=== PATIENT | female | born 1990 | race African-American/Black ===

== ENCOUNTER 2017-01-18 17:27 | Emergency (ER) | payer MEDICAID ==
[~2017-01-18] VITALS: Ht 157.5 cm; Wt 74.8 kg
[~2017-01-18 17:27] MED LIST: AMOXICILLIN500 M2 PO; BENADRYL 25MG C25 MG PO; BUPROPION HCL75 M1 PO; CLARITIN 10MG T10 MG PO; CLONAZEPAM 1MG T1 MG PO; CYCLOBENZAPRINE10 M1 OR; DICLOFENAC SOD75 MG PO; DIFLUCAN150 MG PO; DOXYCYCLINE100 M6 PO; ESCITALOPRAM20 MG PO; FLAGYL 500MG.500 MG PO; HYDROXYZINE 25M25 MG PO; KLONOPIN 0.5MG0.5 MG NG; NOMEDS XX; PROMETH/CODEIN120 ML PO; QUETIAPINE FUMA25 M1 PO; QUETIAPINE FUMA50 M1 PO; ROBINUL FORTE2 MG PO; ZOFRAN ODT4 MG PO
[2017-01-18 17:56] LABS: URINE BILIRUBIN - DIPSTICK NEGATIVE (NEG); URINE BLOOD NEGATIVE (NEG)
--- OUTSIDE RECORDS SUMMARY | 2017-01-18 18:24 | External Medical Summary Rpt ---
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 02 02 0 15 2 HO 40 HE Ac 59 -2 -2 .0 ME 04 ND ti 10 1- 1- 00 TO 34 ER ve 38 20 20 WN 4 SO 50 11 11 N 5 PH RO AR BE MA RT CY W CL 00 02 02 0 20 5 HO 60 HE Ac IN 59 -2 -2 .0 ME 13 ND ti DA 15 1- 1- 00 TO 18 ER ve MY 70 20 20 WN 9 SO CI 80 11 11 N N 1 PH RO HC AR BE L MA RT 15 CY W 0 MG CA PS UL E PO 00 12 02 6 10 30 HO 60 KN Ac LY 57 -1 -0 54 ME 10 IG ti ET 40 3- 7- .0 TO 16 HT ve HY 41 20 20 00 WN 4 LE 20 10 11 SHAWN NE 5 PH EL AR A GL MA YC CY OL 33 50 PO WD 00 12 01 5 9. 30 HO 60 BA Ac 17 -2 -2 00 ME 10 LB ti 30 9- 6- 0 TO 76 AU ve 75 20 20 WN 0 GH 00 10 [address] BLU EW CY P NE 00 09 01 5 30 30 HO 60 KN Ac XI 18 -0 -2 .0 ME 06 IG ti UM 65 7- 4- 00 TO 33 HT ve 04 [address] 03 10 11 SHAWN 1 PH EL 40 AR A MA MG CY CA PS UL E PO 51 12 01 6 10 30 HO 60 KN Ac LY 99 -1 -1 54 ME 10 IG ti ET 10 3- 0- .0 TO 16 HT ve HY 45 20 20 00 WN 4 LE 75 10 11 SHAWN NE 7 PH EL AR A GL MA YC CY OL 33 50 PO WD 00 12 12 5 9. 30 HO 60 BA Ac 17 -2 -2 00 ME 10 LB ti 30 9- 9- 0 TO 76 AU ve 75 20 20 WN 0 GH 00 10 [address] HURT EW CY P PO 61 12 12 0 10 5 HO 60 KN Ac LY 31 -2 -2 .0 ME 10 IG ti MY 40 8- 8- 00 TO 69 HT ve XI 62 20 20 WN 2 N 81 10 10 SHAWN B- 0 PH EL TM AR A P MA EY CY E DR OP S DI 00 10 12 2 2. 20 HO 40 KN Ac 18 -1 -2 00 ME 02 IG ti TA 70 5- 7- 0 TO 88 HT ve T 65 20 20 WN 5 AC 92 10 10 SHAWN UD 0 PH EL IA AR A L MA 12 CY .5 -1 5- 20 MG NE 00 09 12 5 30 30 HO 60 KN Ac XI 18 -0 -2 .0 ME 06 IG ti UM 65 7- 7- 00 TO 33 HT ve 04 [address] 03 10 10 SHAWN 1 PH EL 40 AR A MA MG CY CA PS UL E PO 51 12 12 6 10 30 HO 60 KN Ac LY 99 -1 -1 54 ME 10 IG ti ET 10 3- 3- .0 TO 16 HT ve HY 45 20 20 00 WN 4 LE 75 10 10 SHAWN NE 7 PH EL AR A GL MA YC CY OL 33 50 PO WD FL 49 12 12 0 45 30 HO 60 AL Ac UO 88 -0 -0 .0 ME 09 I ti XE 40 1- 1- 00 TO 60 RI ve TI 73 20 20 WN 4 ZW NE 40 10 10 AN 1 PH HC AR L MA 10 CY MG TA BL ET TR 50 12 12 0 60 30 HO 60 AL Ac AZ 11 -0 -0 .0 ME 09 I ti OD 10 1- 1- 00 TO 60 RI ve ON 43 20 20 WN 5 ZW E 30 10 10 AN 50 2 PH AR MG MA CY TA BL ET 00 11 12 1 9. 30 HO 60 BA Ac 17 -0 -0 00 ME 08 LB ti 30 3- 1- 0 TO 48 AU ve 75 20 20 WN 5 GH 00 10 [address] BLU PATE CY P NE 00 09 11 5 30 30 HO 60 KN Ac XI 18 -0 -2 .0 ME 06 IG ti UM 65 7- 9- 00 TO 33 HT ve 04 [address] 03 10 10 SHAWN 1 PH EL 40 AR A MA MG CY CA PS UL E ON 62 11 11 0 12 30 HO 60 FA Ac DA 75 -0 -0 .0 ME 08 IN ti NS 60 8- 8- 00 TO 57 ve ET 24 20 20 WN 2 MA RO 06 10 10 TT N 4 PH HE OD AR W T MA B 4 CY MG TA BL ET 00 11 11 1 9. 30 HO 60 BA Ac 17 -0 -0 00 ME 08 LB ti 30 3- 3- 0 TO 48 AU ve 75 20 20 WN 5 GH 00 10 [address] BLU PATE CY P NE 00 09 11 5 30 30 HO 60 KN Ac XI 18 -0 -0 .0 ME 06 IG ti UM 65 7- 1- 00 TO 33 HT ve 04 [address] 03 10 10 SHAWN 1 PH EL 40 AR A MA MG CY CA PS UL E TR 50 10 10 0 60 30 HO 60 LA Ac AZ 11 -1 -1 .0 ME 07 KH ti OD 10 8- 8- 00 TO 83 IA ve ON 43 20 20 WN 4 NI E 30 10 10 50 2 PH AR HO MG MA K CY K TA BL ET FL 49 10 10 0 45 15 HO 60 LA Ac UO 88 -1 -1 .0 ME 07 KH ti XE 40 8- 8- 00 TO 84 IA ve TI 73 20 20 WN 9 NI NE 40 10 10 1 PH HC AR HO L MA K 10 CY K MG TA BL ET DI 00 10 10 2 2. 20 HO 40 KN Ac 18 -1 -1 00 ME 02 IG ti TA 70 5- 5- 0 TO 88 HT ve T 65 20 20 WN 5 AC 92 10 10 SHAWN UD 0 PH EL IA AR A L MA 12 CY .5 -1 5- 20 MG AZ 59 10 10 0 6. 5 HO 60 BA Ac IT 76 -0 -0 00 ME 07 LB ti HR 23 6- 6- 0 TO 42 AU ve OM 06 20 20 WN 8 GH YC 00 10 10 IN [address] 25 BLU EW 0 CY P MG TA BL ET 00 10 10 0 9. 30 HO 60 BA Ac 17 -0 -0 00 ME 07 LB ti 30 6- 6- 0 TO 42 AU ve 75 20 20 WN 9 GH 00 10 [address] BLU PATE CY P NE 00 09 10 5 30 30 HO 60 KN Ac XI 18 -0 -0 .0 ME 06 IG ti UM 65 7- 4- 00 TO 33 HT ve 04 [address] 03 10 10 SHAWN 1 PH EL 40 AR A MA MG CY CA PS UL E NA 68 08 09 1 60 30 HO 60 KN Ac MT 46 -2 -1 .0 ME 05 IG ti OX 20 0- 7- 00 TO 75 HT ve EN 19 20 20 WN 2 00 10 10 SHAWN 50 5 PH EL 0 AR A MG MA CY TA BL ET IB 55 08 09 1 90 30 HO 60 KN Ac UP 11 -2 -1 .0 ME 05 IG ti RO 10 0- 7- 00 TO 75 HT ve FE 68 20 20 WN 4 N 40 10 10 SHAWN 80 5 PH EL 0 AR A MG MA CY TA BL ET PO 61 09 09 0 10 10 HO 60 BA Ac LY 31 -1 -1 .0 ME 06 LB ti MY 40 4- 4- 00 TO 65 AU ve XI 62 20 20 WN 1 GH N 81 10 10 B- 0 [address] Annabelle PATE EY CY P E DR OP S NE 00 09 09 5 30 30 HO 60 KN Ac XI 18 -0 -0 .0 ME 06 IG ti UM 65 7- 7- 00 TO 33 HT ve 04 [address] 03 10 10 SHAWN 1 PH EL 40 AR A MA MG CY CA PS UL E 60 08 08 0 20 5 HO 60 KN Ac 25 -3 -3 0. ME 06 IG ti 80 0- 0- 00 TO 07 HT ve 23 20 20 0 WN 7 91 10 10 SHAWN 6 PH EL AR A MA CY NA 00 08 08 0 30 7 HO 60 SA Ac SA 11 -2 -2 .0 ME 06 VA ti L 30 8- 8- 00 TO 01 GE ve SP 30 20 20 WN 0 RA 41 10 10 SA Y 0 PH ND 0. AR RA 05 MA L % CY MT 00 08 08 0 30 10 HO 60 KN Ac OM 59 -2 -2 .0 ME 05 IG ti ET 15 0- 0- 00 TO 75 HT ve ONEILL 30 20 20 WN 1 ZI 71 10 10 SHAWN NE 0 PH EL AR A 25 MA CY MG TA BL ET NA 68 08 08 1 60 30 HO 60 KN Ac MT 46 -2 -2 .0 ME 05 IG ti OX 20 0- 0- 00 TO 75 HT ve EN 19 20 20 WN 2 00 10 10 SHAWN 50 5 PH EL 0 AR A MG MA CY TA BL ET IB 55 08 08 1 90 30 HO 60 KN Ac UP 11 -2 -2 .0 ME 05 IG ti RO 10 0- 0- 00 TO 75 HT ve FE 68 20 20 WN 4 N 40 10 10 SHAWN 80 5 PH EL 0 AR A MG MA CY TA BL ET NE 00 02 08 3 30 30 HO 60 KN Ac XI 18 -0 -0 .0 ME 03 IG ti UM 65 4- 9- 00 TO 24 HT ve 04 [address] 03 10 10 SHAWN 1 PH EL 40 AR A MA MG CY CA PS UL E NE 00 02 07 3 30 30 HO 60 KN Ac XI 18 -0 -1 .0 ME 03 IG ti UM 65 4- 2- 00 TO 24 HT ve 04 [address] 03 10 10 SHAWN 1 PH EL 40 AR A MA MG CY CA PS UL E MONTES 53 06 06 0 20 10 HO 60 BA Ac LF 48 -1 -1 .0 ME 03 LB ti AM 90 6- 6- 00 TO 96 AU ve ET 14 20 20 WN 9 GH HO 60 10 10 XA 5 [address] MALIA HURT EW -T CY P MP DS TA BL ET AC 00 06 06 0 9. 3 HO 40 KN Ac ET 60 -1 -1 00 ME 01 IG ti AM 32 6- 6- 0 TO 83 HT ve IN 33 20 20 WN 1 OP 83 10 10 SHAWN HE 2 PH EL N- AR A CO MA D CY #3 TA BL ET NE 00 02 06 3 30 30 HO 60 KN Ac XI 18 -0 -1 .0 ME 03 IG ti UM 65 4- 4- 00 TO 24 HT ve 04 [address] 03 10 10 SHAWN 1 PH EL 40 AR A MA MG CY CA PS UL E NE 00 02 05 3 30 30 HO 60 KN Ac XI 18 -0 -1 .0 ME 03 IG ti UM 65 4- 8- 00 TO 24 HT ve 04 [address] 03 10 10 SHAWN 1 PH EL 40 AR A MA MG CY CA PS UL E 66 05 05 0 24 8 HO 60 KN Ac 99 -1 -1 0. ME 03 IG ti 20 1- 1- 00 TO 12 HT ve 22 20 20 0 WN 1 00 10 10 SHAWN 4 PH EL AR A MA CY 50 03 03 0 30 10 KR 64 KN Ac 11 -1 -1 .0 OG 16 IG ti 10 2- 2- 00 ER 91 HT ve 30 20 20 0 80 10 10 PH SHAWN 1 AR EL MA A CY # 24 70 9 PE 00 03 03 0 59 1 KR 64 KN Ac RM 47 -1 -1 .0 OG 16 IG ti ET 25 2- 2- 00 ER 91 HT ve HR 24 20 20 1 IN 26 10 10 PH SHAWN 7 AR EL 1% MA A CY LO # TI ON 24 70 9 00 01 02 01 9. 30 KR 64 KN Ac 17 -1 -2 00 OG 06 IG ti 30 2- 6- 0 ER 66 HT ve 75 20 20 7 00 10 10 PH SHAWN 0 AR EL M A L- 70 9 NE 00 02 02 00 30 30 KR 64 KN Ac XI 18 -0 -1 .0 OG 10 IG ti UM 65 4- 1- 00 ER 60 HT ve [address] 03 10 10 PH SHAWN 1 AR EL 40 M A L- MG 70 9 CA PS UL E 00 01 01 00 9. 30 KR 64 KN Ac 17 -1 -2 00 OG 06 IG ti 30 2- 8- 0 ER 66 HT ve 75 20 20 7 00 10 10 PH SHAWN 0 AR EL M A L- 70 9 CL 00 01 01 00 50 25 KR 64 KN Ac IN 37 -1 -2 .0 OG 06 IG ti DA 88 2- 8- 00 ER 66 HT ve MY 68 20 20 6 CI 85 10 10 PH SHAWN N- 4 AR EL BE M A NZ L- OY 70 L 9 PE RO X 1- 5% TR 50 01 01 00 30 30 KR 64 No Ac AZ 11 -0 -2 .0 OG 06 t ti OD 10 5- 8- 00 ER 83 Av ve ON 43 20 20 5 ai E 30 10 10 PH la 50 1 AR bl M e MG L- 70 TA 9 BL ET TR 50 12 12 00 30 30 KR 64 No Ac AZ 11 -0 -1 .0 OG 00 t ti OD 10 7- 7- 00 ER 94 Av ve ON 43 20 20 2 ai E 30 09 09 PH la 50 1 AR bl M e MG L- 70 TA 9 BL ET 66 11 12 00 20 10 KR 63 KN Ac 99 -2 -0 0. OG 98 IG ti 20 4- 3- 00 ER 70 HT ve 22 20 20 0 6 00 09 09 PH SHAWN 4 AR EL M A L- 70 9 FL 49 11 12 00 30 20 KR 63 No Ac UO 88 -2 -0 .0 OG 98 t ti XE 40 3- 3- 00 ER 43 Av ve TI 73 20 20 4 ai NE 40 09 09 PH la 1 AR bl HC M e L L- 10 70 9 MG TA BL ET CI 55 11 11 00 9. 18 KR 63 No Ac TA 11 -0 -1 00 OG 95 t ti LO 10 9- 9- 0 ER 87 Av ve MT 34 20 20 2 ai AM 40 09 09 PH la 1 AR bl HB M e R L- 40 70 9 MG TA BL ET TR 50 11 11 00 30 20 KR 63 No Ac AZ 11 -0 -1 .0 OG 95 t ti OD 10 9- 9- 00 ER 87 Av ve ON 43 20 20 0 ai E 30 09 09 PH la 50 1 AR bl M e MG L- 70 TA 9 BL ET ON 00 10 11 00 12 30 WA 71 CE Ac DA 78 -2 -0 .0 L- 55 LL ti NS 15 5- 5- 00 MA 40 AR ve ET 23 20 20 RT 9 OS RO 86 09 09 I N 4 PH - OD AR YO T MA RB 4 CY A MG PA #5 TR TA 71 IC BL K ET M IB 53 10 11 00 24 8 KR 63 FI Ac UP 74 -2 -0 .0 OG 93 NL ti RO 60 2- 5- 00 ER 47 EY ve FE 46 20 20 9 N 60 09 09 PH PA 80 5 AR UL 0 M W MG L- 70 TA 9 BL ET 14 09 10 00 20 10 KR 63 KN Ac 29 -2 -0 .0 OG 87 IG ti 00 8- 8- 00 ER 25 HT ve 24 20 20 2 22 09 09 PH SHAWN 0 AR EL M A L- 70 9 OG 52 08 09 00 28 28 KR 63 CE Ac ES 54 -1 -1 .0 OG 78 LL ti TR 40 1- 0- 00 ER 08 AR ve EL 84 20 20 6 OS 82 09 09 PH I TA 8 AR - BL M YO ET L- RB 70 A 9 PA TR IC K M MT 68 08 09 00 30 10 KR 63 KN Ac OM 38 -2 -1 .0 OG 80 IG ti ET 20 7- 0- 00 ER 98 HT ve ONEILL 04 20 20 7 ZI 10 09 09 PH SHAWN NE 1 AR EL M A 25 L- 70 MG 9 TA BL ET 00 09 09 00 16 30 KR 63 KN Ac 17 -0 -1 .0 OG 82 IG ti 33 3- 0- 00 ER 52 HT ve 00 20 20 8 10 09 09 PH SHAWN 1 AR EL M A L- 70 9 IB 53 08 08 00 90 30 KR 63 KN Ac UP 74 -1 -2 .0 OG 79 IG ti RO 60 7- 7- 00 ER 21 HT ve FE 46 20 20 6 N 60 09 09 PH SHAWN 80 5 AR EL 0 M A MG L- 70 TA 9 BL ET MONTES 53 08 08 00 10 5 KR 63 CL Ac LF 74 -1 -2 .0 OG 77 AR ti AM 60 0- 7- 00 ER 97 K ve ET 27 20 20 1 SHAWN HO 20 09 09 PH HN XA 5 AR ZO M LE L- -T 70 MP 9 DS TA BL ET NA 00 08 08 00 10 5 KR 63 CE Ac MT 09 -1 -2 .0 OG 78 LL ti OX 30 0- 7- 00 ER 08 AR ve EN 14 20 20 7 OS 90 09 09 PH I 50 5 AR - 0 M YO MG L- RB 70 A TA 9 PA BL TR ET IC K M ON 68 08 08 00 12 30 KR 63 KN Ac DA 46 -1 -2 .0 OG 78 IG ti NS 20 3- 7- 00 ER 53 HT ve ET 15 20 20 7 RO 71 09 09 PH SHAWN N 3 AR EL OD M A T L- 4 70 MG 9 TA BL ET OG 52 07 08 00 28 25 KR 63 CE Ac ES 54 -3 -1 .0 OG 48 LL ti TR 40 0- 3- 00 ER 26 AR ve EL 84 20 20 6 OS 82 09 09 PH I TA 8 AR - BL M YO ET L- RB 70 A 9 PA TR IC K M MONTES 53 07 07 00 20 10 KR 63 DA Ac LF 74 -1 -3 .0 OG 46 BN ti AM 60 7- 0- 00 ER 33 EY ve ET 27 20 20 5 HO 20 09 09 PH GI XA 5 AR NA ZO M LE L- -T 70 MP 9 DS TA BL ET 67 07 07 00 23 30 KR 63 DA Ac 40 -1 -3 7. OG 46 BN ti 50 7- 0- 00 ER 33 EY ve 43 20 20 0 6 00 09 09 PH GI 8 AR NA M L- 70 9 AM 00 05 06 00 20 10 KR 63 DA Ac OX 09 -2 -0 .0 OG 38 BN ti IC 32 8- 4- 00 ER 32 EY ve IL 26 20 20 9 LI 40 09 09 PH GI N 1 AR NA 87 M 5 L- MG 70 9 TA BL ET 60 05 06 00 24 12 KR 63 DA Ac 25 -2 -0 0. OG 38 BN ti 80 8- 4- 00 ER 33 EY ve 23 20 20 0 2 91 09 09 PH GI 6 AR NA M L- 70 9 IB 53 05 06 00 90 23 KR 63 DA Ac UP 74 -2 -0 .0 OG 38 BN ti RO 60 8- 4- 00 ER 33 EY ve FE 46 20 20 3 N 60 09 09 PH GI 80 5 AR NA 0 M MG L- 70 TA 9 BL ET 59 05 06 00 8. 25 KR 63 DA Ac 31 -2 -0 50 OG 38 BN ti 00 8- 4- 0 ER 33 EY ve 57 20 20 1 92 09 09 PH GI 0 AR NA M L- 70 9 53 05 06 00 14 7 KR 63 WA Ac 48 -1 -0 .0 OG 36 GN ti 90 9- 4- 00 ER 78 ER ve 14 20 20 3 00 09 09 PH PH 1 AR IL M LI L- P 70 L 9 00 05 05 00 10 2 KR 45 WA Ac 40 -0 -2 .0 OG 21 GN ti 60 8- 1- 00 ER 31 ER ve 35 20 20 9 70 09 09 PH PH 5 AR IL M LI L- P 70 L 9 00 05 05 00 42 14 KR 63 WA Ac 07 -0 -2 .0 OG 35 GN ti 46 8- 1- 00 ER 09 ER ve 34 20 20 3 62 09 09 PH PH 0 AR IL M LI L- P 70 L 9 VA 00 04 05 00 21 7 KR 63 GA Ac LT 17 -2 -0 .0 OG 32 SK ti RE 30 2- 7- 00 ER 20 IN ve X 56 20 20 0 S 1 [address] GM 4 AR EV M EN CA L- G PL 70 ET 9 NA 00 04 05 00 17 30 KR 63 DA Ac SO 08 -2 -0 .0 OG 33 BN ti NE 51 8- 7- 00 ER 17 EY ve X 28 20 20 6 50 80 09 09 PH GI 1 AR NA MC M G L- NA 70 SA 9 L SP RA Y MU 45 04 05 00 22 10 KR 63 GA Ac PI 80 -2 -0 .0 OG 32 SK ti RO 20 2- 7- 00 ER 19 IN ve CI 11 20 20 9 S N [address] 2% 2 AR EV M EN OI L- G NT 70 ME 9 NT 00 03 03 00 10 3 KR 45 SA Ac 40 -0 -2 .0 OG 18 DE ti 61 9- 6- 00 ER 99 K ve 72 20 20 8 MO 10 09 09 PH ONEILL 5 AR ME M D L- H 70 9 00 01 01 00 15 4 CV 19 AD Ac 12 -2 -3 0. S 98 KI ti 10 3- 0- 00 PH 30 NS ve 63 20 20 0 AR 81 09 09 MA JU 6 CY LI A 23 A 32 AZ 59 01 01 00 6. 5 CV 19 AD Ac IT 76 -2 -3 00 S 98 KI ti HR 23 3- 0- 0 PH 29 NS ve OM 06 20 20 AR YC 00 09 09 MA JU IN 1 CY LI A 25 23 A 0 32 MG TA BL ET VA 00 01 01 00 24 24 KR 63 HO Ac LT 17 -0 -1 .0 OG 13 LL ti RE 30 8- 5- 00 ER 36 EN ve X 56 20 20 4 1 50 09 09 PH SHAWN GM 4 AR AN M N CA L- E PL 70 ET 9 PE 00 12 01 00 28 7 KR 63 BA Ac NI 78 -1 -0 .0 OG 09 LD ti CI 11 3- 1- 00 ER 12 WI ve LL 65 20 20 8 N IN 51 08 09 PH AA 0 AR RO VK M N L- B 50 70 0 9 MG TA BL ET 00 12 01 00 20 3 KR 45 BA Ac 40 -1 -0 .0 OG 15 LD ti 60 3- 1- 00 ER 77 WI ve 35 20 20 9 N 70 08 09 PH AA 5 AR RO M N L- B 70 9 CH 00 12 01 00 47 11 KR 63 BA Ac LO 11 -1 -0 3. OG 09 LD ti RH 62 3- 1- 00 ER 12 WI ve EX 00 20 20 0 9 N ID 11 08 09 PH AA IN 6 AR RO E M N 0. L- B 12 70 % 9 RI NS E AC 00 12 12 00 20 5 KR 45 HO Ac ET 09 -0 -1 .0 OG 15 LL ti AM 30 2- 8- 00 ER 27 EN ve IN 15 20 20 9 OP 01 08 08 PH SHAWN HE 0 AR AN N- M N CO L- E D 70 #3 9 TA BL ET 00 11 12 00 12 3 CV 17 HO Ac 40 -1 -0 .0 S 93 LL ti 60 8- 4- 00 PH 54 EN ve 35 20 20 AR 70 08 08 MA SHAWN 5 CY AN N 23 E 32 PE 00 11 12 00 28 7 CV 17 HO Ac NI 09 -1 -0 .0 S 93 LL ti CI 31 8- 4- 00 PH 53 EN ve LL 17 20 20 AR IN 41 08 08 MA SHAWN 0 CY AN VK N 23 E 50 32 0 MG TA BL ET SF 60 01 11 01 51 15 CV 93 CO Ac 25 -0 -0 .0 S 18 X ti 50 80 8- 7- 00 PH 57 AL ve 00 15 20 20 AR IS 00 [address] 1 CY B US 23 CR 32 EA M NE 24 10 10 00 10 7 KR 62 SH Ac OM 20 -0 -0 .0 OG 94 ti YC 80 1- 9- 00 ER 90 HY ve IN 63 20 20 7 -P 56 08 08 PH RO OL 2 AR NA YM M LD YX L- G IN 70 -H 9 C EA R MONTES SP MT 00 09 09 00 10 3 CV 15 CE Ac OM 60 -1 -2 .0 S 93 LL ti ET 35 6- 6- 00 PH 26 AR ve ONEILL 43 20 20 AR OS ZI 72 08 08 MA I NE 1 CY - YO 12 23 RB .5 32 A PA MG TR IC TA K BL M ET 00 09 09 00 12 4 CV 15 CE Ac 40 -1 -2 .0 S 93 LL ti 60 6- 6- 00 PH 25 AR ve 35 20 20 AR OS 70 08 08 MA I 5 CY - YO 23 RB 32 A PA TR IC K M 00 09 09 00 40 10 KR 62 PO Ac 02 -1 -[address] ti 96 6- 6- 00 ER 16 ON ve 09 20 20 3 66 08 08 PH HE 0 AR NR M Y L- 70 9 LO 60 05 09 01 30 30 KR 62 PO Ac RA 50 -0 -[address] ti TA 50 7- 1- 00 ER 42 ON ve DI 14 20 20 3 NE 70 08 08 PH HE 1 AR NR 10 M Y L- MG 70 9 TA BL ET NA 68 09 09 00 12 6 KR 62 AH Ac MT 46 -0 -1 .0 OG 89 ME ti OX 20 2- 1- 00 ER 48 D ve EN 17 20 20 7 MU 90 08 08 PH ONEILL SO 1 AR MM DI M AD UM L- A 70 55 9 0 MG TA B MONTES 53 08 09 00 24 6 CV 15 CE Ac LF 74 -3 -1 .0 S 46 LL ti AM 60 1- 1- 00 PH 65 AR ve ET 27 20 20 AR OS HO 20 08 08 MA I XA 5 CY - ZO YO LE 23 RB -T 32 A MP PA TR DS IC K TA M BL ET PO 24 08 09 00 10 7 KR 62 DA Ac LY 20 -2 -1 .0 OG 88 BN ti MY 80 5- 1- 00 ER 01 EY ve XI 31 20 20 9 N 51 08 08 PH GI B- 0 AR NA TM M P L- EY [address] OP S NA 68 05 06 00 12 6 KR 62 AH Ac MT 46 -2 -0 .0 OG 73 ME ti OX 20 6- 5- 00 ER 73 D ve EN 17 20 20 0 MU 90 08 08 PH ONEILL SO 1 AR MM DI M AD UM L- A 70 55 9 0 MG TA B LO 60 05 05 00 30 30 KR 62 No Ac RA 50 -0 -2 .0 OG 70 t ti TA 50 7- 2- 00 ER 42 Av ve DI 14 20 20 3 ai NE 70 08 08 PH la 1 AR bl 10 M e L- MG 70 9 TA BL ET 00 05 05 00 20 10 KR 62 No Ac 52 -0 -2 .0 OG 70 t ti 71 7- 2- 00 ER 42 Av ve 44 20 20 5 ai 30 08 08 PH la 5 AR bl M e L- 70 9 60 05 05 00 24 12 KR 62 No Ac 25 -0 -2 0. OG 70 t ti 80 7- 2- 00 ER 42 Av ve 41 20 20 0 4 ai 51 08 08 PH la 6 AR bl M e L- 70 9 00 04 05 01 12 3 CV 11 No Ac 40 -1 -0 .0 S 54 t ti 60 8- 8- 00 PH 66 Av ve 35 20 20 AR ai 70 08 08 MA la 5 CY bl e 23 32 AM 00 04 04 00 28 8 CV 11 No Ac OX 09 -1 -2 .0 S 54 t ti IC 33 8- 4- 00 PH 65 Av ve IL 10 20 20 AR ai LI 90 08 08 MA la N 5 CY bl 50 e 0 23 MG 32 CA PS UL E 00 04 04 00 12 3 CV 11 No Ac 40 -1 -2 .0 S 54 t ti 60 8- 4- 00 PH 66 Av ve 35 20 20 AR ai 70 08 08 MA la 5 CY bl e 23 32 SF 60 01 03 00 51 15 CV 93 No Ac 25 -0 -2 .0 S 18 t ti 50 80 8- 4- 00 PH 57 Av ve 00 15 20 20 AR ai 00 [address] 1 CY bl US e 23 CR 32 EA M 00 01 03 00 20 3 CV 93 No Ac 40 -0 -2 .0 S 17 t ti 60 8- 4- 00 PH 74 Av ve 35 20 20 AR ai 70 08 08 MA la 5 CY bl e 23 32 PE 00 01 03 00 30 8 CV 93 No Ac NI 09 -0 -2 .0 S 17 t ti CI 31 8- 4- 00 PH 75 Av ve LL 17 20 20 AR ai IN 41 08 08 MA la 0 CY bl VK e 23 50 32 0 MG TA BL ET 59 10 03 01 60 30 CV 90 No Ac 36 -2 -2 .0 S 75 t ti 62 2- 4- 00 PH 58 Av ve 74 20 20 AR ai 40 07 08 MA la 1 CY bl e 23 32 45 10 03 01 90 30 CV 90 No Ac 80 -2 -2 .0 S 75 t ti 20 2- 4- 00 PH 57 Av ve 42 20 20 AR ai 79 07 08 MA la 0 CY bl e 23 32 Immunization Name Date Route CVX Reacti Commen Provid Is Given on t er Refuse d 4VHPV JR No VACCIN 2008 , E 3 DAO DOSE SCHEDU LE FOR IM USE ANTOINETTE [facility] No VACCIN 2008 , COBY Matute LIVE FOR SUBCUT ANEOUS USE TDAP [facility] No VACCIN 2009 , COBY E 7 YRS/> IM HEPB [facility] No VACCIN 2008 , COBY E PED/AD OLESC 3 DOSE SCHEDU LE IM MCV4 Mening [facility] No MENACW 2008 ococcu , COBY Y CONJ s VACC vaccin GRPS e ACYW-1 admini 35 IM stered USE ; formul ation not specif ied. MCV4 Mening [facility] No MENACW 2008 ococcu , COBY Y CONJ s VACC vaccin GRPS e ACYW-1 admini 35 IM stered USE ; formul ation not specif ied. HEPB [facility] No VACCIN 2008 , COBY E PED/AD OLESC 3 DOSE SCHEDU LE IM 4VHPV [facility] No VACCIN 2008 , COBY E 3 DOSE SCHEDU LE FOR IM USE [facility] Sign[facility] 07-08-2013 02:26 Name Value Interpretat Reference Comment ion Range Body 97.9 [degF] Temperature BP 45 mm[Hg] Diastolic BP Systolic 97 mm[Hg] Heart 78 /min Rate/Pulse O2% 98 % Respiratory 18 /min Rate 07-08-2013 02:19 Name Value Interpretat Reference Comment ion Range Body 97.9 [degF] Temperature BP 45 mm[Hg] Diastolic BP Systolic 97 mm[Hg] Heart 78 /min Rate/Pulse O2% 98 % Respiratory 18 /min Rate 05-30-2013 15:26 Name Value Interpretat Reference Comment ion Range Body 98.6 [degF] Temperature BP 67 mm[Hg] Diastolic BP Systolic 122 mm[Hg] Heart 100 /min Rate/Pulse O2% 98 % Respiratory 16 /min Rate 05-30-2013 15:24 Name Value Interpretat Reference Comment ion Range BP 67 mm[Hg] Diastolic BP Systolic 122 mm[Hg] Heart 100 /min Rate/Pulse O2% 98 % Respiratory 16 /min Rate Results Labs Lab Lab Date Result Refere Interp Status Commen Order Detail nces retati t Range on CHLAMYDIA AND GONORRHEA TESTING (01-29-2015 11:00) Chlamyd NEGATIV complet ia 015 E ed trachom 11:00 atis rRNA [Presen ce] in Unspeci fied specime n by Probe & target amplifi cation method Neisser NEGATIV complet ia 015 E ed gonorrh 11:00 oeae rRNA [Presen ce] in Unspeci fied specime n by Probe & target amplifi cation method Treponema pallidum IgG Ab [Presence] in Serum by Immunoassay (01-29-2015 11:00) Trepone 07-14-2 UNSATIS complet ma 015 FACTORY ed pallidu 11:00 : SERUM m IgG Ab HEMOLYZ [Presen ED ce] in Serum by Immunoa ssay CHLAMYDIA AND GONORRHEA TESTING (01-29-2015 11:00) COLLECT URINE complet OR 015 GEN ed 11:00 PROBE ETHNICI BLACK, complet TY 015 NON-HIS ed 11:00 PANIC KIT complet EXPIRAT 015 015 ed ION 11:00 DATE SYMPTOM YES complet S 015 ed 11:00 REASON SEX complet FOR 015 PARTNER ed REQUEST 11:00 REFERRA L SPECIME URINE complet N 015 ed SOURCE 11:00 PREGNAN NO complet T 015 ed 11:00 CHART N/A complet NUMBER 015 ed 11:00 Chlamyd Pending complet ia 015 ed trachom 11:00 atis rRNA [Presen ce] in Unspeci fied specime n by Probe & target amplifi cation method Neisser Pending complet ia 015 ed gonorrh 11:00 oeae rRNA [Presen ce] in Unspeci fied specime n by Probe & target amplifi cation method Treponema pallidum IgG Ab [Presence] in Serum by Immunoassay (01-29-2015 11:00) COLLECT A. REYNA complet OR 015 ed 11:00 ETHNICI AA complet TY 015 ed 11:00 PURPOSE DIAGNOS complet OF 015 TIC ed EXAM 11:00 SPECIME BLOOD complet N 015 ed SOURCE 11:00 CHART N/A complet NUMBER 015 ed 11:00 Trepone Pending complet ma 015 ed pallidu 11:00 m IgG Ab [Presen ce] in Serum by Immunoa ssay Treponema pallidum IgG Ab [Presence] in Serum by Immunoassay (01-22-2015 18:15) Trepone NON-OTIS complet ma 015 CTIVE ed pallidu 18:15 m IgG Ab [Presen ce] in Serum by Immunoa ssay Treponema pallidum IgG Ab [Presence] in Serum by Immunoassay (01-22-2015 18:15) COLLECT MSB complet OR 015 ed 18:15 ETHNICI AA complet TY 015 ed 18:15 PURPOSE ROUTINE complet OF 015 ed EXAM 18:15 SPECIME BLOOD complet N 015 ed SOURCE 18:15 CHART NA complet NUMBER 015 ed 18:15 Trepone Pending complet ma 015 ed pallidu 18:15 m IgG Ab [Presen ce] in Serum by Immunoa ssay COMPREHENSIVE METABOLIC PANEL (07-08-2013 00:55) Glucose 78 74-106 complet 013 mg/dL ed Bld-mCn 00:55 c BUN 7 mg/dL 7-18 complet Bld-mCn 013 ed c 00:55 Creat 0.8 0.6-1.0 complet SerPl-m 013 mg/dL ed Cnc 00:55 Creat 113 50-200 complet Cl 013 ML/MIN ed predict 00:55 ed SerPl C-G-vRa te GFR/BSA 91 59- complet .pred 013 ML/MIN ed SerPl 00:55 Schwart z-vRate Sodium 140 136-145 complet SerPl-s 013 mmoL/L ed Cnc 00:55 Potassi 4.0 3.5-5.1 complet um 013 mmoL/L ed SerPl-s 00:55 Cnc Chlorid 105 98-107 complet e 013 mmoL/L ed SerPl-s 00:55 Cnc CO2 26 21.0-32 complet SerPl-s 013 mmoL/L .0 ed Cnc 00:55 Calcium 8.8 8.5-10. complet 013 mg/dL 1 ed SerPl-m 00:55 Cnc Prot 7.4 6.4-8.2 complet SerPl-m 013 gm/dL ed Cnc 00:55 Albumin 4.2 3.4-5.0 complet 013 gm/dL ed SerPl-m 00:55 Cnc Globuli 3.2 1.3-3.2 complet n 013 gm/dL ed Ser-mCn 00:55 c Albumin 07-08-2 1.3 UNK 1.1-1.8 complet /Glob 013 ed SerPl-m 00:55 Rto Bilirub 07-08-2 0.3 0.2-1.0 complet 013 mg/dL ed SerPl-m 00:55 Cnc AST 07-08-2 14 U/L 15-37 complet SerPl-c 013 ed Cnc 00:55 ALT 07-08-2 35 U/L 30-65 complet SerPl-c 013 ed Cnc 00:55 ALP 07-08-2 62 U/L 50-136 complet SerPl-c 013 ed Cnc 00:55 Amylase SerPl-cCnc (07-08-2013 00:55) Amylase 07-08-2 78 U/L 25-115 complet 013 ed SerPl-c 00:55 Cnc LIPASE (07-08-2013 00:55) LIPASE 2 162 U/L 73-393 complet 013 ed 00:55 CBC with AUTO DIFF (07-08-2013 00:55) WBC # 07-08-2 5.3 4.8-10. complet Bld 013 K/MM3 8 ed Auto 00:55 RBC # 07-08-2 4.56 4.2-5.4 complet Bld 013 M/mm3 ed Auto 00:55 Hgb 07-08-2 14.5 12.2-16 complet Bld-mCn 013 g/dL .2 ed c 00:55 Hct Fr 07-08- 42.0 % 37.0-47 complet Bld 013 .0 ed 00:55 MCV RBC 07-08-2 92.2 fl 82.2-97 complet 013 .8 ed 00:55 MCH RBC 07-08-2 31.8 pg 27-31.2 complet Qn 013 ed Auto 00:55 MEAN 07-08-2 34.5 31.8-35 complet CORPUSC 013 g/dl .4 ed ULAR 00:55 HGB CONC RDW RBC 07-08-2 13.7 % 11.5-17 complet Auto 013 .5 ed 00:55 Platele 07-08-2 302 142-424 complet t Bld 013 K/mm3 ed Ql 00:55 Manual MEAN 07-08-2 7.3 fl 7.4-10. complet PLATELE 013 4 ed T 00:55 VOLUME Granulo 12-21-2 33.0 % 37.0-80 complet cytes 013 .0 ed Fr Bld 00:55 Auto LYMPH % 12-21-2 54.8 % 10-50.0 complet 013 ed 00:55 Monocyt 12-21-2 8.6 % 1.7-9.3 complet es Fr 013 ed Bld 00:55 Auto Eosinop 12-21-2 2.9 % 0.1-12. complet hil Fr 013 0 ed Bld 00:55 Auto Basophi 12-21-2 0.7 % 0.1-2.0 complet ls Fr 013 ed Bld 00:55 Auto Granulo 12-21-2 1.7 1.8-7.8 complet cytes # 013 K/mm3 ed Bld 00:55 Auto Lymphoc 12-21-2 2.9 0.7-4.5 complet ytes Fr 013 K/mm3 ed Bld 00:55 Auto Monocyt 12-21-2 0.5 0.1-1.0 complet es # 013 K/mm3 ed Bld 00:55 Auto Eosinop 12-21-2 0.2 0.0-0.4 complet hil # 013 K/mm3 ed Bld 00:55 Auto Basophi 12-21-2 0.0 0-0.2 complet ls # 013 K/MM3 ed Bld 00:55 Auto B-HCG Ur Ql (07-07-2013 23:34) B-HCG 12-20-2 NEGATIV NEG complet Ur Ql 013 E ed 23:34 URINALYSIS/COMPLETE (07-07-2013 23:34) URINE 12-20-2 YELLOW YELLOW complet COLOR 013 ed 23:34 URINE 12-20-2 CLEAR CLEAR complet APPEARA 013 ed NCE 23:34 URINE 12-20-2 NEGATIV NEG complet GLUCOSE 013 E ed - 23:34 DIPSTIC K URINE 12-20-2 NEGATIV NEG complet BILIRUB 013 E ed IN - 23:34 DIPSTIC K URINE 12-20-2 NEGATIV NEG complet KETONE 013 E mg/dL ed 23:34 URINE 12-20-2 Greater 1.005-1 complet SPECIFI 013 than .030 ed C 23:34 or GRAVITY equal to 1.030 URINE 12-20-2 NEGATIV NEG complet BLOOD 013 E ed 23:34 URINE 12-20-2 6.0 UNK 5.0-8.5 complet PH 013 ed 23:34 URINE 12-20-2 NEGATIV NEG complet PROTEIN 013 E mg/dL ed - 23:34 DIPSTIC K URINE 12-20-2 0.2 NEG complet UROBILI 013 E.U./dL ed NOGEN - 23:34 DIPSTIC K URINE 12-20-2 NEGATIV NEG complet NITRATE 013 E ed - 23:34 DIPSTIC K URINE 12-20-2 NEGATIV NEG complet LEUK 013 E ed ESTERAS 23:34 E URINE 12-20-2 3-5 O complet WBC 013 wbc/hpf ed 23:34 URINE 12-20-2 10-20 0-5 complet SQUAMOU 013 #/hpf ed S CELLS 23:34 URINALYSIS/COMPLETE (05-30-2013 14:15) URINE 11-12-2 YELLOW YELLOW complet COLOR 013 ed 14:15 URINE 11-12-2 SL CLEAR complet APPEARA 013 CLOUDY ed NCE 14:15 URINE 11-12-2 NEGATIV NEG complet GLUCOSE 013 E ed - 14:15 DIPSTIC K URINE 11-12-2 NEGATIV NEG complet BILIRUB 013 E ed IN - 14:15 DIPSTIC K URINE 11-12-2 NEGATIV NEG complet KETONE 013 E mg/dL ed 14:15 URINE 11-12-2 1.020 1.005-1 complet SPECIFI 013 UNK .030 ed C 14:15 GRAVITY URINE 11-12-2 1+ NEG complet BLOOD 013 ed 14:15 URINE 11-12-2 7.5 UNK 5.0-8.5 complet PH 013 ed 14:15 URINE 11-12-2 NEGATIV NEG complet PROTEIN 013 E mg/dL ed - 14:15 DIPSTIC K URINE 11-12-2 0.2 NEG complet UROBILI 013 E.U./dL ed NOGEN - 14:15 DIPSTIC K URINE 11-12-2 NEGATIV NEG complet NITRATE 013 E ed - 14:15 DIPSTIC K URINE 11-12-2 NEGATIV NEG complet LEUK 013 E ed ESTERAS 14:15 E URINE 11-12-2 5-10 0 complet RBC 013 rbc/hpf ed 14:15 URINE 11-12-2 OCC O complet WBC 013 wbc/hpf ed 14:15 URINE 11-12-2 20-50 0-5 complet SQUAMOU 013 #/hpf ed S CELLS 14:15 URINE 11-12-2 1+ O complet BACTERI 013 ed A 14:15 URINE 11-12-2 1+ OCC complet MUCUS 013 ed 14:15 Procedures Procedure DOS Code Location Performer Comment US SOFT [place] CH[place] TISSUE 6 MEDICAL HEAD & IMAGING NECK REAL ASS TIME IMGE DOCM RADEX 51493 [facility] SPINE 6 [facility] CERVICAL INC INC 4 OR 5 VIEWS RADIOLOGI 67967 [facility] C 6 [facility] EXAMINATI INC INC ON PELVIS 1/2 VIEWS RADIOLOGI 18788 [place] LINDA ALL C 6 MEDICAL EXAMINATI IMAGING ON TIBIA ASS & FIBULA 2 VIEWS CRTCHS E0114 ADVANCED ADVANCED UNDARM 6 TECHNOLOG TECHNOLOG OTH THAN IES INC IES INC WOOD PAIR PAD TIP&[place] [address] [facility] HEAD/BRAI 6 [facility] N W/O INC INC CONTRAST MATERIAL RADIOLOGI 97815 [facility] C 6 [facility] EXAMINATI INC INC ON CHEST SINGLE VIEW FRONTAL URINE 55938 [facility] 6 [facility] TEST INC [place] [address] [facility] CERVICAL 6 [facility] SPINE W/O INC INC CONTRAST MATERIAL RADEX 35325 [facility] ANKLE 6 [facility] COMPLETE INC INC MINIMUM 3 VIEWS ANKLE L4350 ADVANCED ADVANCED CONTROL 6 TECHNOLOG TECHNOLOG ORTHOSIS IES INC IES INC STIRRUP STYL RIGID PREFAB RADIOLOGI 88467 [place] LIN[place] ALL C 6 MEDICAL EXAMINATI IMAGING ON ANKLE ASS 2 VIEWS IADNA 78544 BIO BIO TRICHOMON 6 REFERNCE REFERNCE LABORATOR LABORATOR VAGINALIS IES IES AMPLIFIED PROBE TECH IADNA NOS 28746 BIO BIO 6 REFERNCE REFERNCE AMPLIFIED LABORATOR LABORATOR PROBE TQ IES IES EACH ORGANISM IADNA 77883 BIO BIO NEISSERIA 6 REFERNCE REFERNCE LABORATOR LABORATOR GONORRHOE IES IES AE AMPLIFIED PROBE TQ IADNA 63133 SOCORRO EDGAR NEISSERIA 6 TALA ECHEVERRIA SIENNA GONORRHOE AE DIRECT PROBE TQ URINE 06569 SOCORRO QUINTANILLA R 6 TALA EDGAR MD TEST VISUAL COLOR CMPRSN METHS CYTP C/V 08103 BIO BIO AUTO THIN 6 REFERNCE REFERNCE LYR LABORATOR LABORATOR PREPJ SCR IES IES MNL RESCR PHYS CULTURE 88201 SOCORRO EDGAR CHLAMYDIA 6 TALA ECHEVERRIA SIENNA ANY SOURCE IADNA 41700 BIO BIO CHLAMYDIA 6 REFERNCE REFERNCE LABORATOR LABORATOR TRACHOMAT IES IES IS AMPLIFIED PROBE TQ THERAPEUT 51798 [facility] IC 6 [facility] INJECTION INC [place] [address] LINH MELTON MAXILLOFA 5 [facility] CIAL W/O INC INC CONTRAST MATERIAL GROUND A0425 [facility] AMBULANCE PER SERVICE SERVICE STATUTE MILE AMBULANCE A0429 [facility] SERVICE 5 AMBULANCE AMBULANCE BLS SERVICE SERVICE EMERGENCY TRANSPORT RADEX 34281 [facility] SPINE 5 MEDICAL AMBER CERVICAL IMAGING 4 OR 5 ASS VIEWS RADEX ABD 44732 [facility] COMPL 5 MEDICAL AMBER AQT ABD IMAGING W/S/E/D ASS VIEWS 1 VIEW CH THERAPEUT 85431 LIN[facility] MELTON IC 5 [facility] HOSP PROPHYLAC INC INC TIC/DX INJECTION SUBQ/[place] [address] [place] CH[place] ABDOMEN & 5 MEDICAL AMBER PELVIS IMAGING W/O ASS CONTRAST MATERIAL US PREG 56356 [place] BEINEKE UTERUS 4 MEDICAL COSTA REAL TIME IMAGING W/IMAGE ASS DCMTN TRANSVAG RADIOLOGI 45098 [facility] C EXAM 4 MEDICAL AMBER CHEST 2 IMAGING VIEWS ASS FRONTAL&L ATERAL PHYSICAL 57969 [facility] THERAPY 4 [facility] HOS[facility] EVALUATIO INC INC N RADEX HIP 11196 [facility] 4 MEDICAL MEDICAL UNILATERA IMAGING IMAGING L ASS ASS COMPLETE MINIMUM 2 VIEWS BASIC 98432 [facility] METABOLIC 4 NELLIE NELLIE PANEL HOLDINGS HOLDINGS CALCIUM TOTAL URNLS DIP 62782 LAB [facility] LAB JACOBO 4 NELLIE NELLIE STICK/TAB HOLDINGS HOLDINGS [place] [address] CHRIS CHRIS ABDOMEN & 4 AMBER AMBER PELVIS W/O CONTRAST MATERIAL HOSPITAL 32275 [facility] BENSAL DISCHARGE 1 MEDICAL CASI DAY SERV MANAGEMEN FOUNDATIO T 30 MIN/< LOCALIZE 80998 DEIDRA CONNELL CEREBRAL 1 MEDICAL CASI SEIZURE SERV CABLE/RAD FOUNDATIO IO EEG/VIDEO INITIAL 74211 [facility] 1 MEDICAL CASI CARE/DAY SERV 30 FOUNDATIO MINUTES AMB A0427 [facility] SERVICE 1 [facility] EMS CO EMS EMERGENCY TRANSPORT LEVEL 1 GROUND A0425 [facility] MILEAGE 1 [facility] PER CO EMS CO EMS STATUTE MILE IAADIADOO 89369 REYNOLD VILLAVICENCIO 1 ENMA STREPTOCO PEDIATRIC CCUS S & INTER GROUP A THER 38351 [facility]OD[facility] PROPH/DX 1 YOUSIF YOUSIF NJX IV PUSH SINGLE/1S T SBST/DRUG DEEP D9220 [facility] SEDATION/ 1 YOUSIF YOUSIF GENERAL ANESTHESI A-1ST 30 MINUTES ORTHOPANT 30471 [facility] OGRAM 1 YOUSIF YOUSIF RADEX 34564 [facility] ABDOMEN 1 1 N N [facility] ANTEROPOS HOSPITA HOSPITA TERIOR VIEW URINE 25688 REYNOLD ELISE 1 AND TEST PEDIATRIC VISUAL S & INTER COLOR CMPRSN METHS URNLS DIP 80173 [facility] 1 AND STICK/TAB PEDIATRIC LET RGNT S & INTER NON-AUTO [place] [address] [facility] STREPTOCO 0 N N CCUS [facility] HOSPITA CUL BACT 57857 [facility] XCPT 0 N N URINE [facility] BLO[facility]ST[facility] HOSPITA OL AEROBIC ISOL RADEX 55491 [facility] [place] BRICE MAT FOOT 0 RADIOLOGY COMPLETE MINIMUM 3 VIEWS RADEX 21838 [facility] [place] BRICE MAT ANKLE 0 RADIOLOGY COMPLETE MINIMUM 3 VIEWS CUL BACT 98907 LAB [facility] LAB JACOBO XCPT 0 AMERIC AMERIC URINE HOLDING HOLDING BLOOD/STO OL AEROBIC ISOL INCISION 32413 [facility] & 0 AND DRAINAGE PEDIATRIC ABSCESS S & INTER SIMPLE/SI NGLE GROUND A0425 [facility] MILEAGE 0 Sandra-LORETTA LAWRENCE PER CO EMS CO EMS STATUTE MILE AMB A0427 [facility] SERVICE 0 N-[place]ORETTA Flores-[place] ALS CO EMS CO EMS EMERGENCY TRANSPORT LEVEL 1 IAADIADOO 16992 [facility] VILLAVICENCIO 0 ENMA STREPTOCO PEDIATRIC CCUS S & INTER GROUP A INJECTION J1200 [facility] VILLAVICENCIO 0 ENMA DIPHENHYD PEDIATRIC RAMINE S & INTER HCL UP TO 50 MG IAADIADOO 60155 [facility] 0 AND STREPTOCO PEDIATRIC CCUS S & INTER GROUP A URNLS DIP 63774 [facility] VILLAVICENCIO 0 ENMA STICK/TAB PEDIATRIC LET RGNT S & INTER NON-AUTO W/O MICRSCP COMPREHEN 60906 [facility] J[facility] SIVE 0 AMERIC AMERIC METABOLIC HOLDING HOLDING PANEL ANTIBODY 68153 [facility] HELICOBAC [address] HOLDING HOLDING PYLORI BLOOD 69039 [facility] COUNT 0 AMERIC AMERIC COMPLETE HOLDING HOLDING AUTO&AUTO DIFRNTL WBC URINE 81231 [facility] VILLAVICENCIO 0 ENMA TEST PEDIATRIC VISUAL S & INTER COLOR CMPRSN METHS INJECTION J1885 [facility] VILLAVICENCIO 0 ENMA KETOROLAC PEDIATRIC S & INTER TROMETHAM INE PER 15 MG RADEX 01205 [place], SPINE 9 MEDICAL ALLY P LUMBOSACR IMAGING AL ASSOCIATE MINIM[place] [address] [place] [address] [place], CERVICAL 9 MEDICAL ALLY P SPINE W/O IMAGING CONTRAST ASSOCIATE MATERIAL S RADEX 17019 PUNEET PETER, SPINE 9 MEDICAL ALLY P CERVICAL IMAGING 6 OR MORE ASSOCIATE VIEWS S RADEX 25867 [facility] PETER, SPINE 9 MEDICAL ALLY P THORACIC IMAGING 3 VIEWS ASSOCIATE S 3D 85278 PUNEET PETER, RENDERING 9 MEDICAL ALLY P IMAGING W/INTERP& ASSOCIATE POSTPROC S DIFF WORK STATION 3D 09989 PUNEET PETER, RENDERING 9 MEDICAL ALLY P W/INTERP IMAGING & [place]OCI[place] [address] [facility] PETER, HEAD/BRAI 9 MEDICAL ALLY P N W/O IMAGING CONTRAST ASSOCIATE MATERIAL S AMBULANCE A0429 [facility] SERVICE 9 AMBULANCE AMBULANCE BLS SERVICE SERVICE EMERGENCY TRANSPORT GROUND A0425 [facility]ANCE AMBULANCE PER SERVICE SERVICE STATUTE MILE ELECTROEN 41919 [facility] CEPHALOGR 9 N N AM W/REC [facility] EEP MRI BRAIN 07144 [facility] [place] Trina SMITH BRAIN 9 RADIOLOGY T STEM W/O CONTRAST MATERIAL GROUND A0425 [facility] PER CO EMS CO EMS STATUTE MILE AMBULANCE A0429 [facility] SERVICE 9 N-[place] [facility]ENCE BLS CO EMS CO EMS EMERGENCY TRANSPORT RADIOLOGI 35069 [facility] [place] BOATENG EXAM 9 RADIOLOGY LEAH G CHEST 2 VIEWS FRONTAL&L ATERAL WRIST L3908 J & L J & L HAND 9 COMPOUNDI COMPOUNDI ORTHOSIS NG INC NG INC EXT CONTROL COCK-UP PREFAB IAADIADOO 29318 REYNOLD VILLAVICENCIO 9 ENMA INFLUENZA PEDIATRIC S & INTER CYTP C/V 95188 PATHOLOGY PATHOLOGY AUTO THIN 9 & & LYR CYTOLOGY CYTOLOGY PREPJ SCR LAB LAB MNL RESCR PHYS COLLECTIO 74916 REYNOLD VILLAVICENCIO N VENOUS 9 ENMA BLOOD PEDIATRIC VENIPUNCT S & INTER URE URNLS DIP 15033 BLUERACHEL VILLAVICENCIO 9 ENMA STICK/TAB PEDIATRIC LET RGNT S & INTER NON-AUTO W/[place] [address] LAB [facility] LAB J[facility]OB[facility] LIPASE 9 AMERIC [employer] [address] CT PELVIS 36133 [facility] 9 N N W/CONTRAS [facility] [place] [address] [facility] ABDOMEN 9 N N W/CONTRAS [facility] MATERIAL COMPREHEN 79092 LAB JACOBO LAB JACOBO SIVE 9 AMERIC AMERIC METABOLIC HOLDING HOLDING PANEL IADNA 69050 PATHOLOGY PATHOLOGY NEISSERIA 9 & & CYTOLOGY CYTOLOGY GONORRHOE LAB LAB [place] [address] [facility] OF LABONE OF THYROID 9 [facility] INC STIMULATI NG HORMONE TSH URINE 66747 [facility] VILLAVICENCIO 9 ENMA TEST PEDIATRIC VISUAL S & INTER COLOR CMPRSN METHS IADNA 92927 PATHOLOGY PATHOLOGY CHLAMYDIA 9 & & CYTOLOGY CYTOLOGY TRACHOMAT LAB LAB IS AMPLIFIED PROBE TQ BLOOD 12931 [facility] OF COUNT 9 [facility] COMPLETE AUTO&AUTO DIFRNTL WBC BLOOD 24371 [facility] COUNT 9 N N COMPLETE [facility] AUTO&AUTO [facility] DIFRNTL WBC GROUND A0425 [facility] MILEAGE 9 [facility] PER CO EMS CO EMS STATUTE MILE AMB A0427 [facility] SERVICE 9 [facility] EMS CO EMS EMERGENCY TRANSPORT LEVEL 1 COMPREHEN 49936 [facility] SIVE 9 N N METABOLIC [facility] URNLS DIP 10424 [facility] 9 N N STICK/TAB [facility] REAGENT AUTO MICROSCOP Y URINE 94238 [facility] 9 N N TEST [facility] COLOR CMPRSN METHS CULTURE 78178 [facility] BACTERIAL 9 N N [facility] VE COLONY COUNT URINE URINALYSI 23390 [facility] S 9 N N MICROSCOP [facility] HOSPITAL BLOOD 28955 [facility] COUNT 9 N N COMPLETE [facility] AUTO&AUTO HOSPITAL HOSPITAL DIFRNTL WBC AMBULANCE A0429 [facility] SERVICE 9 HOWARD MATTHEWS CO EMS CO EMS EMERGENCY TRANSPORT COLLECTIO 40605 [facility] N VENOUS 9 N N BLOOD [facility] URE GROUND A0425 [facility] MILEAGE 9 [facility] PER MI EMS CO EMS STATUTE MILE 4VHPV 47095 [facility] JR, VACCINE 3 9 [facility] DAO DOSE E CENTER SCHEDULE FOR IM USE TDAP 42633 [facility]IZON WILFREDO, VACCINE 7 9 [facility] COBY YRS/> IM E CENTER ANTOINETTE 91095 [facility]IZON WILFREDO, VACCINE 9 [facility] COBY LIVE FOR E CENTER SUBCUTANE OUS USE HEPB 93074 H[facility]IZON WILFREDO, VACCINE 9 [facility] COBY PED/ADOLE E CENTER SC 3 DOSE SCHEDULE IM MRI LOWER 59614 [facility] CECI BUCHANAN 9 RADIOLOGY GREGORIA M OTH/THN JT W/O CONTR MATRL AMB A0427 [facility] SERVICE 9 [facility] CO EMS CO EMS EMERGENCY TRANSPORT LEVEL 1 RADIOLOGI 51418 [facility] [place] ZAMORA 9 RADIOLOGY J EXAMINATI ON CHEST SINGLE VIEW FRONTAL GROUND A0425 [facility] [place] EMS CO EMS STATUTE MILE URINE 04336 ALISHA VILLALOBOS, 9 [facility] OCBY TEST E CENTER VISUAL COLOR CMPRSN METHS RADEX 95684 [facility] FOOT 9 N N COMPLETE [facility] MINIMUM 3 HOSPITAL HOSPITAL VIEWS MCV4 68092 H[facility]IZON WILFREDO, MENACWY 9 [facility] COBY CONJ VACC E CENTER GRPS ACYW-135 IM USE HEPB 81613 [facility] WILFREDO, VACCINE 9 [facility] COBY PED/ADOLE E CENTER SC 3 DOSE SCHEDULE IM 4VHPV 01823 [facility] WILFREDO, VACCINE 3 9 [facility] COBY DOSE E CENTER SCHEDULE FOR IM USE CROWN - D2752 [facility] [place] 9 [place] FUSED TO DENTAL [place] [address] [facility] [place] JOHANN, MAXILLOFA 9 RADIOLOGY J CIAL W/O CONTRAST MATERIAL INJECTION J3030 [facility] 9 N N SUMATRIPT [facility] SUCCINATE 6 MG BLOOD 61601 [facility]IZON WILFREDO, OCCULT 9 HEALTHCAR COBY PEROXIDAS E CENTER E ACTV QUAL FECES 1 DETER BLOOD 35616 [facility] COUNT 9 N N COMPLETE [facility] AUTO&AUTO [facility] DIFRNTL WBC PERIODONT D4910 [facility] AL [address] [facility] CARE URNLS DIP 23155 [facility] 9 N N STICK/TAB [facility] REAGENT AUTO MICROSCOP Y TOPICAL D1203 [facility] APPLICATI 9 [place] ON OF DENTAL DENTAL [place] [address] [facility] LIPASE 9 [place] [address] [facility] ABDOMEN 9 N N W/[facility] MATERIAL GONADOTRO 48133 [facility] PIN 9 N N [facility] QUALITATI VE BLOOD 03258 [facility] [place], OCCULT 9 CHAU MOHAMED H PEROXIDAS EMERGENCY E ACTV PHYS INC QUAL FECES 1-3 SPEC COMPREHEN 32861 [facility] SIVE 9 N N METABOLIC [facility] CT PELVIS 83560 [facility] [place] CARMEN, 9 RADIOLOGY RICARDA L W/CONTRAS T MATERIAL ANALGESIA D9230 [facility] 8 [place] ANXIOLYSI DENTAL DENTAL S CARE CARE INHALATIO N OF NITROUS OXIDE LOC DEL D4381 [facility] ANTIMICRO 8 [place] BL AGTS DENTAL DENTAL CREVICULR CARE CARE TISS TOOTH BR CROWN - D2752 [facility] PORCELAIN 8 [place]ARK [place]ARK FUSED TO DENTAL DENTAL BENTLEY CARE CARE METAL CORE D2950 [facility] BUILDUP 8 [place]ARK [place] INCLUDING DENTAL DENTAL ANY PINS CARE CARE DISTORT 68355 ROLY DUNHAM, PRODUCT 8 JOYCE Mena EVOKED OTOACOUST IC EMISNS LIMITD COMPRE 14345 ROLY DUNHAM, AUDIOMETR 8 JOYCE Mena Y THRESHOLD EVAL SP RECOGNIJ TYMPANOME 49662 ROLY DUNHAM, TRY 8 JOYCE Mena CYTP C/V 28775 PATHOLOGY PATHOLOGY AUTO THIN 8 & & LYR CYTOLOGY CYTOLOGY PREPJ SCR LAB LAB MNL RESCR PHYS IADNA 51384 PATHOLOGY PATHOLOGY CHLAMYDIA 8 & & CYTOLOGY CYTOLOGY TRACHOMAT LAB LAB IS AMPLIFIED PROBE TQ IADNA 24364 PATHOLOGY PATHOLOGY NEISSERIA 8 & & CYTOLOGY CYTOLOGY GONORRHOE LAB LAB AE AMPLIFIED PROBE TQ COMPREHEN 87183 [facility] SIVE 8 N N METABOLIC [facility] URNLS DIP 20843 [facility] 8 N N STICK/TAB [facility] LET [facility] NON-AUTO W/O MICRSCP CT PELVIS 71502 [facility] DEIDRA UYN, 8 RADIOLOGY MAGDALENA D W/CONTRAS T MATERIAL IV NFUS 04412 [facility] HYDRATION 8 N N EA HR [facility] [address] [facility] LIPASE 8 N N [facility] BLOOD 48778 [facility] COUNT 8 N N COMPLETE [facility] AUTO&AUTO [facility] [place] [address] [facility] ABDOMEN 8 N N W/CONTRAS [facility] MATERIAL GONADOTRO 76561 [facility] PIN 8 N N [facility] QUALITATI VE CUL BACT 19273 [facility] XCPT 8 N N URINE [facility] BLOOD/[facility] OL AEROBIC ISOL INCISION 59023 [facility] & 8 CHAU - YORBA, DRAINAGE EMERGENCY MIRTA ABSCESS PHYS INC M COMPLICAT ED/MULTIP LE SUSCEPTIB 01581 [facility] LTY STDY 8 N [facility]/AGA R DILUTJ GROUND A0425 [facility] MILEA 8 NJOHNATHON [facility]WRENCE PER CO EMS CO EMS STATUTE MILE RADIOLOGI 67575 [facility] [place] ZAMORA EXAM 8 RADIOLOGY J CHEST 2 VIEWS FRONTAL&L ATERAL AMB A0427 [facility] SERVICE 8 N-[place] [facility] ALS CO EMS CO EMS EMERGENCY TRANSPORT LEVEL 1 COLLECTIO 62608 [facility] N VENOUS 8 N N BLOOD [facility] URE URNLS DIP 24067 [facility] WILFREDO, 8 [facility]ALTH[facility] COBY STICK/TAB E CENTER LET RGNT AUTO W/O MICROSCOP Y URINE 71181 [facility] WILFREDO, 8 [facility] COBY TEST E CENTER VISUAL COLOR CMPRSN METHS GONADOTRO 87251 [facility] PIN 8 N N [facility] QUANTITAT JUDE GROUND A0425 [facility] PER [facility] EMS CO EMS STATUTE MILE AMB A0427 [facility] 8 [facility] ALS CO EMS CO EMS EMERGENCY TRANSPORT LEVEL 1 URINE 93291 [facility] JR, 8 [facility]ALTH[facility] DAO TEST E CENTER VISUAL COLOR CMPRSN METHS AMB A0427 [facility] 8 [facility] [place] EMS CO EMS [place] [address] [facility] DEIDRA FORBES, HEAD/BRAI 8 RADIOLOGY SHABANA N W/O CONTRAST MATERIAL RADIOLOGI 88771 [facility] [place] ZAMORA 8 RADIOLOGY J EXAMINATI ON FEMUR 2 VIEWS RADEX 70715 [facility] DEIDRA WILLS SPINE 8 RADIOLOGY J LUMBOSACR AL 2/3 VIEWS GROUND A0425 [facility] 8 N-[place]ORET[place] N-LORET[place] PER CO EMS CO EMS STATUTE MILE AMB A0427 [facility] 8 N-[place] N-[place] ALS CO EMS CO EMS EMERGENCY TRANSPORT LEVEL 1 GROUND A0425 [facility] 8 [place] [facility] EMS CO EMS STATUTE MILE AMB A0427 [facility] 8 [place] [facility] EMS CO EMS EMERGENCY TRANSPORT LEVEL 1 GROUND A0425 [facility] 8 [place] [address] [facility] Trina NUÑEZ HEAD/BRAI 8 RADIOLOGY T N W/O CONTRAST MATERIAL RADIOLOGI 43352 [facility] Trina NUÑEZ C 8 RADIOLOGY T EXAMINATI ON CHEST SINGLE VIEW FRONTAL AMB A0427 [facility] 8 [place] ALS [facility] EMS CO EMS EMERGENCY TRANSPORT LEVEL 1 GROUND A0425 [facility] 8 [place] PER [facility] EMS CO EMS STATUTE MILE Encounters Encounter Start End Date Code Location Performer Type Date HOSPITAL LINH - 6 6 [facility]PATIEN INC T [facility] LINH - 6 6 [facility] T OFFICE 57046 [facility] OUTPATIEN 6 6 PHYSICIAN [facility] T VISIT S GROUP 15 MINUTES HOSPITAL LINH - 6 6 [facility] INC T EMERGENCY 38640 [facility] 6 6 PHYSICIAN JOCE LOPEZ T VISIT HIGH/URGE NT SEVERITY INITIAL 13128 SOCORRO EDGAR PREVENTIV 6 6 TALA Matute MEDICINE NEW PT AGE 18-39YRS EMERGENCY 00863 RE[facility] CALL 6 6 PHYSICIAN JR ELZ [facility]PARTMEN [facility] T VISIT HIGH/URGE NT SEVERITY [facility]OSPITAL LINH - 6 6 [facility] T OFFICE 18438 [facility] AMBER TOD OUTPATIEN 5 5 PHYSICIAN T VISIT S GROUP 10 MINUTES OFFICE 04092 [facility] AMBER TOD OUTPATIEN 5 5 PHYSICIAN T NEW 30 S GROUP MINUTES HOSPITAL LINH - 5 5 [facility]IEN INC T OFFICE 08768 [facility] COYNE OUTPATIEN 5 5 [facility] T VISIT HOSPITAL 15 MINUTES EMERGENCY 04362 SANTANA SULLIVANU SANTANA SULLIVANU 5 5 DEPARTMEN T VISIT MODERATE SEVERITY EMERGENCY 04870 RHETT DIGGS 5 5 MAGDIEL [facility] T VISIT MODERATE SEVERITY OFFICE 13869 [facility] RHETT OUTPATIEN 5 5 PHYSICIAN MAGDIEL T VISIT S GROUP 15 MINUTES EMERGENCY 81579 [facility] E[facility] 5 5 [facility] T VISIT P MODERATE SEVERITY HOSPITAL LINH - 5 5 [facility] OUTPATI[facility] INC [facility]ERGENCY 25963 [facility] IMT VISIT EMERGENCY HIGH PHYS SEVERITY& THREAT FUNCJ OFFICE 21586 HOW[facility] NEAL 4 4 SHWETHA SHWETHA T VISIT 15 MINUTES OFFICE 70878 HOWARD NEAL 4 4 SHWETHA SHWETHA T NEW 30 MINUTES EMERGENCY 12027 [facility] 4 4 CHAU ROCHELLE DEPARTMEN EMERGENCY T VISIT PHYS HIGH/URGE NT SEVERITY EMERGENCY 28237 [facility] RHETT 4 4 CHAU MAGDIEL DEPARTMEN EMERGENCY T VISIT PHYS HIGH/URGE NT SEVERITY EMERGENCY 06477 [facility] ARMSTRONG 4 4 DEPARTMEN T VISIT HIGH/URGE NT SEVERITY HOSPITAL LINH Pond 4 4 [facility] OUTPATIEN INC HOSPITAL LINH - 4 4 [facility] OUTPATIEN [facility] OFFICE 64739 [facility] OUTPATI[facility] 4 4 [facility] [place] T VISIT 15 MINUTES OFFICE 08703 [facility] OUTPATIEN 4 4 [facility] [place] T NEW 30 MINUTES Emergency DIANA Diggs MD (ER) 3 02:06 3 02:[address] [facility] Emergency DIANA Escobar MD (ER) 3 14:27 3 15:27 [facility] OFFICE [address] [place] CONSULTAT 1 1 MEDICAL CASI ION SERV NEW/ESTAB FOUNDATIO PATIENT 60 MIN OFFICE 43905 REYNOLD VILLAVICENCIO OUTPATIEN 1 1 ENMA T VISIT PEDIATRIC 15 S & INTER MINUTES EMERGENCY 71926 RUBIA PRO 1 1 EMERGENCY HARIS DEPARTMEN SERVICES T VISIT HIGH/URGE NT SEVERITY OFFICE 62815 BLUERACHEL VILLAVICENCIO OUTPATIEN 1 1 ENMA T VISIT PEDIATRIC 15 S & INTER MINUTES OFFICE 68265 CLARK RODAS OUTPATIEN 1 1 YOUSIF YOUSIF T NEW 10 MINUTES EMERGENCY 87285 RUBIA MESSINA 1 1 EMERGENCY TAYLOR DEPARTMEN SERVICES T VISIT HIGH/URGE NT SEVERITY [facility] [place] [address] 1 N [facility] 40055 [facility] TOPHERODELL OUTPATIEN 1 1 AND T VISIT PEDIATRIC 15 S & INTER MINUTES OFFICE 98634 [facility] VILLAVICENCIO OUTPATIEN 0 0 ENMA T VISIT PEDIATRIC 15 S & INTER MINUTES OFFICE 94094 [facility] VILLAVICENCIO OUTPATIEN 0 0 ENMA T VISIT PEDIATRIC 15 S & INTER MINUTES EMERGENCY 23806 RUBIA CELLAROSI DEPT 0 0 EMERGENCY - YORBA VISIT SERVICES PAT HIGH SEVERITY& [facility] [place] - 0 0 N OUTPATIEN COMMUNITY T HOSPITA OFFICE 72422 [facility] OUTPATIEN 0 0 ENMA T VISIT PEDIATRIC 15 S & INTER MINUTES OFFICE 02844 [facility] OUTPATIEN 0 0 AND T VISIT PEDIATRIC 15 S & INTER MINUTES OFFICE 62377 [facility] OUTPATIEN 0 0 AND T VISIT PEDIATRIC 15 S & INTER MINUTES OFFICE 26691 [facility] OUTPATIEN 0 0 ENMA T VISIT PEDIATRIC 15 S & INTER MINUTES [facility] 888[facility] 0 [facility] LANIER [facility] - 0 0 N OUTPATIEN [facility] HOS[facility] OFFICE 46635 [facility] OUTPATIEN 0 0 ENMA T VISIT PEDIATRIC 25 S & INTER MINUTES OFFICE 31064 [facility] OUTPATIEN 0 0 AND T VISIT PEDIATRIC 15 S & INTER MINUTES OFFICE 02846 [facility] OUTPATIEN 0 0 ENMA T VISIT PEDIATRIC 15 S & INTER MINUTES OFFICE 64948 [facility] OUTPATIEN 0 0 ENMA T VISIT PEDIATRIC 25 S & INTER MINUTES OFFICE 28427 [facility] OUTPATIEN 0 0 AND T VISIT PEDIATRIC 15 S & INTER MINUTES OFFICE 22326 [facility] OUTPATIEN 0 0 ENMA T VISIT PEDIATRIC 15 S & INTER MINUTES OFFICE 35525 [facility] OUTPATIEN 0 0 ENMA T VISIT PEDIATRIC 15 S & INTER MINUTES [facility] - 9 9 N [facility] HOSPITAL OFFICE 09609 [facility] VILLAVICENCIO OUTPATIEN 9 9 ENMA T VISIT PEDIATRIC 15 S & INTER MINUTES OFFICE 09506 [facility] 9 9 ENMA T VISIT PEDIATRIC 15 S & INTER MINUTES OFFICE 90385 [facility]ILLAV[facility] 9 9 ENMA T VISIT PEDIATRIC 25 S & INTER MINUTES [facility] - 9 9 N [facility] HOSPITAL OFFICE 40255 [facility] JR, CONSULTAT 9 9 N FRANCY L ION OBSTETRIC NEW/ESTAB S AND PATIENT GYNECOLOG 40 MIN Y OFFICE 01141 REYNOLD VILLAVICENCIO [facility] 9 9 ENMA T NEW 45 PEDIATRIC MINUTES S & INTER EMERGENCY 64530 RUBIA DOYLE 9 9 EMERGENCY - [facility] SERVICES MIRTA T VISIT M MODERATE ASSOCIATE SEVERITY S [facility] - 9 9 N [facility] HOSPITAL EMERGENCY 67481 [facility] 9 9 N [facility] T VISIT HOSPITAL LOW/MODER SEVERITY EMERGENCY 06830 [facility] 9 9 N [facility] T VISIT HOSPITAL MODERATE SEVERITY [facility] - 9 9 N [facility] HOSPITAL EMERGENCY 92839 RUBIA PENA, 9 9 EMERGENCY [facility] SERVICES T VISIT HIGH/URGE ASSOCIATE NT S SEVERITY OFFICE 28211 ALISHA NORRIS [facility] 9 9 [facility] DA[facility] T VISIT E CENTER 10 MINUTES EMERGENCY 53759 RUBIA DOYLE 9 9 [facility] M[facility] T VISIT M HIGH/URGE ASSOCIATE NT S SEVERITY OFFICE 39354 [facility] T VISIT E CENTER 15 MINUTES OFFICE 08107 ÁNGEL [place] 9 9 [place] JARRET Treviño T VISIT ORTHOPAED 15 ICS [facility] MINUTES [facility] - 9 9 N [facility] HOSPITAL OFFICE 36130 [facility] MEL[facility] 9 [place] JARRET Treviño ION ORTHOPAED NEW/ESTAB ICS PLC PATIENT 60 MIN [facility] - 9 9 N [facility] PER[facility]OD[facility] 67168 [facility] COBY E MED EST E CENTER PATIENT 12-17YRS EMERGENCY 15478 [facility] [place], 9 9 [facility] WILLIAM Khan DEPARTMEN EMERGENCY T VISIT PHYS INC MODERATE SEVERITY [facility] - 9 9 N [facility] EMERGENC[facility] 45839 [facility] [place], 9 9 [facility]ISIT PHYS INC HIGH/URGE NT SEVERITY OFFICE 92127 [facility] 9 9 [facility] W T VISIT E CENTER 15 MINUTES EMERGENCY 91659 [facility] CELLAR[facility] 9 9 [facility] EMERGENCY MIRTA T VISIT PHYS INC M MODERATE SEVERITY OFFICE 20241 [facility] 9 9 [facility] COBY T VISIT E CENTER 15 MINUTES [facility] - 9 9 N [facility] EMERGENCY 99754 [facility] ESTHER, 9 9 [facility] JEAN MARIE Bronson DEPARTMEN EMERGENCY T VISIT PHYS INC HIGH/URGE NT SEVERITY EMERGENCY 34996 [facility] ESTHER, DEPT 9 9 [facility] Bronson VISIT EMERGENCY HIGH PHYS INC SEVERITY& THREAT FUNCJ OFFICE 96377 ROLY DUNHAM, CONSULTAT 8 8 JOYCE Mena ION NEW/ESTAB PATIENT 40 MIN OFFICE 46331 JAMES RAMIREZ, TAMIKAAT 8 8 RAMONE Treviño ION NEW/ESTAB PATIENT 40 MIN OFFICE 50389 [facility] JR, OUTPATIEN 8 8 [facility] DAO T VISIT E CENTER 15 MINUTES [facility] - 8 8 N [facility] EM[facility] 08728 [facility] DE[facility] 8 8 CH[facility] - JULIOA, VISIT EMERGENCY MIRTA HIGH PHYS INC M SEVERITY& THREAT FUNCJ EMERGENCY 91971 [facility] 8 8 N [facility] T VISIT HOSPITAL HIGH/URGE NT SEVERITY EMERGENCY 66351 [facility] 8 8 N [facility] VISIT HOSPITAL LOW/MODER SEVERITY EMERGENCY 99731 [facility] 8 8 N [facility] VISIT HOSPITAL MODERATE SEVERITY [facility]PITAL [facility] - 8 8 N [facility] HOSPITAL EMERGENCY 53408 [facility] BRITANY[facility] DEPT 8 8 CH[facility] ROSEMARIE VISIT EMERGENCY A HIGH PHYS INC SEVERITY& THREAT FUNCJ EMERGENCY 73128 [facility] 8 8 CH[facility] - AVIVA, [facility] EMERGENCY MIRTA T VISIT PHYS INC M MODERATE SEVERITY [facility]PITAL [facility] - 8 8 N [facility]OSPITAL OFFICE 62315 [facility] WILFREDO, [facility] 8 8 [facility] T VISIT E CENTER 15 MINUTES OFFICE 61004 [facility] JR, OUTPATIEN 8 8 [facility] T VISIT E CENTER 15 MINUTES OFFICE 45125 H[facility]IZON SOWDEN, [facility] 8 8 [facility] CHAVO T VISIT E CENTER 10 MINUTES [facility] - 8 8 N [facility] HOSPITAL EMERGENCY 96085 [facility] JEAN, DEPT 8 8 CHAU MICHAEL VISIT EMERGENCY HIGH PHYS INC SEVERITY& THREAT FUNCJ EMERGENCY 81235 [facility] 8 8 N [facility] T VISIT HOSPITAL MODERATE SEVERITY EMERGENCY 62078 [facility] [place], 8 8 [facility] VISIT PHYS INC HIGH/URGE NT SEVERITY EMERGENCY 79375 [facility] [place] DEPT 8 8 [facility] Khan VISIT EMERGENCY HIGH PHYS INC SEVERITY& THREAT FUNCJ EMERGENCY 83760 [facility] [place] GARGT 8 8 CH[facility] [place] VISIT EMERGENCY A HIGH PHYS INC SEVERITY& THREAT FUNCJ
--- OUTSIDE RECORDS SUMMARY | 2017-01-18 18:24 | External Medical Summary Rpt ---
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 J[facility]OBO LAB JACOBO SIVE 9 AMERIC AMERIC METABOLIC HOLDING HOLDING PANEL IADNA 55695 PATHOLOGY PATHOLOGY NEISSERIA 9 & & CYTOLOGY CYTOLOGY GONORRHOE LAB LAB [place] [address] [facility] OF LABONE OF THYROID 9 [facility] STIMULATI NG HORMONE TSH URINE 67581 [facility] VILLAVICENCIO 9 ENMA TEST PEDIATRIC VISUAL S & INTER COLOR CMPRSN METHS IADNA 24468 PATHOLOGY PATHOLOGY CHLAMYDIA 9 & & CYTOLOGY CYTOLOGY TRACHOMAT LAB LAB IS AMPLIFIED PROBE TQ BLOOD 05087 [facility] COUNT 9 [facility] COMPLETE AUTO&AUTO DIFRNTL WBC BLOOD 39110 [facility] COUNT 9 N N COMPLETE [facility] AUTO&AUTO [facility] DIFRNTL WBC GROUND A0425 [facility] MILEAGE 9 HOWARD LAWRENCE PER CO EMS CO EMS STATUTE MILE AMB A0427 [facility] SERVICE 9 HOWARD LAWRENCE ALS CO EMS CO EMS EMERGENCY TRANSPORT LEVEL 1 COMPREHEN 56923 [facility] SIVE 9 N N METABOLIC [facility] URNLS DIP 25249 [facility] 9 N N STICK/TAB [facility] REAGENT AUTO MICROSCOP Y URINE 45877 [facility] 9 N N TEST [facility] COLOR CMPRSN METHS CULTURE 09573 [facility] BACTERIAL 9 N N [facility] COLONY COUNT URINE URINALYSI 02964 [facility] S 9 N N MICROSCOP [facility] IC ONLY HOSPITAL HOSPITAL BLOOD 23399 [facility] COUNT 9 N N COMPLETE [facility] AUTO&AUTO HOSPITAL HOSPITAL DIFRNTL WBC AMBULANCE A0429 [facility] SERVICE 9 HOWARD MATTHEWS CO EMS CO EMS EMERGENCY TRANSPORT COLLECTIO 20646 [facility] N VENOUS 9 N N BLOOD [facility] URE GROUND A0425 [facility] MILEAGE 9 HOWARD LAWRENCE PER SC EMS CO EMS STATUTE MILE 4VHPV 16964 H[facility]IZ[facility] JR, VACCINE 3 9 [facility]ALTH[facility] DAO DOSE E CENTER SCHEDULE FOR IM USE TDAP 59989 HORIZON WILFREDO, VACCINE 7 9 HEALTHCAR COBY YRS/> IM E CENTER ANTOINETTE 73402 H[facility]IZON WILFREDO, VACCINE 9 [facility]ALTH[facility] COBY LIVE FOR E CENTER SUBCUTANE OUS USE HEPB 12202 H[facility]IZON WILFREDO, VACCINE 9 [facility]ALTH[facility] COBY PED/ADOLE E CENTER SC 3 DOSE SCHEDULE IM MRI LOWER 82343 [facility] CECI BUCHANAN 9 RADIOLOGY GREGORIA M OTH/THN JT W/O CONTR MATRL AMB A0427 [facility] SERVICE 9 HOWARD LAWRENCE ALS CO EMS CO EMS EMERGENCY TRANSPORT LEVEL 1 RADIOLOGI 59329 [facility] [place] ZAMORA 9 RADIOLOGY J EXAMINATI ON CHEST SINGLE VIEW FRONTAL GROUND A0425 [facility] 9 HOWARD LAWRENCE PER SC EMS CO EMS STATUTE MILE URINE 11818 ALISHA VILLALOBOS, 9 HEALTHCAR COBY TEST E CENTER VISUAL COLOR CMPRSN METHS RADEX 15872 [facility] FOOT 9 N N COMPLETE [facility] MINIMUM 3 HOSPITAL HOSPITAL VIEWS MCV4 00346 HORIZON WILFREDO, MENACWY 9 [facility]ALTHCAR COBY CONJ VACC E CENTER GRPS ACYW-135 IM USE HEPB 12647 H[facility]IZON WILFREDO, VACCINE 9 HEALTHCAR COBY PED/ADOLE E CENTER SC 3 DOSE SCHEDULE IM 4VHPV 30582 H[facility]IZON WILFREDO, VACCINE 3 9 [facility]ALTHCAR COBY DOSE E CENTER SCHEDULE FOR IM USE CROWN - D2752 [facility] [place] 9 [place] FUSED TO DENTAL [place] [address] [place] JOHANN, MAXILLOFA 9 RADIOLOGY J CIAL W/O CONTRAST MATERIAL INJECTION J3030 [facility] 9 N N [facility] H[facility]PITAL SUCCINATE 6 MG BLOOD 21226 H[facility]IZON WILFREDO, OCCULT 9 HEALTHCAR COBY PEROXIDAS E CENTER E ACTV QUAL FECES 1 DETER BLOOD 63880 [facility] COUNT 9 N N COMPLETE [facility] AUTO&AUTO [facility] HOSPITAL DIFRNTL WBC [place] D4910 [facility] AL 9 [facility] CARE URNLS DIP 08241 [facility] 9 N N STICK/TAB [facility] REAGENT AUTO MICROSCOP Y TOPICAL D1203 [facility] APPLICATI 9 [place] ON OF DENTAL DENTAL [place] [address] [facility] LIPASE 9 N N [facility] [place] [address] [facility] ABDOMEN 9 N N W/[facility] MATERIAL GONADOTRO 89676 [facility] PIN 9 N N [facility] QUALITATI VE BLOOD 16572 [facility] [place], OCCULT 9 HCAU MOHAMED H PEROXIDAS EMERGENCY E ACTV PHYS INC QUAL FECES 1-3 SPEC COMPREHEN 28222 [facility] SIVE 9 N N METABOLIC [facility] CT PELVIS 17223 [place] [place] CARMEN, 9 RADIOLOGY RICARDA L W/CONTRAS T MATERIAL ANALGESIA D9230 [facility] 8 [place] ANXIOLYSI DENTAL DENTAL S CARE CARE INHALATIO N OF NITROUS OXIDE LOC DEL D4381 [facility] ANTIMICRO 8 [place] BL AGTS DENTAL DENTAL CREVICULR CARE CARE TISS TOOTH BR CROWN - D2752 [facility] [place] 8 [place]ARK [place] FUSED TO DENTAL DENTAL BENTLEY CARE CARE METAL CORE D2950 [facility] BUILDUP 8 PARK [place] INCLUDING DENTAL DENTAL ANY PINS CARE CARE DISTORT 59274 ROLY DUNHAM, PRODUCT 8 JOYCE Mena EVOKED OTOACOUST IC EMISNS LIMITD COMPRE 56504 ROLY DUNHAM, AUDIOMETR 8 JOYCE Mena Y THRESHOLD EVAL SP RECOGNIJ TYMPANOME 87565 ROLY DUNHAM, TRY 8 JOYCE Mena CYTP C/V 87362 PATHOLOGY PATHOLOGY AUTO THIN 8 & & LYR CYTOLOGY CYTOLOGY PREPJ SCR LAB LAB MNL RESCR PHYS IADNA 77093 PATHOLOGY PATHOLOGY CHLAMYDIA 8 & & CYTOLOGY CYTOLOGY TRACHOMAT LAB LAB IS AMPLIFIED PROBE TQ IADNA 69350 PATHOLOGY PATHOLOGY NEISSERIA 8 & & CYTOLOGY CYTOLOGY GONORRHOE LAB LAB AE AMPLIFIED PROBE TQ COMPREHEN 01004 [facility] SIVE 8 N N METABOLIC [facility] URNLS DIP 53740 [facility] 8 N N STICK/TAB [facility] NON-AUTO W/O MICRSCP CT PELVIS 78001 [facility] DEIDRA YUN, 8 RADIOLOGY MAGDALENA D W/CONTRAS T MATERIAL IV NFUS 44907 [facility] HYDRATION 8 N N EA HR [facility] [place] [address] [facility] LIPASE 8 N N [facility] BLOOD 05420 [facility] COUNT 8 N N COMPLETE [facility] AUTO&AUTO [facility] [place] [address] [facility] ABDOMEN 8 N N W/CONTRAS [facility] MATERIAL GONADOTRO 49050 [facility] PIN 8 N N [facility] QUALITATI VE CUL BACT 93275 [facility] XCPT 8 N N URINE [facility] BLOOD/[facility] OL AEROBIC ISOL INCISION 79072 [facility] & 8 CHAU - YORBA, DRAINAGE EMERGENCY MIRTA ABSCESS PHYS INC M COMPLICAT ED/MULTIP LE SUSCEPTIB 69716 [facility] LTY STDY 8 N N [facility] MICRO/AGA R DILUTJ GROUND A0425 [facility] MILEA 8 NJOHNATHON LAWRENCE PER CO EMS CO EMS STATUTE MILE RADIOLOGI 35715 [facility] [place] ZAMORA EXAM 8 RADIOLOGY J CHEST 2 VIEWS FRONTAL&L ATERAL AMB A0427 [facility] SERVICE 8 N-LORETTA LAWRENCE ALS CO EMS CO EMS EMERGENCY TRANSPORT LEVEL 1 COLLECTIO 77519 [facility] N VENOUS 8 N N BLOOD [facility] URE URNLS DIP 85144 HORIZON WILFREDO, 8 HEALTHCAR COBY STICK/TAB E CENTER LET RGNT AUTO W/O MICROSCOP Y URINE 91973 H[facility]IZON WILFREDO, 8 HEALTHCAR COBY TEST E CENTER VISUAL COLOR CMPRSN METHS GONADOTRO 28223 [facility] PIN 8 N N [facility] QUANTITAT JUDE GROUND A0425 [facility] 8 HOWARD LAWRENCE PER SC EMS CO EMS STATUTE MILE AMB A0427 [facility] 8 HOWARD LAWRENCE ALS CO EMS CO EMS EMERGENCY TRANSPORT LEVEL 1 URINE 51475 HORIZ[facility] JR, 8 HEALTHCAR DAO TEST E CENTER VISUAL COLOR CMPRSN METHS AMB A0427 [facility] 8 HOWARD LAWRENCE ALS SC EMS CO EMS [place] [address] [facility] DEIDRA FORBES, HEAD/BRAI 8 RADIOLOGY SHABANA N W/O CONTRAST MATERIAL RADIOLOGI 38944 [facility] [place] ZAMORA 8 RADIOLOGY J EXAMINATI ON FEMUR 2 VIEWS RADEX 47006 [facility] DEIDRA WILLS SPINE 8 RADIOLOGY J LUMBOSACR AL 2/3 VIEWS GROUND A0425 [facility] 8 N-LORETTA N-LORETTA PER CO EMS CO EMS STATUTE MILE AMB A0427 [facility] 8 N-LORETTA N-LORETTA ALS CO EMS CO EMS EMERGENCY TRANSPORT LEVEL 1 GROUND A0425 [facility] 8 N-LORETTA N-LORETTA PER CO EMS CO EMS STATUTE MILE AMB A0427 [facility] 8 N-LORETTA N-LORETTA ALS CO EMS CO EMS EMERGENCY TRANSPORT LEVEL 1 GROUND A0425 [facility] 8 N-LORETTA N-[place]ORET[place] [address] [facility] Trina NUÑEZ HEAD/BRAI 8 RADIOLOGY T N W/O CONTRAST MATERIAL RADIOLOGI 38032 [facility] Trina NUÑEZ C 8 RADIOLOGY T EXAMINATI ON CHEST SINGLE VIEW FRONTAL AMB A0427 [facility] 8 N-LORETTA N-LORETTA ALS CO EMS CO EMS EMERGENCY TRANSPORT LEVEL 1 GROUND A0425 [facility] 8 N-LORETTA N-LORETTA PER CO EMS CO EMS STATUTE MILE Encounters Encounter Start End Date Code Location Performer Type Date HOSPITAL LINH - 6 6 [facility] OUTPATIEN INC T [facility] LINH - 6 6 [facility] OUTPATIEN INC T OFFICE 29021 [facility] OUTPATIEN 6 6 PHYSICIAN [facility] T VISIT S GROUP 15 MINUTES HOSPITAL LINH - 6 6 [facility] OUTPATIEN INC T EMERGENCY 50099 REID SANTANA [facility] 6 6 PHYSICIAN JOCE LOPEZ T VISIT HIGH/URGE NT SEVERITY INITIAL 54329 SOCORRO EDGAR PREVENTIV 6 6 TALA Matute MEDICINE NEW PT AGE 18-39YRS EMERGENCY 78716 REID CALL 6 6 PHYSICIAN JR ELZ DEPARTMEN S, PLLC T VISIT HIGH/URGE NT SEVERITY HOSPITAL LINH - 6 6 [facility] OUTPATIEN INC T OFFICE 91008 [facility] AMBER TOD OUTPATIEN 5 5 PHYSICIAN T VISIT S GROUP 10 MINUTES OFFICE 45594 [facility] AMBER TOD OUTPATIEN 5 5 PHYSICIAN T NEW 30 S GROUP MINUTES HOSPITAL LINH - 5 5 [facility] OUTPATIEN INC T OFFICE 40092 LIN[facility] COYNE OUTPATIEN 5 5 [facility] T VISIT HOSPITAL 15 MINUTES EMERGENCY 94706 SANTANA SULILVANU SANTANA SULLIVANU 5 5 DEPARTMEN T VISIT MODERATE SEVERITY EMERGENCY 56354 RHETT DIGGS 5 5 [facility]DIEL [facility] T VISIT MODERATE SEVERITY OFFICE 47889 [facility] RHETT OUTPATIEN 5 5 PHYSICIAN MAGDIEL T VISIT S GROUP 15 MINUTES EMERGENCY 08875 [facility] [place] 5 5 [facility] T VISIT P MODERATE SEVERITY HOSPITAL LINH - 5 5 [facility] OUT[facility] INC EMERGENCY 46133 [facility] CHAU IMT VISIT EMERGENCY HIGH PHYS SEVERITY& THREAT FUNCJ OFFICE 91123 HOWARD NEAL 4 4 SHWETHA SHWETHA T VISIT 15 MINUTES OFFICE 00388 HOWARD NEAL 4 4 SHWETHA SHWETHA T NEW 30 MINUTES EMERGENCY 27780 [facility] MATHUR 4 4 CHAU ROCEHLLE DEPARTMEN EMERGENCY T VISIT PHYS HIGH/URGE NT SEVERITY EMERGENCY 25894 [facility] RHETT 4 4 CHAU MAGDIEL DEPARTMEN EMERGENCY T VISIT PHYS HIGH/URGE NT SEVERITY EMERGENCY 38254 [facility] ARMSTRONG 4 4 DEPARTMEN T VISIT HIGH/URGE NT SEVERITY HOSPITAL LINH Pond 4 4 [facility] OUTPATIEN INC HOSPITAL LINH - 4 4 [facility] OFFICE 68777 SAUD VILLAVICENCIO OUTPATIEN 4 4 ENMAJuju [place] T VISIT 15 MINUTES OFFICE 89987 [facility] VILLAVICENCIO OUTPATIEN 4 4 ENMAJuju [place] T NEW 30 MINUTES Emergency DIANA Diggs MD (ER) 3 02:06 3 02:26 [facility] Emergency DIANA Escobar MD (ER) 3 14:27 3 15:27 [facility] OFFICE [address] [place] CONSULTAT 1 1 MEDICAL CASI ION SERV NEW/ESTAB FOUNDATIO PATIENT 60 MIN OFFICE 52064 REYNOLD VILLAVICENCIO OUTPATIEN 1 1 ENMA T VISIT PEDIATRIC 15 S & INTER MINUTES EMERGENCY 65421 RUBIA PRO 1 1 EMERGENCY HARIS DEPARTMEN SERVICES T VISIT HIGH/URGE NT SEVERITY OFFICE 89130 BLUERACHEL VILLAVICENCIO OUTPATIEN 1 1 ENMA T VISIT PEDIATRIC 15 S & INTER MINUTES OFFICE 28158 [facility] OUTPATIEN 1 1 YOUSIF YOUSIF T NEW 10 MINUTES EMERGENCY 07536 RUBIA MESSINA 1 1 EMERGENCY TAYLOR DEPARTMEN SERVICES T VISIT HIGH/URGE NT SEVERITY [facility] [place] [address] 1 N OUTPATIEN COMMUNITY T [facility] OFFICE 29945 [facility] TOPHERODELL OUTPATIEN 1 1 AND T VISIT PEDIATRIC 15 S & INTER MINUTES OFFICE 25970 [facility] VILLAVICENCIO OUTPATIEN 0 0 ENMA T VISIT PEDIATRIC 15 S & INTER MINUTES OFFICE 39870 [facility] VILLAVICENCIO OUTPATIEN 0 0 ENMA T VISIT PEDIATRIC 15 S & INTER MINUTES EMERGENCY 61181 RUBIA CELLAROSI DEPT 0 0 EMERGENCY - YORBA VISIT SERVICES PAT HIGH SEVERITY& THREAT [facility] [place] [place] - 0 0 N OUTPATIEN COMMUNITY T HOSPITA OFFICE 22692 [facility] VILLAVICENCIO OUTPATIEN 0 0 ENMA T VISIT PEDIATRIC 15 S & INTER MINUTES OFFICE 83227 [facility] BALBAUGH OUTPATIEN 0 0 AND T VISIT PEDIATRIC 15 S & INTER MINUTES OFFICE 95321 [facility] BALBAUGH OUTPATIEN 0 0 AND T VISIT PEDIATRIC 15 S & INTER MINUTES OFFICE 41352 [facility] VILLAVICENCIO OUTPATIEN 0 0 ENMA T VISIT PEDIATRIC 15 S & INTER MINUTES HOSPITAL [facility] 16785 [facility] 0 0 N [facility] - 0 0 N OUTPATIEN [facility] T HOSPITA OFFICE 33482 [facility] VILLAVICENCIO OUTPATIEN 0 0 ENMA T VISIT PEDIATRIC 25 S & INTER MINUTES OFFICE 58072 [facility] FREEDOMAUGH OUTPATIEN 0 0 AND T VISIT PEDIATRIC 15 S & INTER MINUTES OFFICE 07318 [facility] VILLAVICENCIO OUTPATIEN 0 0 ENMA T VISIT PEDIATRIC 15 S & INTER MINUTES OFFICE 51047 [facility] VILLAVICENCIO OUTPATIEN 0 0 ENMA T VISIT PEDIATRIC 25 S & INTER MINUTES OFFICE 71037 [facility] BALBAUGH OUTPATIEN 0 0 AND T VISIT PEDIATRIC 15 S & INTER MINUTES OFFICE 68265 [facility] VILLAVICENCIO OUTPATIEN 0 0 ENMA T VISIT PEDIATRIC 15 S & INTER MINUTES OFFICE 31135 [facility] VILLAVICENCIO OUTPATIEN 0 0 ENMA T VISIT PEDIATRIC 15 S & INTER MINUTES HOSPITAL [facility] - 9 9 N [facility] OFFICE 46335 REYNOLD VILLAVICENCIO OUTPATIEN 9 9 ENMA T VISIT PEDIATRIC 15 S & INTER MINUTES OFFICE 54997 REYNOLD [facility]IO [facility] ENMA T VISIT PEDIATRIC 15 S & INTER MINUTES OFFICE 29118 REYNOLD [facility]ILLAVICENCIO [facility] 9 ENMA T VISIT PEDIATRIC 25 S & INTER MINUTES HOSPITAL [facility] - 9 9 N [facility] OFF[facility] 83[address] [facility] JR, CONSULTAT 9 9 N FRANCY L ION OBSTETRIC NEW/ESTAB S AND PATIENT GYNECOLOG 40 MIN Y OFFICE 00592 REYNOLD VILLAVICENCIO [facility] 9 9 ENMA T NEW 45 PEDIATRIC MINUTES S & INTER EMERGENCY 91731 RUBIA DOYLE 9 9 EMERGENCY - [facility] SERVICES MIRTA T VISIT M MODERATE ASSOCIATE SEVERITY S HOSPITAL [facility] - 9 9 N [facility] EMERGENCY 64202 [facility] 9 9 N [facility] T VISIT HOSPITAL LOW/MODER SEVERITY EMERGENCY 98177 [facility] 9 9 N [facility] T VISIT HOSPITAL MODERATE SEVERITY HOSPITAL [facility] - 9 9 N [facility] EMERGENCY 07744 RUBIA PENA, 9 9 EMERGENCY [facility] SERVICES T VISIT HIGH/URGE ASSOCIATE NT S SEVERITY OFFICE 70393 ALISHA NOR[facility]IS [facility] 9 [facility] DAO T VISIT E CENTER 10 MINUTES EMERGENCY 69499 RUBIA DOYLE 9 9 [facility] MIRTA T VISIT M HIGH/URGE ASSOCIATE NT S SEVERITY OFFICE 38315 ALISHA VILLALOBOS [facility] 9 9 [facility]ALTH[facility] COBY T VISIT E CENTER 15 MINUTES OFFICE 06836 ÁNGEL [place] 9 9 [place] JARRET Treviño T VISIT ORTHOPAED 15 [employer] MINUTES HOSPITAL [facility] - 9 9 N [facility] OFFICE 02118 [place] MEL, [facility] 9 9 [place] JARRET Treviño ION ORTHOPAED NEW/ESTAB [employer] [facility] PATIENT 60 MIN HOSPITAL [facility] - 9 9 N [facility] PERIODIC 60819 [facility] COBY E MED EST E CENTER PATIENT 12-17YRS EMERGENCY 75088 [facility] KUL[facility], 9 9 CHAU WILLIAM Khan DEPARTMEN EMERGENCY T VISIT PHYS INC MODERATE SEVERITY HOSPITAL [facility] - 9 9 N [facility] EM[facility]GENC[facility] 10625 [facility] K[facility], 9 9 [facility]AU [facility] T VISIT PHYS INC HIGH/URGE NT SEVERITY OFFICE 25456 [facility] 9 9 [facility] KATLYN W T VISIT E CENTER 15 MINUTES EMERGENCY 53702 [facility] CELLARO 9 9 CHAU [facility] EMERGENCY MIRTA T VISIT PHYS INC M MODERATE SEVERITY OFFICE 55558 [facility] 9 9 [facility] COBY T VISIT E CENTER 15 MINUTES HOSPITAL [facility] - 9 9 N [facility] 87829 [facility] ESTHER, 9 9 CHAU JEAN MARIE Bronson DEPARTMEN EMERGENCY T VISIT PHYS INC HIGH/URGE NT SEVERITY EMERGENCY 66841 [facility], DEPT 9 9 [facility] Bronson VISIT EMERGENCY HIGH PHYS INC SEVERITY& THREAT FUNCJ OFFICE [id number] ROLY DUNHAM, CONSULTAT 8 8 JOYCE Mena ION NEW/ESTAB PATIENT 40 MIN OFFICE [id number] JAMES RAMIREZ, TAMIKAAT 8 8 RAMONE Treviño ION NEW/ESTAB PATIENT 40 MIN OFFICE 29914 [facility] JR, OUTPATIEN 8 8 [facility] DAO T VISIT E CENTER 15 MINUTES HOSPITAL [facility] - 8 8 N [facility] EM[facility]GENC[facility] 54276 [facility] DEPT 8 8 CH[facility] - JULIOA, VISIT EMERGENCY MIRTA HIGH PHYS INC M SEVERITY& THREAT FUNCJ EMERGENCY 66020 [facility] 8 8 N [facility] T VISIT HOSPITAL HIGH/URGE NT SEVERITY EMERGENCY 01032 [facility] 8 8 N [facility] VISIT HOSPITAL LOW/MODER SEVERITY EMERGENCY 18345 [facility] 8 8 N [facility] VISIT HOSPITAL MODERATE SEVERITY HOSPITAL [facility] - 8 8 N [facility] EMERGENCY 45953 [facility] BRITANY, DEPT 8 8 [facility] ROSEMARIE VISIT EMERGENCY A HIGH PHYS INC SEVERITY& THREAT FUNCJ EMERGENCY 50301 [facility] 8 8 CH[facility] - AVIVA, [facility] EMERGENCY MIRTA T VISIT PHYS INC M MODERATE SEVERITY HOSPITAL [facility] - 8 8 N [facility] OFFICE 62399 [facility] T V[facility] E CENTER 15 MINUTES OFFICE 25089 [facility] JR, OUTPATIEN 8 8 [facility] DAO T VISIT E CENTER 15 MINUTES OFFICE 19705 [facility] SOWDEN[facility] CHAVO T VISIT E CENTER 10 MINUTES HOSPITAL [facility] - 8 8 N [facility] EMERGENCY 24426 [facility] JEAN, DEPT 8 8 [facility] MICHAEL VISIT EMERGENCY HIGH PHYS INC SEVERITY& THREAT FUNCJ EMERGENCY 06858 [facility] 8 8 N [facility] COMMUNITY T VISIT HOSPITAL MODERATE SEVERITY EMERGENCY 75578 [facility] KULDEEP, 8 8 [facility]YS INC HIGH/URGE NT SEVERITY EMERGENCY 90550 [facility] KULDEEP DEPT 8 8 [facility] Khan VISIT EMERGENCY HIGH PHYS INC SEVERITY& THREAT FUNCJ EMERGENCY 14006 [facility] [place] GARGT 8 8 [facility] [place] VISIT EMERGENCY A HIGH PHYS INC SEVERITY& THREAT FUNCJ
--- OUTSIDE RECORDS SUMMARY | 2017-01-18 18:34 | External Medical Summary Rpt ---
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 STICK/TAB HOLDINGS HOLDINGS LET REAGENT AUTO MICROSCOP Y BASIC 15013 [facility] METABOLIC 4 NELLIE NELLIE PANEL [place] [address] CH[facility] CHRIS ABDOMEN & 4 AMBER AMBER PELVIS W/O CONTRAST [facility] [address] [place] DISCHARGE 1 MEDICAL CASI DAY SERV MANAGEMEN FOUNDATIO T 30 MIN/< LOCALIZE 66360 [place] CEREBRAL 1 MEDICAL CASI SEIZURE SERV CABLE/RAD FOUNDATIO IO EEG/VIDEO INITIAL 86073 [facility] 1 MEDICAL CASI CARE/DAY SERV 30 FOUNDATIO MINUTES AMB A0427 [facility] SERVICE 1 [facility] ALS CO EMS CO EMS EMERGENCY TRANSPORT LEVEL 1 GROUND A0425 [facility] PER CO EMS CO EMS STATUTE MILE IAAADOO 13079 BLUERACHEL VILLAVICNECIO 1 ENMA STREPTOCO PEDIATRIC CCUS S & INTER GROUP A DEEP D9220 [facility] SEDATION/ 1 YOUSIF YOUSIF GENERAL ANESTHESI A-1ST 30 MINUTES THER 17814 [facility] PROPH/DX 1 YOUSIF YOUSIF NJX IV PUSH SINGLE/1S T SBST/DRUG ORTHOPANT 55192 [facility] OGRAM 1 YOUSIF YOUSIF RADEX 11531 [facility] [place] BRICE MAT ABDOMEN 1 1 RADIOLOGY ANTEROPOS TERIOR VIEW URINE 52801 [facility] 1 AND TEST PEDIATRIC VISUAL S & INTER COLOR CMPRSN METHS URNLS DIP 56559 [facility] 1 AND STICK/TAB PEDIATRIC LET RGNT S & INTER NON-AUTO [place] [address] [facility] STREPTOCO 0 N N CCUS [facility] H[facility]PITA HOSPITA CUL BACT 71866 [facility] XCPT 0 N N URINE COMMUNITY COMMUNITY BLOOD/STO HOSPITA HOSPITA OL AEROBIC ISOL RADEX 14371 [facility] [place] BRICE MAT ANKLE 0 RADIOLOGY COMPLETE MINIMUM 3 VIEWS RADEX 35780 [facility] [place] BRICE MAT FOOT 0 RADIOLOGY COMPLETE MINIMUM 3 VIEWS CUL BACT 27625 [facility] XCPT 0 AMERIC AMERIC URINE HOLDING HOLDING BLOOD/STO OL AEROBIC ISOL INCISION 73365 [facility] & 0 AND DRAINAGE PEDIATRIC ABSCESS S & INTER SIMPLE/SI NGLE GROUND A0425 [facility] 0 [facility] PER CO EMS CO EMS STATUTE MILE AMB A0427 [facility] SERVICE 0 [facility] CO EMS CO EMS EMERGENCY TRANSPORT LEVEL 1 IAADIADO 70676 BLUERACHEL VILLAVICENCIO 0 ENMA STREPTOCO PEDIATRIC CCUS S & INTER GROUP A INJECTION 03-12-201 J1200 [facility] VILLAVICENCIO 0 ENMA DIPHENHYD PEDIATRIC RAMINE S & INTER HCL UP TO 50 MG IAADIADOO 95054 [facility] 0 AND STREPTOCO PEDIATRIC CCUS S & INTER GROUP A BLOOD 53687 [facility] COUNT 0 AMERIC AMERIC COMPLETE HOLDING HOLDING AUTO&AUTO DIFRNTL WBC ANTIBODY 41044 [facility] HELICOBAC [address] HOLDING HOLDING PYLORI COMPREHEN 09723 [facility] SIVE 0 AMERIC AMERIC METABOLIC HOLDING HOLDING PANEL URINE 36257 [facility] VILLAVICENCIO 0 ENMA TEST PEDIATRIC VISUAL S & INTER COLOR CMPRSN METHS URNLS DIP 14940 [facility] VILLAVICENCIO 0 ENMA STICK/TAB PEDIATRIC LET RGNT S & INTER NON-AUTO W/O MICRSCP INJECTION J1885 [facility] VILLAVICENCIO 0 ENMA KETOROLAC PEDIATRIC S & INTER TROMETHAM IN[place] [address] [place] [address] [place], CERVICAL 9 MEDICAL ALLY P SPINE W/O IMAGING CONTRAST ASSOCIATE MATERIAL S RADEX 17327 [place], SPINE 9 MEDICAL ALLY P LUMBOSACR IMAGING AL ASSOCIATE MINIMUM 4 S VIEWS 3D 35698 [place], RENDERING 9 MEDICAL ALLY P IMAGING W/INTERP& ASSOCIATE POSTPROC S DIFF WORK STATION RADEX 11359 [place], SPINE 9 MEDICAL ALLY P THORACIC IMAGING [address] [place] [address] [place], HEAD/BRAI 9 MEDICAL ALLY P N W/O IMAGING CONTRAST ASSOCIATE MATERIAL S RADEX 75746 [place], SPINE 9 MEDICAL ALLY P CERVICAL IMAGING 6 OR MORE ASSOCIATE VIEWS S 3D 89471 [place], RENDERING 9 MEDICAL ALLY P W/INTERP IMAGING & ASSOCIATE POSTPROCE S SS SUPERVISI ON GROUND A0425 [facility] AMBULANCE PER SERVICE SERVICE STATUTE MILE AMBULANCE A0429 [facility] SERVICE 9 AMBULANCE AMBULANCE BLS SERVICE SERVICE EMERGENCY TRANSPORT MRI BRAIN 31679 [facility] BRAIN 9 N N STEM W/O [facility] MATERIAL ELECTROEN 11160 [facility] CEPHALOGR 9 N N AM W/REC [facility] EEP AMBULANCE A0429 [facility] SERVICE 9 [facility] BLBrody CO EMS CO EMS EMERGENCY TRANSPORT GROUND A0425 [facility] MILEAGE 9 [facility] PER CO EMS CO EMS STATUTE MILE RADIOLOGI 13523 [facility] [place] [facility]DR[facility], C EXAM 9 RADIOLOGY LEAH G CHEST 2 VIEWS FRONTAL&L ATERAL WRIST L3908 J & L J & L HAND 9 COMPOUNDI COMPOUNDI ORTHOSIS NG INC NG INC EXT CONTROL COCK-UP PREFAB IAADIADOO 78070 [facility] VILLAVICENCIO 9 ENMA INFLUENZA PEDIATRIC S & INTER URNLS DIP 80064 [facility] VILLAVICENCIO 9 ENMA STICK/TAB PEDIATRIC LET RGNT S & INTER NON-AUTO W/O MICRSCP COLLECTIO 42702 [facility] VILL[facility]ENC[facility] N VENOUS 9 ENMA BLOOD PEDIATRIC VENIPUNCT S & INTER URE URINE 09783 [facility] VILLAVICENCIO 9 ENMA TEST PEDIATRIC VISUAL S & [place] [address] [facility] ABDOMEN 9 N N W/[place] [address] [facility] LIPASE 9 AMERIC AMERIC HOLDING HOLDING BLOOD 36278 [facility] OF COUNT 9 [facility] COMPLETE AUTO&AUTO DIFRNTL WBC CYTP C/V 52842 PATHOLOGY PATHOLOGY AUTO THIN 9 & & LYR CYTOLOGY CYTOLOGY PREPJ SCR LAB LAB MNL RESCR PHYS IADNA 15612 PATHOLOGY PATHOLOGY NEISSERIA 9 & & CYTOLOGY CYTOLOGY GONORRHOE LAB LAB [place] [address] [facility] OF THYROID 9 [facility] INC STIMULATI NG HORMONE TSH CT PELVIS 85497 [facility] 9 N N [facility] MATERIAL COMPREHEN 66242 [facility] JACOBO SIVE 9 AMERIC AMERIC METABOLIC HOLDING HOLDING PANEL IADNA 69345 PATHOLOGY PATHOLOGY CHLAMYDIA 9 & & CYTOLOGY CYTOLOGY TRACHOMAT LAB LAB IS AMPLIFIED PROBE TQ AMB A0427 [facility] SERVICE 9 Sandra-[place] [facility] ALS CO EMS CO EMS EMERGENCY TRANSPORT LEVEL 1 BLOOD 23235 [facility] COUNT 9 N N COMPLETE [facility] AUTO&AUTO [facility] DIFRNTL WBC GROUND A0425 [facility] MILEAGE 9 N-[place] [facility]WRENCE PER CO EMS CO EMS STATUTE MILE URNLS DIP 25392 [facility] 9 N N STICK/TAB [facility] REAGENT AUTO MICROSCOP Y BLOOD 45451 [facility] COUNT 9 N N COMPLETE [facility] AUTO&AUTO [facility] DIFRNTL WBC URINALYSI 92056 [facility] S 9 N N MICROSCOP [facility] IC [facility] CULTURE 70409 [facility] BACTERIAL 9 N N [facility] COLON[facility] COUNT URINE URINE 41496 [facility] 9 N N TEST [facility] COLOR CMPRSN METHS COMPREHEN 05329 [facility] SIVE 9 N N [facility] COLLECTIO 20469 [facility] N VENOUS 9 N N [facility]LOOD [facility] URE AMBULANCE A0429 [facility] 9 N-L[facility] LAWRENCE BLS CO EMS CO EMS EMERGENCY TRANSPORT GROUND A0425 [facility] MILEAGE 9 Sandra-LOR[facility] LAWRENCE PER CO EMS CO EMS STATUTE MILE 4VHPV 06034 H[facility]IZ[facility] JR, VACCINE 3 9 [facility] DAO DOSE E CENTER SCHEDULE FOR IM USE TDAP 26554 [facility] WILFREDO, VACCINE 7 9 [facility]ALTH[facility] COBY YRS/> IM E CENTER ANTOINETTE 66765 [facility] WILFREDO, VACCINE 9 [facility] COBY LIVE FOR E CENTER SUBCUTANE OUS USE HEPB 16765 [facility] WILFREDO, VACCINE 9 [facility] COBY PED/ADOLE E CENTER SC 3 DOSE SCHEDULE IM MRI LOWER 51187 [facility] EXTREM 9 N N OTH/THN [facility] JT W/O [facility] CONTR MATRL GROUND A0425 [facility] MILEAGE 9 [facility] PER CO EMS CO EMS STATUTE MILE RADIOLOGI 29088 [facility] [place] ZAMORA 9 RADIOLOGY J EXAMINATI ON CHEST SINGLE VIEW FRONTAL AMB A0427 [facility] SERVICE 9 [facility] CO EMS CO EMS EMERGENCY TRANSPORT LEVEL 1 MCV4 07062 H[facility]IZON WILFREDO, MENACWY 9 [facility] COBY CONJ VACC E CENTER GRPS [id number] IM USE URINE 71404 [facility] WILFREDO, 9 [facility]ALTH[facility] COBY TEST E CENTER VISUAL COLOR CMPRSN METHS HEPB 94690 [facility] WILFREDO, VACCINE 9 [facility]ALTHCAR COBY PED/ADOLE E CENTER SC 3 DOSE SCHEDULE IM RADEX 76244 [facility] Trina NUÑEZ FOOT 9 RADIOLOGY T COMPLETE MINIMUM 3 VIEWS 4VHPV 23692 [facility] WILFREDO, VACCINE 3 9 [facility]ALTH[facility] COBY DOSE E CENTER SCHEDULE FOR IM USE CROWN - D2752 [facility] [place] 9 [facility] FUSED TO DENTAL [place] [address] [facility] DEIDRA WILLS, MAXILLOFA 9 RADIOLOGY J CIAL W/O CONTRAST MATERIAL INJECTION J3030 [facility] 9 N N [facility] SUCCINATE 6 MG BLOOD 24566 ALISHA VILLALOBOS OCCULT 9 [facility]ALTH[facility] COBY PEROXIDAS E CENTER E ACTV QUAL FECES 1 DETER GONADOTRO 32597 [facility] PIN 9 N N CHORIONIC [facility] QUALITATI VE BLOOD 31668 [facility] COUNT 9 N N COMPLETE [facility] AUTO&AUTO HOSPITAL HOSPITAL DIFRNTL WBC URNLS DIP 33804 [facility] 9 N N STICK/TAB [facility] REAGENT AUTO MICROSCOP Y BLOOD 36406 [facility] OCCULT 9 N N PEROXIDAS [facility] E [facility] QUAL FECES 1-3 SPEC TOPICAL D1203 [facility] APPLICATI 9 [place] ON OF DENTAL DENTAL [place] [address] [facility] LIPASE 9 [place] [facility] [address] [facility] [place] MORALES, ABDOMEN 9 RADIOLOGY RICARDA L W/CONTRAS T MATERIAL COMPREHEN 27023 [facility] SIVE 9 N N METAB[facility] CT PELVIS 92194 [facility] 9 N N W/CONTRAS [facility] MATERIAL PERIODONT D4910 [facility] AL 9 [place] MAINTENAN DENTAL DENTAL CE CARE CARE ANALGESIA D9230 [facility] 8 [place] ANXIOLYSI DENTAL DENTAL S CARE CARE INHALATIO N OF NITROUS OXIDE LOC DEL D4381 [facility] ANTIMICRO 8 PARK PARK BL AGTS DENTAL DENTAL CREVICULR CARE CARE TISS TOOTH BR CORE D2950 [facility] BUILDUP 8 [place] INCLUDING DENTAL DENTAL ANY PINS CARE CARE CROWN - D2752 [facility] PORCELAIN 8 [place] FUSED TO DENTAL DENTAL [facility]ARE CARE METAL TYMPANOME 68281 ROLY DUNHAM, TRY 8 JOYCE Mena COMPRE 11955 ROLY DUNHAM, AUDIOMETR 8 JOYCE Mena Y THRESHOLD EVAL SP RECOGNIJ DISTORT 59544 ROLY DUNHAM, PRODUCT 8 JOYCE Mena EVOKED OTOACOUST IC EMISNS LIMITD CYTP C/V 66150 PATHOLOGY PATHOLOGY AUTO THIN 8 & & LYR CYTOLOGY CYTOLOGY PREPJ SCR LAB LAB MNL RESCR PHYS IADNA 76465 PATHOLOGY PATHOLOGY NEISSERIA 8 & & CYTOLOGY CYTOLOGY GONORRHOE LAB LAB AE AMPLIFIED PROBE TQ IADNA 21865 PATHOLOGY PATHOLOGY CHLAMYDIA 8 & & CYTOLOGY CYTOLOGY TRACHOMAT LAB [place] [address] [facility] LIPASE 8 N N [facility] URNLS DIP 37146 [facility] 8 N N STICK/TAB [facility] NON-AUTO W/O MICRSCP CT PELVIS 54047 [facility] 8 N N W/CONTRAS [facility] MATERIAL COMPREHEN 46889 [facility] SIVE 8 N N METABOLIC [facility] IV NFUS 63569 [facility] HYDRATION 8 N N [place] [facility] [place] [address] [facility] ABDOMEN 8 N N W/CONTRAS [facility] MATERIAL BLOOD 06283 [facility] COUNT 8 N N COMPLETE [facility] AUTO&AUTO [facility] DIFRNTL WBC GONADOTRO 48482 [facility] PIN 8 N N CHORIONIC [facility] QUALITATI VE SUSCEPTIB 65346 [facility] LTY STDY 8 N N ANTIMICRB [facility] MICRO/AGA R DILUTJ INCISION 99673 [facility] CELLAROSI & 8 CHAU - YORBA, DRAINAGE EMERGENCY MIRTA ABSCESS PHYS INC M COMPLICAT ED/MULTIP LE CUL BACT 35233 [facility] XCPT 8 N N URINE [facility] OL AEROBIC ISOL AMB A0427 [facility] SERVICE 8 [facility] CO EMS CO EMS EMERGENCY TRANSPORT LEVEL 1 RADIOLOGI 06865 [facility] [place] ZAMORA EXAM 8 RADIOLOGY J CHEST 2 VIEWS FRONTAL&L ATERAL GROUND A0425 [facility] MILEAGE 8 [facility] PER CO EMS CO EMS STATUTE MILE URINE 02690 [facility] WILFREDO, 8 [facility]ALTHCAR COBY TEST E CENTER VISUAL COLOR CMPRSN METHS COLLECTIO 76893 [facility] N VENOUS [address] [facility] URE URNLS DIP 02052 [facility] WILFREDO, 8 HEALTHCAR COBY STICK/TAB E CENTER LET RGNT AUTO W/O MICROSCOP Y GONADOTRO 82525 [facility] PIN 8 N N [facility] QUANTITAT JUDE AMB A0427 [facility] 8 Sandra-[facility] ALS CO EMS CO EMS EMERGENCY TRANSPORT LEVEL 1 GROUND A0425 [facility] MILEAGE 8 [facility] PER CO EMS CO EMS STATUTE MILE URINE 98200 HORIZON JR, 8 HEALTHCAR DAO TEST E CENTER VISUAL COLOR CMPRSN METHS AMB A0427 [facility] 8 [facility] ALS CO EMS CO EMS [place] [address] [facility] HEAD/BRAI 8 N N N W/O [facility] MATERIAL RADEX 28713 [facility] SPINE 8 N N LUMBOSACR [facility] 2/3 [facility] VIEWS RADIOLOGI 76386 [facility] C 8 N N EXAMINATI [facility] ON [facility] 2 VIEWS GROUND A0425 [facility] PER CO EMS CO EMS STATUTE MILE GROUND A0425 [facility] 8 [facility] PER CO EMS CO EMS STATUTE MILE AMB A0427 [facility] 8 [facility] ALS CO EMS CO EMS EMERGENCY TRANSPORT LEVEL 1 AMB A0427 [facility] 8 Sandra-[facility]WR[facility] ALS CO EMS CO EMS EMERGENCY TRANSPORT LEVEL 1 GROUND A0425 [facility] 8 [facility] PER CO EMS CO EMS STATUTE MILE RADIOLOGI 03687 [facility] Trina NUÑEZ 8 RADIOLOGY T EXAMINATI [place] [address] [facility] [place] Trina SMITH HEAD/BRAI 8 RADIOLOGY T N W/O CONTRAST MATERIAL AMB A0427 [facility] SERVICE 8 [facility] CO EMS CO EMS EMERGENCY TRANSPORT LEVEL 1 GROUND A0425 [facility] MILEA 8 [facility] PER CO EMS CO EMS STATUTE MILE Encounters Encounter Start End Date Code Location Performer Type Date HOSPITAL LINH - 6 6 [facility] OUTPATIEN INC T HOSPITAL LINH - 6 6 [facility] OUTPATIEN [facility] T OFFICE 00582 [facility] OUTPATIEN 6 6 PHYSICIAN MAGDIEL T VISIT S GROUP 15 MINUTES EMERGENCY 70404 LIN[facility] 6 6 [facility] DEPARTMEN INC T VISIT HIGH/URGE NT SEVERITY HOSPITAL LINH - 6 6 [facility] OUTPATIEN INC T INITIAL 19162 SOCORRO EDGAR PREVENTIV 6 6 TALA ECHEVERRIA SIENNA MEDICINE NEW PT AGE 18-39YRS [facility] LINH - 6 6 [facility] OUTPATIEN INC T EMERGENCY 34224 REID CALL, 6 6 PHYSICIAN JR HUGHES DEPARTMEN S, [facility] T VISIT HIGH/URGE NT SEVERITY OFFICE 06988 [facility] AMBER TOD OUTPATIEN 5 5 PHYSICIAN T VISIT S GROUP 10 MINUTES OFFICE 30509 [facility] AMBER TOD OUTPATIEN 5 5 PHYSICIAN T NEW 30 S GROUP MINUTES HOSPITAL LINH - 5 5 MEM HOS[facility] OUTPATIEN INC T OFFICE 00377 [facility] OUTPATIEN 5 5 [facility] T VISIT HOSPITAL 15 MINUTES EMERGENCY 54781 SANTANA SULLIVANU SANTANA SULLIVANU 5 5 DEPARTMEN T VISIT MODERATE SEVERITY EMERGENCY 68008 RHETT DELANEY 5 5 MAGDIEL MAGDIEL DEPARTMEN T VISIT MODERATE SEVERITY OFFICE 98521 [facility] RHETT OUTPATIEN 5 5 PHYSICIAN MAGDIEL T VISIT S GROUP 15 MINUTES HOSPITAL LINH Pond 5 5 [facility] OUTPATIEN INC T EMERGENCY 55901 [facility] [place] 5 5 [facility] T VISIT P MODERATE SEVERITY EMERGENCY [address] [facility] 4 4 CHAU IMT VISIT EMERGENCY HIGH PHYS SEVERITY& THREAT FUNCJ OFFICE 27044 [facility] OUTPATIEN 4 4 SHWETHA SHWETHA T VISIT 15 MINUTES OFFICE 54684 [facility] OUTPATIEN 4 4 SHWETHA SHWETHA T NEW 30 MINUTES EMERGENCY 44750 [facility] 4 4 CHAU ROCHELLE DEPARTMEN EMERGENCY T VISIT PHYS HIGH/URGE NT SEVERITY EMERGENCY [address] [facility] 4 4 CHAU MAGDIEL [facility] EMERGENCY T VISIT PHYS HIGH/URGE NT SEVERITY EMERGENCY 03104 [facility] 4 4 DEPARTMEN T VISIT HIGH/URGE NT SEVERITY HOSPITAL LINH - 4 4 [facility] OUTPATIEN INC T HOSPITAL LINH - 4 4 [facility] OUTPATIEN INC T OFFICE 23530 V[facility]AVICENCIO VILLAVICENCIO OUTPATIEN 4 4 ENMA ENMA T VISIT 15 MINUTES OFFICE 24052 SAUD VILLAVICENCIO OUTPATIEN 4 4 ENMA ENMA T NEW 30 MINUTES OFFICE 11660 [place] [facility] [facility] 1 1 MEDICAL CASI ION SERV NEW/ESTAB FOUNDATIO PATIENT 60 MIN OFFICE 02219 [facility] OUTPATIEN 1 1 ENMA T VISIT PEDIATRIC 15 S & INTER MINUTES EMERGENCY 71183 RUBIA PRO 1 1 [facility] T [facility]ISIT HIGH/URGE NT SEVERITY OFFICE 45475 [facility] VILLAVICENCIO OUTPATIEN 1 1 ENMA T VISIT PEDIATRIC 15 S & INTER MINUTES OFFICE 76262 [facility] R[facility] OUTPATIEN 1 1 YOUSIF YOUSIF T NEW 10 MINUTES EMERGENCY 34938 RUBIA MESSINA 1 1 EMERGENCY [facility] DEPARTMEN SERVICES T VISIT HIGH/URGE NT [facility] 95460 REYNOLD ELISE OUTPATIEN 1 1 AND T VISIT PEDIATRIC 15 S & INTER MINUTES OFFICE 03636 [facility] VILL[facility]ICENCIO OUTPATIEN 0 0 ENMA T VISIT PEDIATRIC 15 S & INTER MINUTES OFFICE 49539 [facility] VILLAVICENCIO OUTPATIEN 0 0 ENMA T VISIT PEDIATRIC 15 S & INTER MINUTES EMERGENCY 59437 RUBIA CELLAROSI DEPT 0 0 EMERGENCY - YORBA VISIT SERVICES PAT HIGH SEVERITY& [facility] 34535 [facility] VILLAVICENCIO OUTPATIEN 0 0 ENMA T VISIT PEDIATRIC 15 S & INTER MINUTES OFFICE 57039 [place] ARIK OUTPATIEN 0 0 AND T VISIT PEDIATRIC 15 S & INTER MINUTES OFFICE 93267 [place] ARIK OUTPATIEN 0 0 AND T VISIT PEDIATRIC 15 S & INTER MINUTES OFFICE 28477 [facility] VILLAVICENCIO OUTPATIEN 0 0 ENMA T VISIT PEDIATRIC 15 S & INTER MINUTES EMERGENCY 51607 RUBIA ARNOLD 0 0 EMERGENCY [facility] DEPARTMEN SERVICES T [facility]ISIT [facility] - 0 0 N OUTPATIST. [facility] 10832 [facility] VILLAVICENCIO OUTPATIEN 0 0 ENMA T VISIT PEDIATRIC 25 S & INTER MINUTES OFFICE 70973 [facility] BALBAUGH OUTPATIEN 0 0 AND T VISIT PEDIATRIC 15 S & INTER MINUTES OFFICE 93734 [facility] OUTPATIEN 0 0 ENMA T VISIT PEDIATRIC 15 S & INTER MINUTES OFFICE 08926 [facility] OUTPATIEN 0 0 ENMA T VISIT PEDIATRIC 25 S & INTER MINUTES OFFICE 91446 [facility] BALBAUGH OUTPATIEN 0 0 AND T VISIT PEDIATRIC 15 S & INTER MINUTES OFFICE 99870 [facility] VILLAVICENCIO OUTPATIEN 0 0 ENMA T VISIT PEDIATRIC 15 S & INTER MINUTES OFFICE 55449 [facility]ILLAVIC[facility] OUTPATIEN 0 0 ENMA T VISIT PEDIATRIC 15 S & INTER MINUTES [facility] - 9 9 N [facility] 06533 [facility]ILLAVICENC[facility] OUTPATIEN 9 9 ENMA T VISIT PEDIATRIC 15 S & INTER MINUTES OFFICE 29430 [facility]ILLAVICENCIO OUTPATIEN 9 9 ENMA T VISIT PEDIATRIC 15 S & INTER MINUTES OFFICE 62757 [facility] OUTPATIEN 9 9 ENMA T VISIT PEDIATRIC 25 S & INTER MINUTES [facility] - 9 9 N [facility] 35280 [facility], CONSULTAT 9 9 N FRANCY L ION OBSTETRIC NEW/ESTAB S AND PATIENT GYNECOLOG 40 MIN Y OFFICE 78359 [facility] OUTPATIEN 9 9 ENMA T NEW 45 PEDIATRIC MINUTES S & INTER EMERGENCY 93991 [facility] 9 9 N [facility] VISIT HOSPITAL LOW/MODER SEVERITY [facility] EMERGENCY 02093 RUBIA CELLAROSI 9 9 EMERGENCY - YOR[facility], [facility] MIRTA T VISIT M MODERATE ASSOCIATE SEVERITY S EMERGENCY 53853 RUBIA PENA, 9 9 [facility]IS[facility] HIGH/URGE ASSOCIATE NT S SEVERITY EMERGENCY 91061 [facility] 9 9 N [facility] VISIT HOSP[facility] MODERATE [facility]VERITY [facility] - 9 9 N [facility] OFFICE 09011 [facility] JR [facility] 9 9 [facility] DAO T VISIT E CENTER 10 MINUTES EMERGENCY 67639 RUBIA HOLLANDSI 9 9 EMERGENCY - YORBA, [facility] MIRTA T VISIT M HIGH/URGE ASSOCIATE NT S SEVERITY OFFICE 34762 ALISHA VILLALOBOS [facility] 9 9 [facility] COBY T VISIT E CENTER 15 MINUTES OFFICE 43940 OPHELIA ÁNGEL LEAL 9 9 [place] JARRET Treviño T VISIT ORTHOPAED 15 [facility] MINUTES [facility]OSP[facility] - 9 9 N [facility] OFFICE 50113 OPHELIA MEL [facility] 9 9 [place] JARRET Treviño ION ORTHOPAED NEW/ESTAB [facility] PATIENT 60 MIN [facility] - 9 9 N [facility] PERIODIC 58702 ALISHA VILLALOBOS PREVENT[facility] 9 9 [facility]ALTH[facility] COBY E MED EST E CENTER PATIENT [id number] EMERGENCY 36957 SUSHMA LIGHT, 9 9 CHAU Khan DEPARTMEN EMERGENCY T VISIT PHYS INC MODERATE SEVERITY EMERGENCY 43043 SUSHMA LIGHT, 9 9 CHAU Khan DEPARTMEN EMERGENCY T VISIT PHYS INC HIGH/URGE NT SEVERITY [facility] - 9 9 N [facility] OFFICE 75396 ALISHA MARCANO [facility] 9 9 [facility]ALTHCAR [place]AT[place] W T VISIT E CENTER [address]ES [address] [facility] 9 9 CHAU - YORBA, [facility] EMERGENCY MIRTA T VISIT PHYS INC M MODERATE SEVERITY OFFICE [id number] [facility], [facility] 9 9 [facility] COBY T VISIT E CENTER 15 MINUTES EMERGENCY 63937 [facility] 9 9 N [facility] T VISIT HOSPITAL HIGH/URGE NT SEVERITY HOSPITAL [facility] - 9 9 N [facility] EMERGENCY 22481 [facility] JOSÉ MIGUEL, DEPT 9 9 [facility] JEAN MARIE H VISIT EMERGENCY HIGH PHYS INC SEVERITY& THREAT FUNCJ OFFICE 32062 ROLY DUNHAM, CONSULTAT 8 8 JOYCE Mena ION NEW/ESTAB PATIENT 40 MIN OFFICE [id number] JAMES RAMIREZ CONSULTAT 8 8 RAMONE Treviño ION NEW/ESTAB PATIENT 40 MIN OFFICE 35262 [facility] JR [facility] 8 8 [facility] 15 MINUTES [facility] - 8 8 N [facility] EMERGENCY 50244 [facility] DEPT 8 8 CHAU - KELLYRBA, VISIT EMERGENCY MIRTA HIGH PHYS INC M SEVERITY& THREAT FUNCJ EMERGENCY 68491 [facility] 8 8 N [facility] T VISIT HOSPITAL HIGH/URGE NT SEVERITY EMERGENCY 69681 [facility] 8 8 CHAU - YORBA, [facility] EMERGENCY MIRTA T VISIT PHYS INC M MODERATE SEVERITY HOSPITAL [facility] - 8 8 N [facility] EMERGENCY 17691 [facility] 8 8 N [facility] VISIT HOSPITAL LOW/MODER SEVERITY EMERGENCY 08250 [facility] 8 8 [facility] ROSEMARIE VISIT EMERGENCY A HIGH PHYS INC SEVERITY& THREAT FUNCJ EMERGENCY 46354 [facility] MIRTA T VISIT PHYS INC M MODERATE SEVERITY OFFICE 38200 [facility] WILFREDO, [facility] 8 8 [facility] CO[facility] T VISIT E CENTER 15 MINUTES HOSPITAL [facility] - 8 8 N [facility] OFFICE 25718 HORIZON JR, [facility] 8 8 [facility] DAO T VISIT E CENTER 15 MINUTES OFFICE 08653 [facility] ELLEN, [facility] 8 8 [facility] CHAVO T VISIT E CENTER 10 MINUTES EMERGENCY 54959 [facility] 8 8 N [facility] T VISIT HOSPITAL MODERATE SEVERITY EMERGENCY 13404 [facility] [place] P[facility]AT 8 8 CHAU MICHAEL VISIT EMERGENCY HIGH PHYS INC SEVERITY& THREAT FUNJ HOSPITAL [facility] - 8 8 N [facility] EMERGENCY 61720 [facility] KULDEEP, 8 8 CHAU Khan [facility] EMERGENCY T VISIT PHYS INC HIGH/URGE NT SEVERITY EMERGENCY 86752 [facility] [place] 8 8 CHAU Khan VISIT EMERGENCY HIGH PHYS INC SEVERITY& THREAT FUNCJ EMERGENCY 77441 [facility] [place] GARGT 8 8 CHAU HOU[place]ON VISIT EMERGENCY A HIGH PHYS INC SEVERITY& THREAT FUNCJ
--- OUTSIDE RECORDS SUMMARY | 2017-01-18 18:34 | External Medical Summary Rpt ---
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 Sandra-LORETTA LAWRENCE ALS CO EMS CO EMS EMERGENCY TRANSPORT LEVEL 1 BLOOD 55206 [facility] COUNT 9 N N COMPLETE [facility] AUTO&AUTO [facility] DIFRNTL WBC GROUND A0425 [facility] MILEAGE 9 N-LORETTA LAWRENCE PER CO EMS CO EMS STATUTE MILE URNLS DIP 64940 [facility] 9 N N STICK/TAB [facility] REAGENT AUTO MICROSCOP Y BLOOD 14840 [facility] COUNT 9 N N COMPLETE [facility] AUTO&AUTO [facility] DIFRNTL WBC URINALYSI 43291 [facility] S 9 N N MICROSCOP [facility] IC [facility] CULTURE 05112 [facility] BACTERIAL 9 N N [facility] COUNT URINE URINE 70207 [facility] 9 N N TEST [facility] COLOR CMPRSN METHS COMPREHEN 07513 [facility] SIVE 9 N N [facility] COLLECTIO 44851 [facility] N VENOUS 9 N N BLOOD [facility] URE [facility] A0429 [facility] 9 N-LORETTA LAWRENCE BLS CO EMS CO EMS EMERGENCY TRANSPORT GROUND A0425 [facility] MILEAGE 9 Sandra-LORETTA LAWRENCE PER CO EMS CO EMS STATUTE MILE 4VHPV 94386 [facility] JR, VACCINE 3 9 [facility] DAO DOSE E CENTER SCHEDULE FOR IM USE TDAP 92940 [facility] WILFREDO, VACCINE 7 9 [facility]ALTH[facility] COBY YRS/> IM E CENTER ANTOINETTE 01243 [facility] WILFREDO, VACCINE 9 [facility] COBY LIVE FOR E CENTER SUBCUTANE OUS USE HEPB 97677 [facility] WILFREDO, VACCINE 9 [facility]ALTH[facility] COBY PED/ADOLE E CENTER SC 3 DOSE SCHEDULE IM MRI LOWER 09953 [facility] EXTREM 9 N N OTH/THN [facility] JT W/O [facility] CONTR MATRL GROUND A0425 [facility] MILEAGE 9 HOWARD LAWRENCE PER CO EMS CO EMS STATUTE MILE RADIOLOGI 48682 [facility] [place] ZAMORA 9 RADIOLOGY J EXAMINATI ON CHEST SINGLE VIEW FRONTAL AMB A0427 [facility] SERVICE 9 HOWARD LAWRENCE ALS CO EMS CO EMS EMERGENCY TRANSPORT LEVEL 1 MCV4 16817 [facility] WILFREDO, MENACWY 9 [facility] COBY CONJ VACC E CENTER GRPS [id number] IM USE URINE 25445 [facility] WILFREDO, 9 [facility] COBY TEST E CENTER VISUAL COLOR CMPRSN METHS HEPB 04789 [facility] WILFREDO, VACCINE 9 [facility] COBY PED/ADOLE E CENTER SC 3 DOSE SCHEDULE IM RADEX 79847 [facility] Trina NUÑEZ FOOT 9 RADIOLOGY T COMPLETE MINIMUM 3 VIEWS 4VHPV 42103 [facility] WILFREDO, VACCINE 3 9 [facility] COBY DOSE E CENTER SCHEDULE FOR IM USE CROWN - D2752 [facility] [place] 9 [facility] FUSED TO DENTAL [place] [address] [facility] DEIDRA WILLS, MAXILLOFA 9 RADIOLOGY J CIAL W/O CONTRAST MATERIAL INJECTION J3030 [facility] 9 N N [facility] SUCCINATE 6 MG BLOOD 28046 ALISHA VILLALOBOS OCCULT 9 [facility]ALTH[facility] COBY PEROXIDAS E CENTER E ACTV QUAL FECES 1 DETER GONADOTRO 80717 [facility] PIN 9 N N [facility] QUALITATI VE BLOOD 94954 [facility] COUNT 9 N N COMPLETE [facility] AUTO&AUTO HOSPITAL HOSPITAL DIFRNTL WBC URNLS DIP 38716 [facility] 9 N N STICK/TAB [facility] REAGENT AUTO MICROSCOP Y BLOOD 45777 [facility] OCCULT 9 N N PEROXIDAS [facility] E [facility] QUAL FECES 1-3 SPEC TOPICAL D1203 [facility] APPLICATI 9 [place] ON OF DENTAL DENTAL [place] [address] [facility] LIPASE [address] [place] [address] [facility] [place] MORALES, ABDOMEN 9 RADIOLOGY RICARDA L W/CONTRAS T MATERIAL COMPREHEN 52667 [facility] SIVE 9 N N [facility] CT PELVIS 80192 [facility] 9 N N W/CONTRAS [facility] MATERIAL PERIODONT D4910 [facility] AL 9 [place] MAINTENAN DENTAL DENTAL CE CARE CARE ANALGESIA D9230 [facility] 8 [place] ANXIOLYSI DENTAL DENTAL S CARE CARE INHALATIO N OF NITROUS OXIDE LOC DEL D4381 [facility] ANTIMICRO 8 [place] BL AGTS DENTAL DENTAL CREVICULR CARE CARE TISS TOOTH BR CORE D2950 [facility] BUILDUP 8 [place] INCLUDING DENTAL DENTAL ANY PINS CARE CARE CROWN - D2752 [facility] PORCELAIN 8 [place] FUSED TO DENTAL DENTAL [facility]ARE CARE METAL TYMPANOME 20707 ROLY DUNHAM, TRY 8 JOYCE Mena COMPRE 37761 ROLY DUNHAM, AUDIOMETR 8 JOYCE Mena Y THRESHOLD EVAL SP RECOGNIJ DISTORT 98047 ROLY DUNHAM, PRODUCT 8 JOYCE Mena EVOKED OTOACOUST IC EMISNS LIMITD CYTP C/V 82144 PATHOLOGY PATHOLOGY AUTO THIN 8 & & LYR CYTOLOGY CYTOLOGY PREPJ SCR LAB LAB MNL RESCR PHYS IADNA 81790 PATHOLOGY PATHOLOGY NEISSERIA 8 & & CYTOLOGY CYTOLOGY GONORRHOE LAB LAB AE AMPLIFIED PROBE TQ IADNA 04486 PATHOLOGY PATHOLOGY CHLAMYDIA 8 & & CYTOLOGY CYTOLOGY TRACHOMAT LAB [place] [address] [facility] LIPASE 8 N N [facility] URNLS DIP 23520 [facility] 8 N N STICK/TAB [facility] NON-AUTO W/O MICRSCP CT PELVIS 71572 [facility] 8 N N W/CONTRAS [facility] MATERIAL COMPREHEN 58959 [facility] SIVE 8 N N [facility] NFUS 06198 [facility] HYDRATION 8 [place] [address] [facility] ABDOMEN 8 N N W/CONTRAS [facility] MATERIAL BLOOD 36258 [facility] COUNT 8 N N COMPLETE [facility] AUTO&AUTO [facility] DIFRNTL WBC GONADOTRO 74261 [facility] PIN 8 N N [facility]IC [facility] QUALITATI VE SUSCEPTIB 86461 [facility] LTY STDY 8 N N ANTIMICRB [facility] MICRO/AGA R DILUTJ INCISION 05611 [facility] CELLAROSI & 8 CHAU - YORBA, DRAINAGE EMERGENCY MIRTA ABSCESS PHYS INC M COMPLICAT ED/MULTIP LE CUL BACT 23223 [facility] XCPT 8 N N URINE [facility] OL AEROBIC ISOL AMB A0427 [facility] SERVICE 8 HOWARD LAWRENCE ALS CO EMS CO EMS EMERGENCY TRANSPORT LEVEL 1 RADIOLOGI 49000 [facility] [place] ZAMORA EXAM 8 RADIOLOGY J CHEST 2 VIEWS FRONTAL&L ATERAL GROUND A0425 [facility] MILEAGE 8 HOWARD LAWRENCE PER CO EMS CO EMS STATUTE MILE URINE 72278 H[facility]IZ[facility] WILFREDO, 8 [facility]ALTH[facility] COBY TEST E CENTER VISUAL COLOR CMPRSN METHS COLLECTIO 63109 [facility] N VENOUS [address] [facility] URE URNLS DIP 62390 H[facility]IZON WILFREDO, 8 HEALTH[facility] COBY STICK/TAB E CENTER LET RGNT AUTO W/O MICROSCOP Y GONADOTRO 89952 [facility] PIN 8 N N [facility] QUANTITAT JUDE AMB A0427 [facility] 8 Sandra-LORETTA LAWRENCE ALS CO EMS CO EMS EMERGENCY TRANSPORT LEVEL 1 GROUND A0425 [facility] MILEAGE 8 HOWARD LAWRENCE PER CO EMS CO EMS STATUTE MILE URINE 42801 H[facility]IZ[facility] JR, 8 [facility]ALTH[facility] DAO TEST E CENTER VISUAL COLOR CMPRSN METHS AMB A0427 [facility] 8 HOWARD LAWRENCE ALS CO EMS CO [place] [address] [facility] HEAD/BRAI 8 N N N W/O [facility] MATERIAL RADEX 23287 [facility] SPINE 8 N N LUMBOSACR [facility] VIEWS RADIOLOGI 08813 [facility] C 8 N N EXAMINATI [facility] ON [facility] 2 VIEWS GROUND A0425 [facility] 8 HOWARD LAWRENCE PER CO EMS CO EMS STATUTE MILE GROUND A0425 [facility] 8 HOWARD LAWRENCE PER CO EMS CO EMS STATUTE MILE AMB A0427 [facility] 8 HOWARD LAWRENCE ALS CO EMS CO EMS EMERGENCY TRANSPORT LEVEL 1 AMB A0427 [facility] 8 Sandra-LORETTA LAWRENCE ALS CO EMS CO EMS EMERGENCY TRANSPORT LEVEL 1 GROUND A0425 [facility] 8 HOWARD LAWRENCE PER CO EMS CO EMS STATUTE MILE RADIOLOGI 53034 [facility] Trina NUÑEZ 8 RADIOLOGY T EXAMINATI [place] [address] [facility] [place] Trina SMITH HEAD/BRAI 8 RADIOLOGY T N W/O CONTRAST MATERIAL AMB A0427 [facility] SERVICE 8 HOWARD LAWRENCE ALS CO EMS CO EMS EMERGENCY TRANSPORT LEVEL 1 GROUND A0425 [facility] MILEA 8 HOWARD LAWRENCE PER CO EMS CO EMS STATUTE MILE Encounters Encounter Start End Date Code Location Performer Type Date HOSPITAL LINH - 6 6 [facility] INC T [facility]OSPITAL LINH - 6 6 [facility] OUTPATIEN [facility] T OFFICE 65242 [facility] 6 6 PHYSICIAN MAGDIEL T VISIT S GROUP 15 MINUTES EMERGENCY 86888 LINH 6 6 [facility] DEPARTMEN INC T VISIT HIGH/URGE NT SEVERITY HOSPITAL LINH - 6 6 [facility] OUTPATIEN INC T INITIAL 43477 SOCORRO EDGAR PREVENTIV 6 6 TALA ECHEVERRIA SIENNA MEDICINE NEW PT AGE 18-39YRS [facility] - 6 6 [facility] OUTPATIEN INC T EMERGENCY 02765 [facility] CALL, 6 6 PHYSICIAN JR HUGHES DEPARTMEN S, [facility] T VISIT HIGH/URGE NT SEVERITY OFFICE 79821 [facility] AMBER TOD OUTPATIEN 5 5 PHYSICIAN T VISIT S GROUP 10 MINUTES OFFICE 46622 [facility] AMBER TOD OUTPATIEN 5 5 PHYSICIAN T NEW 30 S GROUP MINUTES HOSPITAL LINH - 5 5 [facility] OUTPATIEN INC T OFFICE 16125 [facility]Y[place] OUTPATIEN 5 5 [facility] T VISIT HOSPITAL 15 MINUTES EMERGENCY 51875 SANTANA SULLIVANU SANTANA SULLIVANU 5 5 DEPARTMEN T VISIT MODERATE SEVERITY EMERGENCY 79676 RHETT DELANEY 5 5 MAGDIEL MAGDIEL DEPARTMEN T VISIT MODERATE SEVERITY OFFICE 11752 [facility] RHETT OUTPATIEN 5 5 PHYSICIAN MAGDIEL T VISIT S GROUP 15 MINUTES HOSPITAL LINH Pond 5 5 [facility] OUTPATIEN INC T EMERGENCY 74461 [facility] [place] 5 5 [facility] T VISIT P MODERATE SEVERITY EMERGENCY 73428 [facility] 4 4 CHAU IMT VISIT EMERGENCY HIGH PHYS SEVERITY& THREAT FUNCJ OFFICE 54979 HOWARD LAWRENCE OUTPATIEN 4 4 SHWETHA SHWETHA T VISIT 15 MINUTES OFFICE 69335 HOWARD LAWRENCE OUTPATIEN 4 4 SHWETHA SHWETHA T NEW 30 MINUTES EMERGENCY 07482 [facility] 4 4 CHAU ROCHELLE DEPARTMEN EMERGENCY T VISIT PHYS HIGH/URGE NT SEVERITY EMERGENCY 64493 [facility] 4 4 CHAU MAGDIEL [facility] EMERGENCY T VISIT PHYS HIGH/URGE NT SEVERITY EMERGENCY 10657 [facility] 4 4 DEPARTMEN T VISIT HIGH/URGE NT SEVERITY HOSPITAL LINH - 4 4 [facility] OUTPATIEN INC T HOSPITAL LINH - 4 4 [facility] OUTPATIEN INC T OFFICE 33570 VILL[facility]IO VILLAVICENCIO OUTPATIEN 4 4 ENMA ENMA T VISIT 15 MINUTES OFFICE 77317 [facility] VILLAVICENCIO OUTPATIEN 4 4 ENMA ENMA T NEW 30 MINUTES OFFICE 58475 [place] [facility] 1 1 MEDICAL CASI ION SERV NEW/ESTAB FOUNDATIO PATIENT 60 MIN OFFICE 58898 [facility] OUTPATIEN 1 1 ENMA T VISIT PEDIATRIC 15 S & INTER MINUTES EMERGENCY 11913 RUBIA PRO 1 1 [facility]IS[facility] HIGH/URGE NT SEVERITY OFFICE 22176 [facility] VILLAVICENCIO OUTPATIEN 1 1 ENMA T VISIT PEDIATRIC 15 S & INTER MINUTES OFFICE 06140 [facility] OUTPATIEN 1 1 YOUSIF YOUSIF T NEW 10 MINUTES EMERGENCY 67923 RUBIA MESSINA 1 1 EMERGENCY [facility] DEPARTMEN SERVICES T VISIT HIGH/URGE NT [facility] 16722 REYNOLD ELISE OUTPATIEN 1 1 AND T VISIT PEDIATRIC 15 S & INTER MINUTES OFFICE 86841 [facility] VILLAVICENCIO OUTPATIEN 0 0 ENMA T VISIT PEDIATRIC 15 S & INTER MINUTES OFFICE 10493 [facility] VILLAVICENCIO OUTPATIEN 0 0 ENMA T VISIT PEDIATRIC 15 S & INTER MINUTES EMERGENCY 41225 RUBIA CELLAROSI DEPT 0 0 EMERGENCY - YORBA VISIT SERVICES PAT HIGH SEVERITY& THREAT [facility] 78935 [facility] VILLAVICENCIO OUTPATIEN 0 0 ENMA T VISIT PEDIATRIC 15 S & INTER MINUTES OFFICE 53812 [place] ARIK OUTPATIEN 0 0 AND T VISIT PEDIATRIC 15 S & INTER MINUTES OFFICE 91763 [facility]AGR[facility] ARIK OUTPATIEN 0 0 AND T VISIT PEDIATRIC 15 S & INTER MINUTES OFFICE 09324 [facility] VILLAVICENCIO OUTPATIEN 0 0 ENMA T VISIT PEDIATRIC 15 S & INTER MINUTES EMERGENCY 41505 RUBIA ARNOLD 0 0 EMERGENCY [facility] DEPARTMEN SERVICES T VISIT MODERATE [facility] 0 0 [facility] 26644 [facility] VILLAVICENCIO OUTPATIEN 0 0 ENMA T VISIT PEDIATRIC 25 S & INTER MINUTES OFFICE 46407 [facility]UGH OUTPATIEN 0 0 AND T VISIT PEDIATRIC 15 S & INTER MINUTES OFFICE 87444 [facility] VILLAVICENCIO OUTPATIEN 0 0 ENMA T VISIT PEDIATRIC 15 S & INTER MINUTES OFFICE 85344 [facility] VILLAVICENCIO OUTPATIEN 0 0 ENMA T VISIT PEDIATRIC 25 S & INTER MINUTES OFFICE 48199 [facility] OUTPATIEN 0 0 AND T VISIT PEDIATRIC 15 S & INTER MINUTES OFFICE 11575 [facility] VILLAVICENCIO OUTPATIEN 0 0 ENMA T VISIT PEDIATRIC 15 S & INTER MINUTES OFFICE 40763 [facility] VILLAVICENCIO OUTPATIEN 0 0 ENMA T VISIT PEDIATRIC 15 S & INTER MINUTES [facility] - 9 9 N [facility] OFF[facility] 26233 [facility] VILLAVICENCIO OUTPATIEN 9 9 ENMA T VISIT PEDIATRIC 15 S & INTER MINUTES OFFICE 03036 [facility] OUTPATIEN 9 9 ENMA T VISIT PEDIATRIC 15 S & INTER MINUTES OFFICE 54375 [facility] VILLAVICENCIO OUTPATIEN 9 9 ENMA T VISIT PEDIATRIC 25 S & INTER MINUTES [facility] - 9 9 N [facility] 61214 [facility] 9 9 N FRANCY L ION OBSTETRIC NEW/ESTAB S AND PATIENT GYNECOLOG 40 MIN Y OFFICE 10350 [facility] OUTPATIEN 9 9 ENMA T NEW 45 PEDIATRIC MINUTES S & INTER EMERGENCY 41129 [facility] 9 9 N [facility] VISIT HOSPITAL LOW/MODER SEVERITY [facility] 9 9 N [facility] EMERGENCY 24229 RUBIA CELLAROSI 9 9 EMERGENCY - YORBA, [facility] MIRTA T VISIT M MODERATE ASSOCIATE SEVERITY S EMERGENCY 08891 RUBIA PENA, 9 9 [facility]ER[facility]Y [facility] T VISIT HIGH/URGE ASSOCIATE NT S SEVERITY EMERGENCY 14971 [facility] 9 9 N [facility] T VISIT HOSPITAL MODERATE SEVERITY HOSPITAL [facility] - 9 9 N [facility] OFFICE 92567 [facility] 9 9 HEALTHCAR DAO T VISIT E CENTER 10 MINUTES EMERGENCY 18822 RUBIA HOLLANDSI 9 9 EMERGENCY - YORBA, [facility] MIRTA T VISIT M HIGH/URGE ASSOCIATE NT S SEVERITY OFFICE 34622 ALISHA VILLALOBOS [facility] 9 9 HEALTHCAR COBY T VISIT E CENTER 15 MINUTES OFFICE 69069 TAMPA ÁNGEL LEAL 9 9 [place] JARRET Treviño T VISIT ORTHOPAED 15 [facility] MINUTES HOSPITAL [facility] - 9 9 N [facility] OFFICE 22859 TAMPA MEL [facility] 9 9 [place] JARRET Treviño ION ORTHOPAED NEW/ESTAB ICS [facility] PATIENT 60 MIN HOSPITAL [facility] - 9 9 N [facility] PERIODIC 67871 ALISHA VILLALOBOS PREVENTIV 9 9 HEALTHCAR COBY E MED EST E CENTER PATIENT 12-17YRS EMERGENCY 88205 SUSHMA LIGHT, 9 9 CHAU Khan DEPARTMEN EMERGENCY T VISIT PHYS INC MODERATE SEVERITY EMERGENCY 40228 SUSHMA LIGHT, 9 9 CHAU Khan DEPARTMEN EMERGENCY T VISIT PHYS INC HIGH/URGE NT SEVERITY HOSPITAL [facility] - 9 9 N [facility] OFFICE 48449 ALISHA MARCANO [facility] 9 9 HEALTHCAR KATLYN W T VISIT E CENTER 15 MINUTES EMERGENCY 14006 [facility] 9 9 CHAU - YORBA, [facility] EMERGENCY MIRTA T VISIT PHYS INC M MODERATE SEVERITY OFFICE 76320 [facility] 9 9 [facility] COBY T VISIT E CENTER 15 MINUTES EMERGENCY 99756 [facility] 9 9 N [facility] T VISIT HOSPITAL HIGH/URGE NT SEVERITY HOSPITAL [facility] - 9 9 N [facility] EMERGENCY 99156 [facility] JOSÉ MIGUEL, DEPT 9 9 CHAU JEAN MARIE H VISIT EMERGENCY HIGH PHYS INC SEVERITY& THREAT FUNCJ OFFICE 06900 ROLY DUNHAM, CONSULTAT 8 8 JOYCE Mena ION NEW/ESTAB PATIENT 40 MIN OFFICE 71990 JAMES RAMIREZ CONSULTAT 8 8 RAMONE Terviño ION NEW/ESTAB PATIENT 40 MIN OFFICE 27592 [facility] 8 8 [facility] DAO T [facility]ISIT E CENTER 15 MINUTES HOSPITAL [facility] - 8 8 N [facility] EMERGENCY 81805 [facility] DEPT 8 8 CHAU - KELLYRBA, VISIT EMERGENCY MIRTA HIGH PHYS INC M SEVERITY& THREAT FUNCJ EMERGENCY 85424 [facility] 8 8 N [facility] T VISIT HOSPITAL HIGH/URGE NT SEVERITY EMERGENCY [id number] [facility] 8 8 CHAU - YORBA, [facility] EMERGENCY MIRTA T VISIT PHYS INC M MODERATE SEVERITY HOSPITAL [facility] - 8 8 N [facility] EMERGENCY 50813 [facility] 8 8 N [facility] VISIT HOSPITAL LOW/MODER SEVERITY EMERGENCY 37500 [facility] 8 [facility] RO[place]IE VISIT EMERGENCY A HIGH PHYS INC SEVERITY& THREAT FUNCJ EMERGENCY 78683 [facility] T VISIT PHYS INC M MODERATE SEVERITY OFFICE 39981 [facility] 8 8 [facility] COBY T VISIT E CENTER 15 MINUTES HOSPITAL [facility] - 8 8 N [facility] OFFICE [id number] HORIZ[facility] JR, [facility] 8 8 [facility] DAO T VISIT E CENTER 15 MINUTES OFFICE [id number] [facility] ELLEN, [facility] 8 8 [facility] CHAVO T VISIT E CENTER 10 MINUTES EMERGENCY 22399 [facility] 8 8 N [facility] T VISIT HOSPITAL MODERATE SEVERITY EMERGENCY 06694 [facility] PENAT 8 8 CHAU MICHAEL VISIT EMERGENCY HIGH PHYS INC SEVERITY& THREAT FUNJ HOSPITAL [facility] - 8 8 N [facility] EMERGENCY 11630 [facility], 8 8 CHAU Khan [facility] EMERGENC[facility] T VISIT PHYS INC HIGH/URGE NT SEVERITY EMERGENCY 35997 [facility] LIGHTT 8 8 CHAU Khan VISIT EMERGENCY HIGH PHYS INC SEVERITY& THREAT FUNCJ EMERGENCY 20445 [facility] GARGT 8 8 [facility] [place] VISIT EMERGENCY A HIGH PHYS INC SEVERITY& THREAT FUNCJ
--- OUTSIDE RECORDS SUMMARY | 2017-01-18 18:36 | External Medical Summary Rpt ---
Author Author , Organization [employer] Address Unknown Phone Unavailable Purpose Continuity of Care Document - 02-17-1996 through 2016 Immunization Name Date Route CVX Reacti Commen Provid Is Given on t er Refuse d Hep B, Histor H149 No 2003 ical ped/ad Inform ol ation - Source Unspec ified Td Histor H149 No (adult 2003 ical ), Inform adsorb ation ed - Source Unspec ified Hep B, Histor H149 No 2003 ical ped/ad Inform ol ation - Source Unspec ified Hep B, Histor H134 No 1996 ical ped/ad Inform ol ation - Source Unspec ified MMR Histor H134 No 1995 ical Inform ation - Source Unspec ified DTP Histor H134 No 1995 ical Inform ation - Source Unspec ified Polio- Histor H134 No OPV 1995 ical Inform ation - Source Unspec ified
[2017-01-18] MEDS ORDERED: VISTARIL25 M1 PO (18:37)
--- OUTSIDE RECORDS SUMMARY | 2017-01-18 18:37 | External Medical Summary Rpt ---
Author Author [employer], [employer] Organization [employer] Address Unknown Phone Unavailable Results Urinalysis dipstick W Reflex Microscopic panel in Urine Observa Value Referen Units Interpr Notes Date tion ce etation Range Appeara CLEAR CLEAR No No No Jan 18 nce of informa informa informa 2016 Urine tion in tion in tion in 5:50 PM source source source data data data Bilirub NEGATIV NEG No No No Jan 18 in E informa informa informa 2016 [Presen tion in tion in tion in 5:50 PM ce] in source source source Urine data data data by Test strip Erythro NEGATIV NEG No No No Jan 18 cytes E informa informa informa 2016 [Presen tion in tion in tion in 5:50 PM ce] in source source source Urine data data data Color YELLOW YELLOW No No No Jan 18 of informa informa informa 2016 Urine tion in tion in tion in 5:50 PM source source source data data data Glucose NEG No No No Jan 18 [Mass/vol informati informati informati 2016 5:50 ume] in on in on in on in PM Urine by source source source Test data data data strip Ketones NEGATIV NEG mg/dL No No Jan 18 E informa informa 2016 [Presen tion in tion in 5:50 PM ce] in source source Urine data data by Automat ed test strip Mucus NEGATIV NEG No No No Jan 18 [Presen E informa informa informa 2016 ce] in tion in tion in tion in 5:50 PM Urine source source source sedimen data data data t by Light microsc opy Nitrite NEGATIV NEG No No No Jan 18 E informa informa informa 2016 [Presen tion in tion in tion in 5:50 PM ce] in source source source Urine data data data by Test strip pH of 5.0 - 8.5 No Normal No Jan 18 Urine informati informati 2016 5:50 on in on in PM source source data data Protein NEG mg/dL No No Jan 18 [Mass/vol informati informati 2016 5:50 ume] in on in on in PM Urine by source source Automated data data test strip Specific 1.005 - No Normal No Jan 18 gravity 1.030 informati informati 2016 5:50 of Urine on in on in PM source source data data Urobili 0.2 NEG E.U./dL No No Jan 18 nogen informa informa 2016 [Presen tion in tion in 5:50 PM ce] in source source Urine data data by Test strip CHLAMYDIA AND GONORRHEA TESTING Observa Value Referen Units Interpr Notes Date tion ce etation Range COLLECT URINE No No No No Jan 29 OR GEN informa informa informa informa 2014 PROBE tion in tion in tion in tion in 11:00 source source source source AM data data data data ETHNICI BLACK, No No No No Jan 29 TY NON-HIS informa informa informa informa 2014 PANIC tion in tion in tion in tion in 11:00 source source source source AM data data data data KIT No No No No Jan 29 EXPIRAT 015 informa informa informa informa 2015 ION tion in tion in tion in tion in 11:00 DATE source source source source AM data data data data SYMPTOM YES No No No No Jan 29 S informa informa informa informa 2015 tion in tion in tion in tion in 11:00 source source source source AM data data data data REASON SEX No No No No Jan 29 FOR PARTNER informa informa informa informa 2015 REQUEST tion in tion in tion in tion in 11:00 REFERRA source source source source AM L data data data data SPECIME URINE No No No No Jan 29 N informa informa informa informa 2015 SOURCE tion in tion in tion in tion in 11:00 source source source source AM data data data data PREGNAN NO No No No No Jan 29 T informa informa informa informa 2015 tion in tion in tion in tion in 11:00 source source source source AM data data data data CHART N/A No No No No Jan 29 NUMBER informa informa informa informa 2015 tion in tion in tion in tion in 11:00 source source source source AM data data data data Chlamyd NEGATIV No No No NEGATIV Jan 29 ia E informa informa informa E 2015 trachom tion in tion in tion in RESULT= 11:00 atis source source source WITHIN AM rRNA data data data NORMAL [Presen ce] in LIMITSP Unspeci OSITIVE fied specime RESULT= n by Probe & ABNORMA target LEQUIVO ARIELLE amplifi RESULT= cation method INDETER MINATEU NSATISF ACTORY RESULT= INVALID Neisser NEGATIV No No No NEGATIV Jan 29 ia E informa informa informa E 2015 gonorrh tion in tion in tion in RESULT= 11:00 oeae source source source WITHIN AM rRNA data data data NORMAL [Presen ce] in LIMITSP Unspeci OSITIVE fied specime RESULT= n by Probe & ABNORMA target LEQUIVO ARIELLE amplifi RESULT= cation method INDETER MINATEU NSATISF ACTORY RESULT= INVALID THE APTIMA COMBO 2 ASSAY IS NOT INTENDE D FOR THE EVALUAT ION OF SUSPECT EDSEXUA L ABUSE OR FOR OTHER MEDICO- LEGAL INDICAT IONS. FOR THOSE PATIENT S FORWHOM A FALSE POSITIV E RESULT MAY HAVE ADVERSE PSYCHO- SOCIAL IMPACT, [facility].\.br \This report contain s patient informa tion that must be protect ed in accorda nce with the Health Insuran ce Portabi lity and Account ability Act. Treponema pallidum IgG Ab [Presence] in Serum by Immunoassay Observa Value Referen Units Interpr Notes Date tion ce etation Range COLLECT A. REYNA No No No No Jan 29 OR informa informa informa informa 2014 tion in tion in tion in tion in 11:00 source source source source AM data data data data ETHNICI AA No No No No Jan 29 TY informa informa informa informa 2015 tion in tion in tion in tion in 11:00 source source source source AM data data data data PURPOSE DIAGNOS No No No No Jan 29 OF TIC informa informa informa informa 2015 EXAM tion in tion in tion in tion in 11:00 source source source source AM data data data data SPECIME BLOOD No No No No Jan 29 N informa informa informa informa 2015 SOURCE tion in tion in tion in tion in 11:00 source source source source AM data data data data CHART N/A No No No No Jan 29 NUMBER informa informa informa informa 2015 tion in tion in tion in tion in 11:00 source source source source AM data data data data Trepone UNSATIS No No No METHOD Jan 29 ma FACTORY informa informa informa OF 2015 pallidu : SERUM tion in tion in tion in ANALYSI 11:00 m IgG source source source S: AM Ab HEMOLYZ data data data EIANORM [Presen ED AL ce] in RANGE: Serum NON-OTIS by CTIVE\. Immunoa br\This ssay report contain s patient informa tion that must be protect ed in accorda nce with the Health Insuran ce Portabi lity and Account ability Act. CHLAMYDIA AND GONORRHEA TESTING Observa Value Referen Units Interpr Notes Date tion ce etation Range COLLECT URINE No No No No Jan 29 OR GEN informa informa informa informa 2015 PROBE tion in tion in tion in tion in 11:00 source source source source AM data data data data ETHNICI BLACK, No No No No Jan 29 TY NON-HIS informa informa informa informa 2015 PANIC tion in tion in tion in tion in 11:00 source source source source AM data data data data KIT No No No No Jan 29 EXPIRAT 015 informa informa informa informa 2015 ION tion in tion in tion in tion in 11:00 DATE source source source source AM data data data data SYMPTOM YES No No No No Jan 29 S informa informa informa informa 2015 tion in tion in tion in tion in 11:00 source source source source AM data data data data REASON SEX No No No No Jan 29 FOR PARTNER informa informa informa informa 2015 REQUEST tion in tion in tion in tion in 11:00 REFERRA source source source source AM L data data data data SPECIME URINE No No No No Jan 29 N informa informa informa informa 2015 SOURCE tion in tion in tion in tion in 11:00 source source source source AM data data data data PREGNAN NO No No No No Jan 29 T informa informa informa informa 2015 tion in tion in tion in tion in 11:00 source source source source AM data data data data CHART N/A No No No No Jan 29 NUMBER informa informa informa informa 2015 tion in tion in tion in tion in 11:00 source source source source AM data data data data Chlamyd Pending No No No No Jan 29 ia informa informa informa informa 2015 trachom tion in tion in tion in tion in 11:00 atis source source source source AM rRNA data data data data [Presen ce] in Unspeci fied specime n by Probe & target amplifi cation method Neisser Pending No No No \.br\Jan 29 ia informa informa informa is 2015 gonorrh tion in tion in tion in report 11:00 oeae source source source contain AM rRNA data data data s [Presen patient ce] in Unspeci informa fied tion specime that n by must be Probe & target protect ed in amplifi accorda cation nce method with the Health Insuran ce Portabi lity and Account ability Act. Treponema pallidum IgG Ab [Presence] in Serum by Immunoassay Observa Value Referen Units Interpr Notes Date tion ce etation Range COLLECT A. REYNA No No No No Jan 29 OR informa informa informa informa 2015 tion in tion in tion in tion in 11:00 source source source source AM data data data data ETHNICI AA No No No No Jan 29 TY informa informa informa informa 2015 tion in tion in tion in tion in 11:00 source source source source AM data data data data PURPOSE DIAGNOS No No No No Jan 29 OF TIC informa informa informa informa 2015 EXAM tion in tion in tion in tion in 11:00 source source source source AM data data data data SPECIME BLOOD No No No No Jan 29 N informa informa informa informa 2015 SOURCE tion in tion in tion in tion in 11:00 source source source source AM data data data data CHART N/A No No No No Jan 29 NUMBER informa informa informa informa 2015 tion in tion in tion in tion in 11:00 source source source source AM data data data data Trepone Pending No No No \.br\Jan 29 ma informa informa informa is 2015 pallidu tion in tion in tion in report 11:00 m IgG source source source contain AM Ab data data data s [Presen patient ce] in Serum informa by tion Immunoa that ssay must be protect ed in [facility] with the Health Insuran ce Portabi lity and Account ability Act. Treponema pallidum IgG Ab [Presence] in Serum by Immunoassay Observa Value Referen Units Interpr Notes Date tion ce etation Range COLLECT MSB No No No No Jan 22 OR informa informa informa informa 2015 tion in tion in tion in tion in 6:15 PM source source source source data data data data ETHNICI AA No No No No Jan 22 TY informa informa informa informa 2015 tion in tion in tion in tion in 6:15 PM source source source source data data data data PURPOSE ROUTINE No No No No Jan 22 OF informa informa informa informa 2015 EXAM tion in tion in tion in tion in 6:15 PM source source source source data data data data SPECIME BLOOD No No No No Jan 22 N informa informa informa informa 2015 SOURCE tion in tion in tion in tion in 6:15 PM source source source source data data data data CHART NA No No No No Jan 22 NUMBER informa informa informa informa 2015 tion in tion in tion in tion in 6:15 PM source source source source data data data data Trepone NON-OTIS No No No METHOD Jan [address] informa informa informa OF 2015 pallidu tion in tion in tion in ANALYSI 6:15 PM m IgG source source source S: Ab data data data EIANORM [Presen AL ce] in RANGE: Serum NON-OTIS by CTIVE\. Immunoa br\This ssay report contain s patient informa tion that must be protect ed in [facility] with the Health Insuran ce Portabi lity and Account ability Act. Treponema pallidum IgG Ab [Presence] in Serum by Immunoassay Observa Value Referen Units Interpr Notes Date tion ce etation Range COLLECT MSB No No No No Jan 22 OR informa informa informa informa 2015 tion in tion in tion in tion in 6:15 PM source source source source data data data data ETHNICI AA No No No No Jan 22 TY informa informa informa informa 2015 tion in tion in tion in tion in 6:15 PM source source source source data data data data PURPOSE ROUTINE No No No No Jan 22 OF informa informa informa informa 2015 EXAM tion in tion in tion in tion in 6:15 PM source source source source data data data data SPECIME BLOOD No No No No Jan 22 N informa informa informa informa 2015 SOURCE tion in tion in tion in tion in 6:15 PM source source source source data data data data CHART NA No No No No Jan 22 NUMBER informa informa informa informa 2015 tion in tion in tion in tion in 6:15 PM source source source source data data data data Trepone Pending No No No \.br\Jan 22 ma informa informa informa is 2015 pallidu tion in tion in tion in report 6:15 PM m IgG source source source contain Ab data data data s [Presen patient ce] in Serum informa by tion Immunoa that ssay must be protect ed in accorda nce with the Health Insuran ce Maribeth galdamez and Account ability Act.
--- OUTSIDE RECORDS SUMMARY | 2017-01-18 18:37 | External Medical Summary Rpt ---
[...] MAY HAVE ADVERSE PSYCHO- SOCIAL IMPACT, [facility].\.br \This report contain s [...] that ssay must be protect ed in [facility] with the Health Insuran ce Portabi lity [...] tion that must be protect ed in [facility] with the Health Insuran ce Portabi lity [...]
--- NOTE | 2017-01-18 18:38 | Emergency Room Report ---
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 N Clinical Suspician of Infection? N Mental Status: 1 - Regular (Normal Baseline) Sepsis Risk:Possible Sepsis Risk Have you (or family members/close friends) recently traveled outside the [place]? N If Yes, where/when: Have you had exposure to infectious disease within the past month? TB? Other? Specify: Anxiety attack today, no specific stressor, feeling fine now. No other sx. Hx of same. ALLERGIES Coded Allergies: naproxen (From NAPROSYN) (Intermediate, I-ITCHING 01/18/17) ibuprofen (Mild, NA-NAUSEA/VOMITING 01/18/17) Home Medications Reported Medications Loratadine (Claritin 10MG) 10 MG PO DAILY #30 BUPROPION HCL (Bupropion HCl 75MG) 75 MG PO QHS #60 Hydroxyzine Pamoate (Hydroxyzine) 25 MG PO Q6HP PRN anxiety #90 Quetiapine Fumarate 50 MG PO BID #60 Cyclobenzaprine Hcl 10 MG OR BIDP PRN pain #90 Clonazepam (Clonazepam 1MG) 1 MG PO BIDP PRN ANXIETY #60 Escitalopram Oxalate 20 MG PO DAILY #30 History Medical History General CAD? No Angina: No [place]: No Hypertension? No Hyperlipidemia? No CHF? No DVT? No PE? No COPD? No Asthma? Yes Anemia? No GERD? No Gastric ulcers? No GI Bleed? No Hernia? No Thyroid Problems? No Hypothyroidism? No CVA? No Seizures? No Diabetes? No Renal Insuffiency? No End Stage Renal Disease? No UTI? No Stones? No BPH? No GB Disease: No Nephritic Syndrome? No Asplenia? No Hepatitis? No Sickle Cell Disease? No Arthritis? No Migraines? No Cataracts? No Glaucoma? No MRSA? No HIV? No TB? No Anxiety? No Depression? No Cancer? No More? 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 Social History Smoking Hx Smoker: Current Every Day Smoker Tobacco: Yes Type Cigarettes Packs/day < 1 Pack Alcohol Alcohol: No Review of Systems All Other Systems Reviewed and Negative Psychiatric/Neurological see HPI Physical Exam Vital Signs Vital Signs Date Time Temp Pulse Resp B/P Pulse O2 O2 Flow FiO2 Ox Delivery Rate 01/18 1732 98.7 93 20 107/7 99 General Appearance normal appearance, WD/WN, no apparent distress Eye Exam - bilateral eye normal exam, bilateral eye PERRL, bilateral eye EOMI Ear, Nose, Throat hearing grossly normal (atraumatic) Neck normal inspection, non-tender, supple, full range of motion Respiratory Status Yes: trachea midline, chest symmetrical, non tender chest. No: respiratory distress, tender on palpation, use of accessory muscles, pain on inspiration, pain on expiration, productive cough, non productive cough. Lung Sounds bilateral: normal breath sounds, lungs clear. 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 No Results/Orders Laboratory Tests 01/18/17 1750: Urine Color YELLOW, Urine Appearance CLEAR, Urine pH 6.0, Ur Specific [place] 1.010, Urine Protein NEGATIVE, Urine Ketones NEGATIVE, Urine Blood NEGATIVE, Urine Nitrate NEGATIVE, Urine Bilirubin NEGATIVE, Urine Urobilinogen 0.2, Ur Leukocyte Esterase NEGATIVE, Urine Glucose NEGATIVE Orders Procedure Date/time Status Urine Test, Perform/ 01/18 1751 Active URINALYSIS/COMPLETE 01/18 1751 Complete Departure Departure Time of Disposition 1834 Disposition DC Home or Self Care(routine) Clinical Impression Primary Impression: Anxiety attack Condition STABLE Referrals FARZAD SHAH, ADITYA (Family) Patient Instructions DI for Anxiety -- Adult Additional Instructions Vistaril, see Aditya as needed Discharge Counseling Counseled pt/family regarding diagnosis, medications/RX, home care, follow up needs Prescriptions Current Visit Scripts Hydroxyzine Pamoate (Vistaril 25MG CAP) 25 MG PO Q6HP PRN anxiety #6 CAP ED Critical Care Critical Care No at 1836
--- NOTE | 2017-01-18 18:38 | Emergency Room Report ---
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 N Clinical Suspician of Infection? N Mental Status: 1 - Regular (Normal Baseline) Sepsis Risk:Possible Sepsis Risk Have you (or family members/close friends) recently traveled outside the [place]? N If Yes, where/when: Have you had exposure to infectious disease within the past month? TB? Other? Specify: Anxiety attack today, no specific stressor, feeling fine now. No other sx. Hx of same. ALLERGIES Coded Allergies: naproxen (From NAPROSYN) (Intermediate, I-ITCHING 01/18/17) ibuprofen (Mild, NA-NAUSEA/VOMITING 01/18/17) Home Medications Reported Medications Loratadine (Claritin 10MG) 10 MG PO DAILY #30 BUPROPION HCL (Bupropion HCl 75MG) 75 MG PO QHS #60 Hydroxyzine Pamoate (Hydroxyzine) 25 MG PO Q6HP PRN anxiety #90 Quetiapine Fumarate 50 MG PO BID #60 Cyclobenzaprine Hcl 10 MG OR BIDP PRN pain #90 Clonazepam (Clonazepam 1MG) 1 MG PO BIDP PRN ANXIETY #60 Escitalopram Oxalate 20 MG PO DAILY #30 History Medical History General CAD? No Angina: No [place]: No Hypertension? No Hyperlipidemia? No CHF? No DVT? No PE? No COPD? No Asthma? Yes Anemia? No GERD? No Gastric ulcers? No GI Bleed? No Hernia? No Thyroid Problems? No Hypothyroidism? No CVA? No Seizures? No Diabetes? No Renal Insuffiency? No End Stage Renal Disease? No UTI? No Stones? No BPH? No GB Disease: No Nephritic Syndrome? No Asplenia? No Hepatitis? No Sickle Cell Disease? No Arthritis? No Migraines? No Cataracts? No Glaucoma? No MRSA? No HIV? No TB? No Anxiety? No Depression? No Cancer? No More? 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 Social History Smoking Hx Smoker: Current Every Day Smoker Tobacco: Yes Type Cigarettes Packs/day < 1 Pack Alcohol Alcohol: No Review of Systems All Other Systems Reviewed and Negative Psychiatric/Neurological see HPI Physical Exam Vital Signs Vital Signs Date Time Temp Pulse Resp B/P Pulse O2 O2 Flow FiO2 Ox Delivery Rate 01/18 1732 98.7 93 20 107/7 99 General Appearance normal appearance, WD/WN, no apparent distress Eye Exam - bilateral eye normal exam, bilateral eye PERRL, bilateral eye EOMI Ear, Nose, Throat hearing grossly normal (atraumatic) Neck normal inspection, non-tender, supple, full range of motion Respiratory Status Yes: trachea midline, chest symmetrical, non tender chest. No: respiratory distress, tender on palpation, use of accessory muscles, pain on inspiration, pain on expiration, productive cough, non productive cough. Lung Sounds bilateral: normal breath sounds, lungs clear. 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 No Results/Orders Laboratory Tests 01/18/17 1750: Urine Color YELLOW, Urine Appearance CLEAR, Urine pH 6.0, Ur Specific [place] 1.010, Urine Protein NEGATIVE, Urine Ketones NEGATIVE, Urine Blood NEGATIVE, Urine Nitrate NEGATIVE, Urine Bilirubin NEGATIVE, Urine Urobilinogen 0.2, Ur Leukocyte Esterase NEGATIVE, Urine Glucose NEGATIVE Orders Procedure Date/time Status Urine Test, Perform/ 01/18 1751 Active URINALYSIS/COMPLETE 01/18 1751 Complete Departure Departure Time of Disposition 1834 Disposition DC Home or Self Care(routine) Clinical Impression Primary Impression: Anxiety attack Condition STABLE Referrals FARZAD SHAH, ADITYA (Family) Patient Instructions DI for Anxiety -- Adult Additional Instructions Vistaril, see Aditya as needed Discharge Counseling Counseled pt/family regarding diagnosis, medications/RX, home care, follow up needs Prescriptions Current Visit Scripts Hydroxyzine Pamoate (Vistaril 25MG CAP) 25 MG PO Q6HP PRN anxiety #6 CAP ED Critical Care Critical Care No at 1836
[2017-01-18 18:42] VITALS: BP 114/75
== END 2017-01-18 18:40 | disposition home or self-care (01) ==
LOC: ER 17:27
PROVIDERS: Emergency Medicine
DX: F41.9 Anxiety disorder, unspecified (principal); Z72.0 Tobacco use

== ENCOUNTER → 2017-04-15 | Outpatient (CLI) | payer MEDICAID ==
[~2017-04-15] MED LIST changes: +VISTARIL25 M1 PO
== END ==
LOC: LAB 18:02
DX: N93.9 Abnormal uterine and vaginal bleeding, unspecified (principal)

== ENCOUNTER → 2017-04-16 | Outpatient (CLI) | payer MEDICAID ==
--- NOTE | 2017-04-16 13:18 | RADIOLOGY REPORT PS360 ---
US PELVIS-TRANSVAGINAL ONLY HISTORY: Dysfunctional uterine bleeding, pelvic pain COMPARISON: None FINDINGS: UTERUS: The uterus measures 7 x 4 x 4 cm. Combined endometrial thickness is 6 mm. RIGHT OVARY: 2.4 x 1.4 x 2 cm LEFT OVARY: 3.4 x 1.5 x 1.8 cm There are small bilateral ovarian follicles and there is a small amount fluid around the right ovary. IMPRESSION: Unremarkable pelvic ultrasound with small bilateral ovarian follicles with small amount of fluid around the right ovary
== END ==
LOC: RAD 08:30
DX: N93.9 Abnormal uterine and vaginal bleeding, unspecified (principal)

== ENCOUNTER 2017-06-04 17:08 | Emergency (ER) | payer MEDICAID ==
[~2017-06-04] VITALS: Ht 157.5 cm; Wt 83.9 kg
[2017-06-04] MEDS ORDERED: HYDROCHLOROTHIA25 M1 PO (17:23)
--- OUTSIDE RECORDS SUMMARY | 2017-06-04 17:35 | External Medical Summary Rpt | CCD ---
Author Author , YE Organization YE Address Unknown Phone [email or web address] Care Team Providers Care Wardrobe Technician Name Role Phone Mario Escobar MD, Unavailable Unavailable Mario Diggs MD, Unavailable Unavailable Maya Diggs MD Purpose Continuity of Care Document - 05-30-2013 through 2016 Problems Code Diagnosis DOS Provider Status 305.1 305.1 07-08-2013 [place] TOBACCO USE [facility] 789.00 789.00 07-08-2013 [place] ABDOMINAL [facility] PAIN, Hospital UNSPECIFIED SITE 625.9 625.9 FEM 05-30-2013 [place] GENITAL [facility] SYMPTOMS Hospital NOS A08.4 VIRAL INTESTINAL INFECTION, UNSPECIFIED 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, UNCOMPLICAT ED F41.0 PANIC DISORDER WITHOUT AGORAPHOBIA J02.9 ACUTE PHARYNGITIS , UNSPECIFIED 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 , RIGHT HIP N20.0 CALCULUS OF KIDNEY O03.9 COMPLETE OR UNSP SPONTANEOUS WITHOUT COMPLICATIO N R10.9 UNSPECIFIED ABDOMINAL PAIN R31.9 HEMATURIA, UNSPECIFIED S00.93XA CONTUSION OF UNSPECIFIED PART OF HEAD, INITIAL ENCOUNTER S70.00XA CONTUSION OF UNSPECIFIED HIP, INITIAL ENCOUNTER S93.401A SPRAIN OF UNSPECIFIED LIGAMENT OF RIGHT ANKLE, INIT ENCNTR W10.8XXA FALL (ON) (FROM) OTHER STAIRS AND STEPS, INITIAL ENCOUNTER Allergies, Adverse Reactions, Alerts Type Drug Allergy Adverse Reaction to Substance Substance Reaction Severity Naproxen Unknown Unknown Medications Na ND Rx Da Fi Fi Am Da Di Ph RX Ph St me C No te ll ll ou ys ag ar # ys at rm s nt no ma ic us Or Da si cy ia de te s n re d CE 00 11 0 No FT 40 [...] ti 0 ve MG TA BL ET Vital Signs 07-08-2013 02:26 Name Value Interpretat [...] Order Detail nces retati t Range on COMPREHENSIVE METABOLIC PANEL (07-08-2013 00:55) Glucose 78 [...] 013 gm/dL ed Ser-mCn 00:55 c Albumin 1.3 UNK 1.1-1.8 complet /Glob 013 ed SerPl-m 00:55 Rto Bilirub 0.3 0.2-1.0 complet 013 mg/dL ed SerPl-m 00:55 Cnc AST 14 U/L 15-37 complet SerPl-c 013 ed Cnc 00:55 ALT 35 U/L 30-65 complet SerPl-c 013 ed Cnc 00:55 ALP 62 U/L 50-136 complet SerPl-c 013 ed Cnc 00:55 Amylase SerPl-cCnc (07-08-2013 00:55) Amylase 78 U/L 25-115 complet 013 ed SerPl-c 00:55 Cnc LIPASE (07-08-2013 00:55) LIPASE 162 U/L 73-393 complet 013 ed 00:55 CBC with AUTO DIFF (07-08-2013 00:55) WBC # 07-08-2 5.3 4.8-10. complet Bld 013 K/MM3 8 ed Auto 00:55 RBC # 07-08-2 4.56 4.2-5.4 complet Bld 013 M/mm3 ed Auto 00:55 Hgb 12-21-2 14.5 12.2-16 complet Bld-mCn 013 g/dL .2 ed c 00:55 Hct Fr 07-08-2 42.0 % 37.0-47 complet Bld 013 .0 ed 00:55 MCV RBC 21-2 92.2 fl 82.2-97 complet 013 .8 ed 00:55 MCH RBC 07-08-2 31.8 pg 27-31.2 complet Qn 013 ed Auto 00:55 MEAN 07-08-2 34.5 31.8-35 complet CORPUSC 013 g/dl .4 ed ULAR 00:55 HGB CONC RDW RBC 07-08-2 13.7 % 11.5-17 complet Auto 013 .5 ed 00:55 Platele -21-2 302 142-424 complet t Bld 013 K/mm3 ed Ql 00:55 Manual MEAN 07-08-2 7.3 fl 7.4-10. complet PLATELE 013 4 ed T 00:55 VOLUME Granulo 21-2 33.0 % 37.0-80 complet cytes 013 .0 ed Fr Bld 00:55 Auto LYMPH % -21-2 54.8 % 10-50.0 complet 013 ed 00:55 [...] KETONE 013 E mg/dL ed 14:15 URINE 11--2 1.020 1.005-1 complet SPECIFI 013 UNK .030 ed C 14:15 GRAVITY URINE 05-30-2 1+ NEG complet BLOOD 013 ed 14:15 URINE 11-12-2 7.5 UNK 5.0-8.5 complet PH 013 ed 14:15 URINE -12-2 NEGATIV NEG complet PROTEIN 013 E mg/dL ed - 14:15 DIPSTIC K URINE 05-30-2 0.2 NEG complet UROBILI 013 E.U./dL ed NOGEN - 14:15 DIPSTIC K URINE 05-30-2 NEGATIV NEG complet NITRATE 013 E ed - 14:15 DIPSTIC K URINE 05-30-2 NEGATIV NEG complet LEUK 013 E ed ESTERAS 14:15 E URINE --2 5-10 0 complet RBC 013 rbc/hpf ed 14:15 URINE 11-12-2 OCC O complet WBC 013 wbc/hpf ed 14:15 URINE 11--2 20-50 0-5 complet SQUAMOU 013 #/hpf ed S CELLS 14:15 URINE 05-30-2 1+ O complet BACTERI 013 ed A 14:15 URINE 05-30-2 1+ OCC complet MUCUS 013 ed 14:15 Encounters Encounter Start End Date Code Location Performer Type Date Emergency DIANA Diggs MD (ER) 3 02:06 3 02:26 [facility] Emergency DIANA Escobar MD (ER) 3 14:27 3 15:27 [facility]
--- OUTSIDE RECORDS SUMMARY | 2017-06-04 17:35 | External Medical Summary Rpt | CCD ---
Author Author Conduent Organization Conduent Address Unknown Phone Unavailable Purpose Continuity of Care Document - through 2016
--- OUTSIDE RECORDS SUMMARY | 2017-06-04 17:35 | External Medical Summary Rpt | CCD ---
Author Author , YE BELCHER Address Unknown Phone [email or web address] Immunization Name Date Rout CVX Reac Dose Comm Prov Is Faci e tion ent ider Refu lity Give sed n Hep 08-2 8 999 Hist H149 No H149 B, 7-20 oric ped/ 04 al adol Info rmat ion - Sour ce Unsp ecif ied Hep 05-2 8 999 Hist H149 No H149 B, 8-20 oric ped/ 04 al adol Info rmat ion - Sour ce Unsp ecif ied Td 05-2 9 999 Hist H149 No H149 (windy 8-20 oric lt), 04 al Info adso rmat rbed ion - Sour ce Unsp ecif ied Hep 08-0 8 999 Hist H134 No H134 B, 5-19 oric ped/ 97 al adol Info rmat ion - Sour ce Unsp ecif ied Talha 08-0 2 999 Hist H134 No H134 o-OP 1-19 oric V 96 al Info rmat ion - Sour ce Unsp ecif ied DTP 08-0 1 999 Hist H134 No H134 1-19 oric 96 al Info rmat ion - Sour ce Unsp ecif ied MMR 08-0 3 999 Hist H134 No H134 1-19 oric 96 al Info rmat ion - Sour ce Unsp ecif ied
--- OUTSIDE RECORDS SUMMARY | 2017-06-04 17:35 | External Medical Summary Rpt | CCD ---
Author Author , YE BELCHER Address Unknown Phone [email or web address] Immunization Name Date Rout CVX Reac Dose [...]
--- OUTSIDE RECORDS SUMMARY | 2017-06-04 17:35 | External Medical Summary Rpt | CCD ---
Author Author , YE Organization YE Address Unknown Phone [email or web address] Care Team Providers Care Petrographer Name Role Phone Mario Escobar MD, Unavailable Unavailable Mario Diggs MD, Unavailable Unavailable Maya Diggs MD Purpose Continuity of Care Document - 05-30-2013 through 2016 Problems Code Diagnosis DOS Provider Status 305.1 305.1 07-08-2013 [place] TOBACCO USE [facility] 789.00 789.00 07-08-2013 [place] ABDOMINAL [facility] [place] [facility] PAIN, Hospital UNSPECIFIED SITE 625.9 625.9 FEM 05-30-2013 [place] GENITAL [facility] [place] [facility] SYMPTOMS Hospital NOS A08.4 VIRAL INTESTINAL [...] Diggs MD (ER) 3 02:06 3 02:26 [facility] DIANA Escobar MD (ER) 3 14:27 3 15:27 [facility]
--- OUTSIDE RECORDS SUMMARY | 2017-06-04 17:36 | External Medical Summary Rpt ---
Author Author YE Soni, YE [employer] Organization YE [employer] Address Unknown Phone Unavailable Results Choriogonadotropin [Units/volume] in Serum or Plasma Observa Value Referen Units Interpr Notes Date tion ce etation Range Choriogon NEG No No No Apr 15 adotropin informati informati informati 2017 3:30 on in on in on in PM [Units/vo source source source lume] in data data data Serum or Plasma HCV RNA by PCR, Qn Rfx Norma Observa Value Referen Units Interpr Notes Date tion ce etation Range Hepatitis . IU/mL No No Mar 09 C virus informati informati 2017 2:30 RNA on in on in PM [Units/vo source source lume] data data (viral load) in Serum or Plasma by Probe & target amplifica tion method Hepatitis No No No INFCE Mar 09 C virus informati informati informati Result 2017 2:30 RNA [log on in on in on in Units: PM units/vol source source source log10 ume] data data data IU/mLUnab (viral le to load) in calculate Serum or result Plasma by since Probe & non-numer target ic amplifica resultobt tion ained for method component test. Test Comment . No No The Mar 09 Informa informa informa quantit 2017 tion: tion in tion in ative 2:30 PM source source range data data of this assay is 15 IU/mL to 100mill ion IU/mL.N ot indicat edPerfo rmed at: BN - [facility] [place] [id number] [facility], [place], [place] [address]Lab Directo r: Yariel Bauman MD, Phone: [phone] Hemoglobin A1c in Blood Observa Value Referen Units Interpr Notes Date tion ce etation Range Hemoglo 5.3 0.0 - % Normal < 6% Feb 25 bin A1c 7.0 NON-PENG 2017 in BETIC 11:00 Blood LEVEL< AM 7% CONTROL LED DIABETI C LEVEL> 8% POORLY CONTROL LED DIABETI C LEVEL Comprehensive metabolic 2000 panel in Serum or Plasma Observa Value Referen Units Interpr Notes Date tion ce etation Range Albumin/G 1.1 - 1.8 No Low No Feb 25 lobulin informati informati 2016 [Mass on in on in 11:00 AM ratio] in source source Serum or data data Plasma Albumin 3.4 - 5.0 gm/dL Normal No Feb 25 [Mass/vol informati 2016 ume] in on in 11:00 AM Serum or source Plasma data Alkaline 46 - 116 U/L Normal No Feb 25 phosphata informati 2016 se on in 11:00 AM [Enzymati source c data activity/ volume] in Serum or Plasma Bilirubin 0.2 - 1.0 mg/dL Normal No Feb 25 .total informati 2016 [Mass/vol on in 11:00 AM ume] in source Serum or data Plasma Urea 7 - 18 mg/dL Low No Feb 25 nitrogen informati 2016 [Mass/vol on in 11:00 AM ume] in source Serum or data Plasma Calcium 8.5 - mg/dL Normal No Feb 25 [Mass/vol 10.1 informati 2016 ume] in on in 11:00 AM Serum or source Plasma data Chloride 98 - 107 mmoL/L Normal No Feb 25 [Moles/vo informati 2016 lume] in on in 11:00 AM Serum or source Plasma data Carbon 21.0 - mmoL/L Normal No Feb 25 dioxide, 32.0 informati 2016 total on in 11:00 AM [Moles/vo source lume] in data Serum or Plasma Creatinin 0.55 - mg/dL Normal No Feb 25 e 1.02 informati 2016 [Mass/vol on in 11:00 AM ume] in source Serum or data Plasma Estimated 59- ML/MIN No REFERENCE Feb 25 informati RANGE: 2017 glomerula on in >60 11:00 AM r source ML/MIN/1. filtratio data 73 SQUARE n rate METERSIf (GF this patient is -A merican, then multiply theresult by 1.210. Globulin 1.3 - 3.2 gm/dL High No Feb 25 [Mass/vol informati 2017 ume] in on in 11:00 AM Serum source data Glucose 74 - 106 mg/dL Normal No Feb 25 [Mass/vol informati 2016 ume] in on in 11:00 AM Serum or source Plasma data Potassium 3.5 - 5.1 mmoL/L Normal No Feb 25 inform2016 [Moles/vo on in 11:00 AM lume] in source Serum or data Plasma Sodium 136 - 145 mmoL/L Normal No Feb 25 [Moles/vo informati 2016 lume] in on in 11:00 AM Serum or source Plasma data Aspartate 15 - 37 U/L High No Feb 252016 aminotran on in 11:00 AM sferase source [Enzymati data c activity/ volume] in Serum or Plasma Alanine 12 - 78 U/L High No Feb 25 aminotran 2016 sferase on in 11:00 AM [Enzymati source c data activity/ volume] in Serum or Plasma Protein 6.4 - 8.2 gm/dL Normal No Feb 25 [Mass/vol informati 2016 ume] in on in 11:00 AM Serum or source Plasma data Thyroxine (T4) free [Mass/volume] in Serum or Plasma Observa Value Referen Units Interpr Notes Date ti ce etation Range Thyroxine 0.76 - ng/dL Normal No Feb 25 (T4) 1.46 2016 free on in 11:00 AM [Mass/vol source ume] in data Serum or Plasma Thyrotropin [Units/volume] in Serum or Plasma Observa Value Referen Units Interpr Notes ti ce etation Range Thyrotrop 0.358 - uIU/ml Normal No Feb 25 in 3.740 2016 [Units/vo on in 11:00 AM lume] in source Serum or data Plasma CBC W Auto Differential panel in Blood Observa Value Referen Units Interpr Notes Date ti ce etation Range Basophils 0 - 0.2 K/MM3 Normal No Feb 252016 [#/volume on in 11:00 AM ] in source Blood by data Automated count Basophils 0.1 - 2.0 % Normal No Feb 25 /2016 leukocyte on in 11:00 AM s in source Blood by data Automated count Eosinophi 0.0 - 0.4 K/mm3 Normal No Feb 25 ls 2016 [#/volume on in 11:00 AM ] in source Blood by data Automated count Eosinophi 0.1 - % Normal No Feb 25 ls/100 12.0 2016 leukocyte on in 11:00 AM s in source Blood by data Automated count Granulocy 1.8 - 7.8 K/mm3 Normal No Feb 25 jorge informati 2016 [#/volume on in 11:00 AM ] in source Blood by data Automated count Granulocy 37.0 - % Normal No Feb 25 jorge/100 80.0 2016 leukocyte on in 11:00 AM s in source Blood by data Automated count Hematocri 37.0 - % Normal No Feb 25 t [Volume 47.0 ati 2016 on in 11:00 AM Fraction] source of Blood data Hemoglobi 12.2 - g/dL Normal No Feb 25 n 16.2 informati 2016 [Mass/vol on in 11:00 AM ume] in source Blood data Lymphocyt 0.7 - 4.5 K/mm3 Normal No Feb 25 es informati 2016 [#/volume on in 11:00 AM ] in source Unspecifi data ed specimen by Automated count Lymphocyt 10 - 50.0 % Normal No Feb 25 es inform2016 [#/volume on in 11:00 AM ] in source Unspecifi data ed specimen by Automated count Erythrocy 27 - 31.2 pg High No Feb 25 te mean 2016 corpuscul on in 11:00 AM ar source hemoglobi data n [Entitic mass] Erythrocy 31.8 - g/dl Normal No Feb 25 te mean 35.4 inform2016 corpuscul on in 11:00 AM ar source hemoglobi data n concentra tion [Mass/vol ume] by Automated count Erythrocy 82.2 - fl High No Feb 25 te mean 97.8 inform2016 corpuscul on in 11:00 AM ar volume source [Entitic data volume] by Automated count Monocytes 0.1 - 1.0 K/mm3 Normal No Feb 252016 [#/volume on in 11:00 AM ] in source Blood by data Automated count Monocytes 1.7 - 9.3 % High No Feb 25 /2016 leukocyte on in 11:00 AM s in source Blood by data Automated count Platelet 7.4 - fl Normal No Feb 25 mean 10.4 informati 2016 volume on in 11:00 AM [Entitic source volume] data in Blood by Automated count Platelets 142 - 424 K/mm3 Normal No Feb 25 inform2016 [#/volume on in 11:00 AM ] in source Blood data Erythrocy 4.2 - 5.4 M/mm3 Normal No Feb 25 jorge informati 2016 [#/volume on in 11:00 AM ] in source Amniotic data fluid Erythrocy 11.5 - % Normal No Feb 25 te 17.5 informati 2016 distribut on in 11:00 AM ion width source [Entitic data volume] by Automated count Leukocyte 4.8 - K/MM3 Normal No Feb 10 s 10.8 informati 2016 [#/volume on in 11:00 AM ] in source Blood data Urinalysis dipstick W Reflex Microscopic panel in Urine Observa Value Referen Units Interpr Notes Date tion ce etation Range Appeara CLEAR CLEAR No No No Jan 18 nce of informa informa informa 2016 Urine tion in tion in tion in 5:50 PM source source source data data data Bacteri 1+ O No No No Jan 18 a informa informa informa 2016 [Presen tion in tion in tion in 5:50 PM ce] in source source source Urine data data data sedimen t by Light microsc opy Bilirub NEGATIV NEG No No No Jan [...] source source Automated data data test strip Erythro OCC 0 rbc/hpf No No Jan 18 cytes informa informa 2016 [Presen tion in tion in 5:50 PM ce] in source source Urine data data sedimen t by Light microsc opy Specific 1.005 - No Normal No Jan 18 gravity 1.030 informati informati 2016 5:50 of Urine on in on in PM source source data data Epithel 3-5 0 - 5 #/hpf No No Jan 18 ial informa informa 2016 cells.s tion in tion in 5:50 PM quamous source source data data [Presen ce] in Urine sedimen t by Microsc opy high power field Urobili 0.2 NEG E.U./dL No No Jan 18 nogen informa informa 2016 [Presen tion in tion in 5:50 PM ce] in source source Urine data data by Test strip Leukocyte O wbc/hpf No No Jan 18 s informati informati 2017 5:50 [#/volume on in on in PM ] in source source Urine data data Urinalysis dipstick W Reflex Microscopic panel in Urine Observa Value Referen Units Interpr Notes Date tion ce etation Range Appeara CLEAR CLEAR No No No Jan 18 nce of informa informa informa 2017 Urine tion in tion in tion in [...] No Jan 18 of informa informa informa 2017 Urine tion in tion in tion in [...] data data KIT No No No No Augusto 14 EXPIRAT 015 informa informa informa informa 2015 [...] MAY HAVE ADVERSE PSYCHO- SOCIAL IMPACT, THE CDCRECO MMENDS RETESTI NG.\.br \This report contain s patient informa tion that must be protect ed [place] with the [facility] Ins[facility] ce Portabi lity [...] 29 ma FACTORY informa informa informa OF 2014 pallidu : SERUM tion in tion in tion in ANALYSI 11:00 m IgG source source source S: AM Ab HEMOLYZ data data data EIANORM [Presen ED AL ce] in RANGE: Serum NON-OTIS by CTIVE\. Immunoa br\This ssay report contain s patient informa tion that must be protect ed [place] with the Health Ins[facility] ce Port[place] lity [...] [Presen patient ce] in Serum informa by amrita Immunoa that ssay must be protect ed [...] data SPECIME BLOOD No No No No Augusto 7 N informa informa informa informa 2015 SOURCE [...]
--- OUTSIDE RECORDS SUMMARY | 2017-06-04 17:36 | External Medical Summary Rpt ---
Author Author YE Soni, YE [employer] Organization YE [employer] Address Unknown Phone Unavailable [...] indicat edPerfo rmed at: BN - [facility] [place] [id number] [facility], [place], [place] [address]Lab Directo r: Yariel Bauman MD, Phone: [phone] Hemoglobin A1c in Blood Observa Value Referen [...] tion that must be protect ed [place] with the Health Ins[facility] ce Port[place] lity [...] tion that must be protect ed [place] with the Health Ins[facility] ce Port[place] lity [...]
--- NOTE | 2017-06-04 18:01 | Emergency Room Report ---
History of Present Illness Time Seen by [id number] Presenting Problem in Triage Pt arrived:Walked Presenting Problem:PT REPORTS L LOWER ABD PAIN X2 DAYS, STATES PAIN WORSENED THIS MORNING, REPORTS PAINFUL URINATION. 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 N Clinical Suspician of Infection? N Mental Status: 1 - Regular (Normal Baseline) Sepsis Risk:Possible Sepsis Risk Have you (or family members/close friends) recently traveled outside the [place]? N If Yes, where/when: Have you had exposure to infectious disease within the past month? TB? Other? Specify: Dysuria, flank pain intermittently, hx of calculi, last episode one year ago; denies surgical intervention. No fever. States NSAID's make her swell and itch. 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 LMP one month ago; not using contraception. Denies vaginal d/c or bleeding today. ALLERGIES Coded Allergies: naproxen (From NAPROSYN) (Intermediate, I-ITCHING 01/18/17) ibuprofen (Mild, NA-NAUSEA/VOMITING 01/18/17) Home Medications Reported Medications Loratadine (Claritin 10MG) 10 MG PO DAILY #30 BUPROPION HCL (Bupropion HCl 75MG) 75 MG PO QHS #60 Quetiapine Fumarate 50 MG PO BID #60 HYDROCHLOROTHIAZIDE (Hydrochlorothiazide) 25 MG PO DAILY #30 History Medical History General CAD? No Angina: No VA: No Hypertension? No Hyperlipidemia? No CHF? No DVT? No PE? No COPD? No Asthma? Yes Anemia? No GERD? No Gastric ulcers? No GI Bleed? No Hernia? No Thyroid Problems? No Hypothyroidism? No CVA? No Seizures? No Diabetes? No Renal Insuffiency? No End Stage Renal Disease? No UTI? No Stones? No BPH? No GB Disease: No Nephritic Syndrome? No Asplenia? No Hepatitis? No Sickle Cell Disease? No Arthritis? No Migraines? No Cataracts? No Glaucoma? No MRSA? No HIV? No TB? No Anxiety? No Depression? No Cancer? No More? Yes Additional hx: bipolar, ptsd, schizophrenia Immunization Hx DT/Tetanus 5-10 Years Ago Surgical Hx Previous Surgery?N FISHING HAND Hx LMP 3 Weeks Ago Social History Smoking Hx Smoker: Current Every Day Smoker Tobacco: Yes Type Cigarettes Packs/day < 1 Pack Alcohol Alcohol: No Review of Systems All Other Systems Reviewed and Negative Gastrointestinal see HPI Genitourinary see HPI. Physical Exam Vital Signs Vital Signs Date Time Temp Pulse Resp B/P Pulse O2 O2 Flow FiO2 Ox Delivery Rate 06/04 1930 98.7 108 26 102/55 95 06/04 1850 18 06/04 1717 100.0 100 20 142/70 100 General Appearance normal appearance, WD/WN, mild distress Eye Exam - bilateral eye normal exam, bilateral eye PERRL, bilateral eye EOMI Neck normal inspection, non-tender, supple, full range of motion Respiratory Status Yes: trachea midline, chest symmetrical, non tender chest. No: respiratory distress, tender on palpation, use of accessory muscles, pain on inspiration, pain on expiration, productive cough, non productive cough. Lung Sounds bilateral: normal breath sounds, lungs clear. Cardiovascular normal exam, regular rate/rhythm, no peripheral edema, no gallop, no JVD, no murmur, no rub Gastrointestinal normal bowel sounds, normal exam, non tender, soft, no organomegaly, no pulsatile mass, no guarding, no rebound Back normal inspection, no CVA tenderness, no vertebral tenderness, bowel/ bladder continent Extremities normal range of motion, no calf tenderness Strength 5 Upper Ext (L), 5 Upper Ext (R), 5 Lower Ext (L), 5 Lower Ext (R) Neurologic alert, normal exam, no motor/sensory deficits, oriented x 3 Glascow Coma Scale Glascow Coma Scale Response Value EYE response: 4 Spontaneously 4 MOTOR response: 6 OBEYS 6 VERBAL response: 4 Disoriented & Converses 4 Total 14 Skin intact, normal color, warm/dry Medical Decision Making LABS/Meds/Orders Pt receiving controlled substance in ED? No Results/Orders Laboratory Tests 06/04/171846: Lactic Acid 1.9 06/04/171846: Sodium 136, Potassium 3.7, Chloride 100, Carbon Dioxide 25, BUN 10, Creatinine 1.0, Estimated Creat Clear 114, Estimated GFR (MDRD) 68, Glucose 115 H, Calcium 9.5, Total Bilirubin 0.6, AST 25, ALT 39, Alkaline Phosphatase 77, Total Protein 9.4 H, Albumin 4.1, Globulin 5.3 H, Albumin/Globulin Ratio 0.8 L 06/04/171804: WBC 23.1 *H, RBC 5.00, Hgb 15.9, Hct 45.9, MCV 91.7, RDW 12.4, Plt Count 364, MPV 7.8, Gran % 84.6 H, Gran # 19.5 H, Total Counted 100, Lymphocytes % 9.8 L , Monocytes % 5.1, Eosinophils % 0.3, Basophils % 0.3, Neutrophils 77 H, Band Neutrophils 2, Lymphocytes (Manual) 15, Lymphocytes # 2.3, Monocytes (Manual) 5, Monocytes # 1.2 H, Eosinophils # 0.1, Basophils # 0.1, Metamyelocytes 1, Platelet Estimate NORMAL, PUBS MCHC 34.6, MCH 31.8 H, Urine Color YELLOW, Urine Appearance CLOUDY, Urine pH 6.0, Ur Specific Avery 1.020, Urine Protein 2+ H, Urine Ketones NEGATIVE, Urine Blood 2+ H, Urine Nitrate POSITIVE H, Urine Bilirubin NEGATIVE, Urine Urobilinogen 0.2, Ur Leukocyte Esterase 2+ H, Urine RBC OCC, Urine WBC TNTC, Ur Squamous Epith Cells 3-5, Urine Bacteria 3+, Urine Glucose NEGATIVE Current Medication Orders Sig/Dennis Start time Last Medication Dose Route Stop Time Status Admin Morphine Sulfate 0 .STK-MED ONE 06/04 2014 DC .ROUTE Acetaminophen 0 .STK-MED ONE 06/04 1847 DC PO Ceftriaxone Sodium 0 .STK-MED ONE 06/04 1847 DC IV Sodium Chloride 50 ML .STK-MED ONE 06/04 1847 DC IV Acetaminophen 650 MG ONCE ONE 06/04 1845 DC 06/04 PO 06/04 1846 184 Ceftriaxone Sodium 1 GM ONCE ONE 06/04 1845 DC 06/04 Sodium Chloride 50 ML IV 06/04 191 1850 Morphine Sulfate 0 .STK-MED ONE 06/04 1845 DC .ROUTE Morphine Sulfate 4 MG ONCE ONE 06/04 1830 DC 06/04 IV 06/04 183 1850 Ondansetron HCl 4 MG ONCE ONE 06/04 1815 DC 06/04 IV 06/04 1816 180 Ondansetron HCl 0 .STK-MED ONE 06/04 1807 DC .ROUTE Sodium Chloride 1,000 ML .STK-MED ONE 06/04 1807 DC IV Sodium Chloride 1,000 ML .Q1H1M 06/04 1800 DC 06/04 IV 06/04 1900 1809 Sodium Chloride 10 ML PRN PRN 06/04 1800 AC IV 06/05 1800 Sodium Chloride 10 ML PRN PRN 06/04 1730 AC IV 06/05 1725 Orders Procedure Date/time Status DIET-NOTHING BY MOUTH 06/05 B Active CULTURE, BLOOD 06/04 1830 Active LACTIC ACID 06/04 1830 Complete CULTURE, URINE 06/04 1805 Active DIFFERENTIAL-WBC 06/[address] ABD/PELVIS REQ 06/04 1725 Active IV SALINE LOCK 06/04 1725 Active CBC WITH AUTO DIFF 06/04 1725 Complete CHEM 12 PROFILE 06/04 1725 Complete URINALYSIS/COMPLETE 06/04 1724 Complete URINE 06/[address] ABD & PELVIS W/O CONTRAST 06/04 UNK Active XRAY/CT/US XRAY/CT/US XRAY abdomen, pelvis CT abdomen CT interpretation by reviewed by me ([facility]AD report reviewed) Time results known: 1945 CT Results abnormal, nephrolithiasis 3.5 mm at UVJ w/ hydro and stranding of the periureteral and perinephric fat Consult MD Physician Consult Time Called 194 Reason Urology eval/care Comments Urology paged. Has nephrolithiasis plus UTI and significantly elevated WBC. Progress ED Progress Notes 1 Date 06/04/17 Time [address] scan ED Progress Notes 2 Date 06/04/17 Time 1947 Comment Pain controlled s/p morphine sulfate; receiving Rocephin IV. Departure Departure Time of Disposition 1999 Disposition DC/XFER from ER to [facility] Clinical Impression Primary Impression: Hydronephrosis with renal and ureteral calculous obstruction Secondary Impressions: Elevated WBC count, Urinary tract infection Condition STABLE Referrals [facility] (Family) ED Critical Care Critical Care No at 2017
[2017-06-04 18:25] LABS: HEMOGLOBIN 15.9 g/dL (12.2-16.2); LYMPH # 2.3 K/mm3 (0.7-4.5); LYMPH % 9.8 % (10-50.0)
[2017-06-04 18:26] LABS: URINE BILIRUBIN - DIPSTICK NEGATIVE (NEG); URINE BLOOD 2+ (NEG)
[2017-06-04 19:11] LABS: NEUTROPHILS 77 % (42-76)
[2017-06-04 20:25] VITALS: BP 102/55
--- NOTE | 2017-06-05 11:14 | RADIOLOGY REPORT PS360 ---
CT ABD PELVIS W/O CONTRAST HISTORY: ABD PAINleft flank pain. HISTORY of kidney stones. Patient Age: 26 years: Female Ordering Physician: Linda Willams MD TECHNIQUE: Helical CT scanning through abdomen and pelvis with no oral nor IV contrast utilized COMPARISON :08/05/2014 CT abdomen pelvis FINDINGS Lung bases. Stable calcified granuloma peripheral left lung base up to 1 cm diameter. Small pleural-based density at the posterior left base axial image 2.. In a 26-year-old this likely reflects minimal old scarring or granulomatous disease & doubt of significance otherwise. Abdomen pelvis. Lack of oral and IV contrast decreases sensitivity. Noncontrast images of the liver, spleen, pancreas, adrenals appears satisfactory. Gallbladder unremarkable. No biliary ductal dilatation. TRACT LEFT KIDNEY. Only scant hydronephrosis... More evident is the minimal dilatation of entire left ureter down to the left UVJ. Mild hazy appearance of the periureteral fat and about the proximal left ureter & left renal pelvis which may which in this case could reflect urinary tract infection with inflammation and mild wall thickening of the proximal left ureter.. However Distal urinary tract obstruction could yield this appearance also.. Requires correlation urinalysis and other features.. [facility] described a 3.5 mm calculus distal most left ureter at UVJ on axial image 108.- This calcification is not seen on 2015 study. However it is quite inferior position relative to the bladder- Lower than typically seen for ureteral insertion-& thus question that it may merely small stone in the posterior aspect of debris-filled bladder or a phlebolith.. Reviewing the patient's history no significant significant urinary tract infection, possibly along with a recently passed stone, suspect accounts for the inflamed thickened wall appearance of the proximal the proximal left ureter. Also note nonobstructive left renal calculus.. 3 mm nonobstructive calculus at lower pole left kidney axial & coronal image 43. Right kidney unremarkable. No calculi nor obstruction. PELVIS. Urinary bladder. Question some mild wall thickening and possible layering debris at dependent inferior/posterior aspect of urinary bladder-possibly could reflect urinary tract infection of cystitis?. Retroverted retroflexed Uterus appears normal size. No significant free fluid in cul-de-sac Left adnexa. Left ovary appears normal size 3.3 cm in length & with likely 1.7 cm left ovary cyst . Right ovary appears slightly enlarged be difficult to delineate but appears to measure 4.5 cm maximum AP & and contains a over 3 cm cyst. Consider pelvic ultrasound to further evaluate. Slightly larger appearance to the ovary than on 2015 study. . GI TRACT. Appendix normal. Moderate stool throughout right colon with moderate gas an stool transverse colon but no bowel dilatation or obstruction.. Stomach & Small bowel unremarkable. . There is a slightly hazy appearance with scattered small moderate-sized nodes at the left periaortic region. These may in part reflect some inflammatory changes associated with the slightly thickened proximal left ureter is nodes are slightly more evident than on 2015 study2 IMPRESSION ......... 1... Hazy appearance about the proximal left ureter & left renal pelvis with wall thickening at the proximal left ureter.. Left ureter is mildly dilated entire course OnlyScant left pelvicalyceal dilatation. In reviewing this patient's ER note & history, 10 2 suspect current findings are mainly due to severe UTI with inflammation of the proximal left ureter at this point & possibly developing pyelonephritis. There is a 3.5 mm calcification far inferior left pelvic basin. This may reflect a recently passed stone residing along with debris at the posterior aspect of urinary bladder. (vs phlebolith ). Typically UVJ insertion is slightly more superior best tend to doubt distal ureteral stone. . 2. Mildly enlarged right ovary. Measured over 4.5 cm & containing likely a [address] Consider follow-up pelvic ultrasound. No significant fluid in cul-de-sac
== END 2017-06-04 20:26 | disposition short-term general hospital (02) ==
LOC: ER 17:08
PROVIDERS: Emergency Medicine
DX: N13.2 Hydronephrosis with renal and ureteral calculous obstruction (principal); Z87.442 Personal history of urinary calculi; J45.909 Unspecified asthma, uncomplicated; F17.210 Nicotine dependence, cigarettes, uncomplicated
CPT/HCPCS: J2405

== ENCOUNTER 2017-06-26 14:18 | Emergency (ER) | payer MEDICAID ==
[~2017-06-26] VITALS: Ht 157.5 cm; Wt 74.8 kg
[~2017-06-26 14:18] MED LIST changes: +HYDROCHLOROTHIA25 M1 PO
--- OUTSIDE RECORDS SUMMARY | 2017-06-26 14:33 | External Medical Summary Rpt | CCD ---
Author Author , YE BELCHER Address Unknown Phone [email or web address] Care Team Providers Care Staff Editor Name Role Phone Mario Escobar MD, Unavailable Unavailable Mario Escobar MD [facility], Unavailable Unavailable [facility] # Unavailable Unavailable [id number], [facility] # [id number] Maya Diggs MD, Unavailable Unavailable Maya Diggs MD [facility] # Unavailable Unavailable [id number], [facility] # [id number] Purpose Continuity of Care Document - 09-27-2009 through 2016 Problems Code Diagnosis DOS Provider Status F17.210 Nicotine 06-08-2017 dependence, cigarettes, uncomplicat ed F31.9 Bipolar 06-08-2017 disorder, unspecified F43.10 Post-trauma 06-08-2017 tic stress disorder, unspecified N13.2 Hydronephro 06-08-2017 sis with renal and ureteral calculous obstruction N39.0 Urinary 06-08-2017 tract infection, site not specified R00.0 Tachycardia 06-08-2017 , unspecified R11.2 Nausea with 06-08-2017 vomiting, unspecified R30.0 Dysuria 06-08-2017 R53.81 Other 06-08-2017 malaise 305.1 305.1 07-08-2013 [place] TOBACCO USE [facility] 789.00 789.00 07-08-2013 [place] ABDOMINAL [facility] PAIN, Hospital UNSPECIFIED SITE 625.9 625.9 FEM 05-30-2013 [place] GENITAL [facility] SYMPTOMS Hospital NOS A08.4 VIRAL INTESTINAL INFECTION, UNSPECIFIED D72.829 ELEVATED WHITE BLOOD CELL COUNT, UNSPECIFIED 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, [...] .5 -1 5- 20 MG NE 00 02 04 5 30 30 HO 60 KN Ac XI 18 -2 -2 .0 ME 13 IG ti UM 65 3- 0- 00 TO 49 HT ve 04 [address] 03 11 11 SHAWN 1 PH EL 40 AR A MA MG CY CA PS UL E 00 12 04 5 9. 30 HO 60 BA Ac 17 -2 -2 00 ME 10 LB ti 30 9- 0- 0 TO 76 AU ve 75 20 20 WN 0 GH 00 10 [address] BLU EW CY P FL 68 04 04 1 30 15 [...] DR BLU EW CY P NE 00 02 03 [...] CE 5 PH RO TA AR BE WA MA RT NO CY W PH N [...] MA MG CY CA PS UL E AM 00 02 02 0 15 5 HO 60 HE Ac OX 78 -2 -2 .0 ME 13 ND ti IC 12 2- 2- 00 TO 22 ER ve IL 61 20 20 WN 9 SO LI 30 11 11 N N 5 PH RO 50 AR BE 0 MA RT MG CY W CA PS UL E ME 00 02 02 0 21 6 HO 60 HE Ac TH 60 -2 -2 .0 ME 13 ND ti YL 34 2- 2- 00 TO 22 ER ve MO 59 20 20 WN 8 SO ED 31 11 11 N NI 5 PH RO SO AR BE LO MA RT NE CY W 4 MG DO SE PK EN 60 02 02 0 20 3 HO 20 HE Ac DO 95 -2 -2 .0 ME 03 ND ti CE 10 2- 2- 00 TO 14 ER ve T 60 20 20 WN 7 SO 5- 28 11 11 N 32 5 PH RO 5 AR BE TA MA RT BL CY W ET CL 00 02 02 0 20 5 HO 60 HE Ac IN 59 -2 -2 .0 ME 13 ND ti DA 15 1- 1- 00 TO 18 ER ve MY 70 20 20 WN 9 SO CI 80 11 11 N N 1 PH RO HC AR BE L MA RT 15 CY W 0 MG CA PS UL E 00 02 02 0 15 2 HO 40 HE Ac 59 -2 -2 .0 ME 04 ND ti 10 1- 1- TO 34 ER ve 38 20 20 [...] RO AR BE MA RT CY W PO 00 12 02 6 10 30 [...] CY OL 33 50 PO WD 00 11 12 1 9. 30 HO 60 BA Ac 17 -0 -0 00 ME 08 LB ti 30 3- 1- 0 TO 48 AU ve 75 20 20 WN 5 GH 00 10 [address] BLU EW CY P TR 50 12 12 0 60 30 HO 60 AL Ac AZ 11 -0 -0 .0 ME 09 I ti OD 10 1- 1- 00 TO 60 RI ve ON 43 20 20 WN 5 ZW E 30 10 10 AN 50 2 PH AR MG MA CY TA BL ET 49 12 12 0 45 30 HO 60 AL Ac 88 -0 -0 .0 ME 09 I ti 40 1- 1- 00 TO 60 RI ve 73 20 20 WN 4 ZW 40 10 10 AN 1 PH AR MA CY NE 00 09 11 5 30 30 [...] DR HURT EW CY P NE 00 09 11 5 [...] MA K CY K TA BL ET 49 10 10 0 45 15 HO 60 LA Ac 88 -1 -1 .0 ME 07 KH ti 40 8- 8- 00 TO 84 IA ve 73 20 20 WN 9 NI 40 10 10 1 PH AR HO MA K CY K DI 00 10 10 2 2. 20 [...] IN [address] 25 MA EW 0 CY P MG TA BL ET 00 10 10 0 9. 30 HO 60 BA Ac 17 -0 -0 00 ME 07 LB ti 30 6- 6- 0 TO 42 AU ve 75 20 20 WN 9 GH 00 10 [address] BLU MARY P NE 00 09 10 5 30 30 HO 60 KN Ac XI 18 -0 -0 .0 ME 06 IG ti UM 65 7- 4- 00 TO 33 HT ve 04 [address] 03 10 10 SHAWN 1 PH EL 40 AR A MA MG CY CA PS UL E IB 55 08 09 1 90 30 HO 60 KN Ac UP 11 -2 -1 .0 ME 05 IG ti RO 10 0- 7- 00 TO 75 HT ve FE 68 20 20 WN 4 N 40 10 10 SHAWN 80 5 PH EL 0 AR A MG MA CY TA BL ET NA 68 08 09 1 60 30 HO 60 KN Ac MO 46 -2 -1 .0 ME 05 IG [...] AR RA 05 MA L % CY IB 55 08 08 1 90 30 HO 60 KN Ac UP 11 -2 -2 .0 ME 05 IG ti RO 10 0- 0- 00 TO 75 HT ve FE 68 20 20 WN 4 N 40 10 10 SHAWN 80 5 PH EL 0 AR A MG MA CY TA BL ET NA 68 08 08 1 60 30 HO 60 KN Ac MO 46 -2 -2 .0 ME 05 IG ti OX 20 0- 0- 00 TO 75 HT ve EN 19 20 20 WN 2 00 10 10 SHAWN 50 5 PH EL 0 AR A MG MA CY TA BL ET MO 00 08 08 0 30 10 HO 60 KN Ac OM 59 -2 -2 .0 ME 05 IG ti ET 15 0- 0- 00 TO 75 HT ve ONEILL 30 20 20 WN 1 ZI 71 10 10 SHAWN NE 0 PH EL AR A 25 MA CY MG TA BL ET NE 00 02 08 [...] MA MG CY CA PS UL E AC 00 06 06 0 9. 3 HO 40 KN Ac ET 60 -1 -1 00 ME 01 IG ti AM 32 6- 6- 0 TO 83 HT ve IN 33 20 20 WN 1 OP 83 10 10 SHAWN HE 2 PH EL N- AR A CO MA D CY #3 TA BL ET MONTES 53 06 06 0 20 10 HO 60 BA Ac LF 48 -1 -1 .0 ME 03 LB ti AM 90 6- 6- 00 TO 96 AU ve ET 14 20 20 WN 9 GH HO 60 10 10 XA [address] LE MA EW -T CY P MP DS TA BL ET NE 00 02 06 [...] 4 PH EL AR A MA CY PE 00 03 03 0 59 1 KR 64 KN Ac RM 47 -1 -1 .0 OG 16 IG ti ET 25 2- 2- 00 ER 91 HT ve HR 24 20 20 1 IN 26 10 10 PH SHAWN 7 AR EL 1% MA A CY LO # TI ON 24 70 9 50 03 03 0 30 10 KR 64 KN Ac 11 -1 -1 .0 OG 16 IG ti 10 2- 2- 00 ER 91 HT ve 30 20 20 0 80 10 10 PH SHAWN 1 AR EL MA A CY # 24 70 9 Vital Signs 07-08-2013 02:26 Name Value Interpretat [...] Order Detail nces retati t Range on Antibiotic sensitivity studies (06-06-2017 06:08) Trimeth 11-19-2 >= 320 complet oprim/s 017 ug/ml ed ulfamet 06:08 hoxazol e suscept ibility test by minimum inhibit ory concent ration Ampicil 06-06-2 = 16 complet otilio/sul 017 ug/ml ed bactam 06:08 suscept ibility test by minimum inhibit ory concent ration Levoflo 19-2 <= 0.12 complet xacin 017 ug/ml ed suscept 06:08 ibility test by minimum inhibit ory concent ration Imipene 19-2 <= 0.25 complet m 017 ug/ml ed suscept 06:08 ibility test by minimum inhibit ory concent ration Gentami 19-2 <= 1 complet abel 017 ug/ml ed suscept 06:08 ibility test by minimum inhibit ory concent ration Nitrofu 19-2 <= 16 complet rantoin 017 ug/ml ed 06:08 suscept ibility test by minimum inhibit ory concent ration Cefepim 19-2 <= 1 complet e 017 ug/ml ed suscept 06:08 ibility test by minimum inhibit ory concent ration Ertapen 19-2 <= 0.5 complet em 017 ug/ml ed suscept 06:08 ibility test by minimum inhibit ory concent ration Extende 06-06-2 = ug/ml complet d 017 ed spectru 06:08 m beta lactama se (ESBL) produci ng bacteri a suscept ibility test by minimum inhibit ory Cefazol -19-2 <= 4 complet in 017 ug/ml ed suscept 06:08 ibility test by minimum inhibit ory concent ration Ceftria 19-2 <= 1 complet xone 017 ug/ml ed suscept 06:08 ibility test by minimum inhibit ory concent ration Ceftazi -19-2 <= 1 complet dime/po 017 ug/ml ed tassium 06:08 clavula norman suscept ibility test by minimum inhibit ory concent ration Amoxici = 8 complet llin/cl 017 ug/ml ed avulana 06:08 te suscept ibility test by minimum inhibit ory concent ration Piperac <= 4 complet illin/t 017 ug/ml ed azobact 06:08 am suscept ibility test by minimum inhibit ory concent ration Tobramy <= 1 complet abel 017 ug/ml ed suscept 06:08 ibility test by minimum inhibit ory concent ration Ampicil >= 32 complet otilio 017 ug/ml ed suscept 06:08 ibility test by minimum inhibit ory concent ration Bacteria Ur Cult (06-05-2017 06:31) Bacteri [id number] complet a XXX 017 06 No ed Anaerob 06:31 growth e+Aerob (qualif e Cult ier value) SCT NG1 NO GROWTH DAY 1. L CC XXX NOTAP complet VC-aCnc 017 NOT ed 06:31 APPLICA BLE L SPECIME URNG complet N 017 SEYMOUR ed CONTAIN 06:31 TOP ER COLLECT INFO: ION TUBE FOR URINE L Blood lactic acid measurement (moles/vol (06-04-2017 18:47) Blood = 1.9 0.4-2.0 complet lactic 017 mmol/L ed acid 18:47 measure ment (moles/ vol Comprehensive metabolic panel (06-04-2017 18:47) ALT = 39 12-78 complet (SGPT) 017 U/L ed ser/shant 18:47 s Serum = 25 15-37 complet or 017 U/L ed plasma 18:47 asparta te aminotr ansfera Serum = 136 136-145 complet sodium 017 mmoL/L ed measure 18:47 ment Serum = 3.7 3.5-5.1 complet potassi 017 mmoL/L ed um 18:47 measure ment Serum = 115 74-106 complet or 017 mg/dL ed plasma 18:47 glucose measure ment (mas Serum = 5.3 1.3-3.2 complet globuli 017 gm/dL ed n 18:47 measure ment (mass/v olume) Estimat = 68 59- complet ed 017 ML/MIN ed glomeru 18:47 lar filtrat ion rate (GF Estimat = 114 50-200 complet ion of 017 ML/MIN ed creatin 18:47 ine renal clearan ce Serum = 1.0 0.55-1. complet or 017 mg/dL 02 ed plasma 18:47 creatin ine measure ment ( Carbon = 25 21.0-32 complet dioxide 017 mmoL/L .0 ed 18:47 measure ment Serum = 100 98-107 complet or 017 mmoL/L ed plasma 18:47 chlorid e measure ment (mo Serum = 9.5 8.5-10. complet or 017 mg/dL 1 ed plasma 18:47 calcium measure ment (mas Serum = 10 7-18 complet or 017 mg/dL ed plasma 18:47 urea nitroge n measure men Serum = 0.6 0.2-1.0 complet or 017 mg/dL ed plasma 18:47 total bilirub in measure m Serum = 77 46-116 complet or 017 U/L ed plasma 18:47 alkalin e phospha tase sarina Serum = 4.1 3.4-5.0 complet or 017 gm/dL ed plasma 18:47 albumin measure ment (mas Serum = 0.8 1.1-1.8 complet or 017 ed plasma 18:47 albumin /globul in mass ra Protein = 9.4 6.4-8.2 complet total 017 gm/dL ed ser/shant 18:47 s Urinalysis with microscopy (06-04-2017 18:05) Urine 0.2 0.2 NEG complet urobili 017 L ed nogen 18:05 E.U./dL detecti on by test str Urine = 1.020 1.005-1 complet specifi 017 .030 ed c 18:05 gravity measure ment Urine 2 + NEG complet protein 017 mg/dL ed 18:05 measure ment by automat ed t Urine = 6.0 5.0-8.5 complet pH 017 ed 18:05 Urine POSITIV NEG complet nitrite 017 E ed 18:05 POSITIV detecti E L on by test strip Mucus 2+ 2+ L NEG complet detecti 017 ed on in 18:05 urine sedimen t by lig Urine NEGATIV NEG complet ketones 017 E ed 18:05 NEGATIV detecti E L on by mg/dL automat ed jorge Glucose = NEG complet ur 017 NEGATIV ed test 18:05 E strip Urine YELLOW YELLOW complet color 017 YELLOW ed 18:05 L Urine 2+ 2+ L NEG complet blood 017 ed detecti 18:05 on Urine NEGATIV NEG complet total 017 E ed bilirub 18:05 NEGATIV in E L detecti on by test Urine CLOUDY CLEAR complet appeara 017 CLOUDY ed nce 18:05 L determi nation Urine culture (06-04-2017 18:05) Urine [id number] complet culture 017 07 ed 18:05 Escheri segun coli SCT EC ESCHERI SEGUN COLI L Differential panel, method unspecified - (06-04-2017 18:05) Blood = 100 complet total 017 #CELLS ed cell 18:05 count Neutrop = 77 % 42-76 complet hil 017 ed count 18:05 Platele NORMAL complet t 017 NORMAL ed estimat 18:05 L e Monocyt = 5 % 2-9 complet e % 017 ed 18:05 Manual = 1 % 0-1 complet blood 017 ed metamye 18:05 locytes /100 leukocy t LYMPH 15 % 10-50 complet 017 ed 18:05 Automat = 2 % 0-8 complet ed 017 ed blood 18:05 band neutrop hil percent a CBC w auto diff (06-04-2017 18:05) Blood = 23.1 4.8-10. complet leukocy 017 K/MM3 8 ed jorge 18:05 count (number /volume ) Automat = 12.4 11.5-17 complet ed 017 % .5 ed erythro 18:05 cyte distrib ution width Red = 5.00 4.2-5.4 complet blood 017 M/mm3 ed cell 18:05 count Blood = 364 142-424 complet platele 017 K/mm3 ed t count 18:05 Automat = 7.8 7.4-10. complet ed 017 fl 4 ed blood 18:05 platele t mean volume sarina [place] % = 5.1 % 1.7-9.3 complet 017 ed 18:05 Absolut = 1.2 0.1-1.0 complet e 017 K/mm3 ed monocyt 18:05 e count Automat = 91.7 82.2-97 complet ed 017 fl .8 ed erythro 18:05 cyte mean corpusc ular v Automat = 34.6 31.8-35 complet ed 017 g/dl .4 ed erythro 18:05 cyte mean corpusc ular h Mean = 31.8 27-31.2 complet corpusc 017 pg ed ular 18:05 hemoglo bin (MCH) determ Lymphoc = 9.8 % 10-50.0 complet yte 017 ed count, 18:05 blood, automat ed Absolut = 2.3 0.7-4.5 complet e 017 K/mm3 ed lymphoc 18:05 yte count Blood = 15.9 12.2-16 complet hemoglo 017 g/dL .2 ed bin 18:05 measure ment (mass/v olum Blood = 45.9 37.0-47 complet hematoc 017 % .0 ed rit 18:05 (volume fractio n) Granulo = 84.6 37.0-80 complet cyte 017 % .0 ed percent 18:05 age Blood = 19.5 1.8-7.8 complet granulo 017 K/mm3 ed cytes 18:05 automat ed count (numb Automat = 0.3 % 0.1-12. complet ed 017 0 ed blood 18:05 eosinop hils/10 0 leukocy t Automat = 0.1 0.0-0.4 complet ed 017 K/mm3 ed blood 18:05 eosinop hil count Baso % = 0.3 % 0.1-2.0 complet 017 ed 18:05 Automat = 0.1 0-0.2 complet ed 017 K/MM3 ed blood 18:05 basophi l count (count/ vo Urine test (06-04-2017 18:05) Urine = NEG complet pregnan 017 NEGATIV ed cy test 18:05 E COMPREHENSIVE METABOLIC PANEL (07-08-2013 00:55) Glucose 78 [...] 013 gm/dL ed Ser-mCn 00:55 c Albumin 21-2 1.3 UNK 1.1-1.8 complet /Glob 013 ed [...] SerPl-c 00:55 Cnc LIPASE (07-08-2013 00:55) LIPASE 07-08-2 162 U/L 73-393 complet 013 ed 00:55 CBC with AUTO DIFF (07-08-2013 00:55) WBC # 21-2 5.3 4.8-10. complet Bld 013 K/MM3 8 ed Auto 00:55 RBC # 21-2 4.56 4.2-5.4 complet Bld 013 M/mm3 ed Auto 00:55 Hgb -21-2 14.5 12.2-16 complet Bld-mCn 013 g/dL .2 ed c 00:55 Hct Fr 07-08-2 42.0 % 37.0-47 complet Bld 013 .0 ed 00:55 MCV RBC 07-08-2 92.2 fl 82.2-97 complet 013 .8 ed 00:55 MCH RBC 07-08-2 31.8 pg 27-31.2 complet Qn 013 ed Auto 00:55 MEAN 07-08-2 34.5 31.8-35 complet CORPUSC 013 g/dl .4 ed ULAR 00:55 HGB CONC RDW RBC -21-2 13.7 % 11.5-17 complet Auto 013 .5 ed 00:55 Platele 12-21-2 302 142-424 complet t Bld 013 K/mm3 ed Ql 00:55 Manual MEAN 12-21-2 7.3 fl 7.4-10. complet PLATELE 013 4 [...] complet WBC 013 wbc/hpf ed 14:15 URINE 20-50 0-5 complet SQUAMOU 013 #/hpf ed S CELLS 14:15 URINE 1+ O complet BACTERI 013 ed A 14:15 URINE 1+ OCC complet MUCUS 013 ed 14:15 Encounters Encounter Start End Date Code Location Performer Type Date Emergency DIANA Diggs MD (ER) 3 02:06 3 02:26 [facility] Emergency DIANA Escobar MD (ER) 3 14:27 3 15:27 [facility]
--- OUTSIDE RECORDS SUMMARY | 2017-06-26 14:33 | External Medical Summary Rpt | CCD ---
Author Author , YE BELCHER Address Unknown Phone [email or web address] Care Team Providers Care Billing Checker Name Role Phone Mario Escobar MD, Unavailable Unavailable Mario Escobar MD [facility], Unavailable Unavailable [facility] # Unavailable Unavailable [id number], [facility] # [id number] Maya Diggs MD, Unavailable Unavailable Maya Diggs MD [facility] # Unavailable Unavailable [id number], [facility] # [id number] Purpose Continuity of Care Document - 09-27-2009 [...] R53.81 Other 06-08-2017 [place]ise 305.1 305.1 07-08-2013 [place] TOBACCO USE [facility] 789.00 789.00 07-08-2013 [place] ABDOMINAL [facility] PAIN, Hospital UNSPECIFIED SITE 625.9 625.9 FEM 05-30-2013 [place] GENITAL [facility] SYMPTOMS Hospital NOS A08.4 VIRAL [...] CE 5 PH RO TA AR BE TX MA RT NO CY W PH N [...] 2- 2- 00 TO 22 ER ve MS 59 20 20 WN 8 SO ED [...] 1 60 30 HO 60 KN Ac MS 46 -2 -1 .0 ME 05 IG [...] 1 60 30 HO 60 KN Ac MS 46 -2 -2 .0 ME 05 IG ti OX 20 0- 0- 00 TO 75 HT ve EN 19 20 20 WN 2 00 10 10 SHAWN 50 5 PH EL 0 AR A MG MA CY TA BL ET MS 00 08 08 0 30 10 HO [...] ration Bacteria Ur Cult (06-05-2017 06:31) Bacteri [id number] complet a XXX 017 06 No ed [...] determi nation Urine culture (06-04-2017 18:05) Urine [id number] complet culture 017 07 ed 18:05 Escheri [...] blood 18:05 platele t mean volume sarina Dawson % = 5.1 % 1.7-9.3 complet 017 [...] Diggs MD (ER) 3 02:06 3 02:26 [facility] Emergency DIANA Escobar MD (ER) 3 14:27 3 15:27 [facility]
[2017-06-26 14:34] LABS: URINE BILIRUBIN - DIPSTICK NEGATIVE (NEG); URINE BLOOD 1+ (NEG)
[2017-06-26 14:36] LABS: LYMPH # 3.2 K/mm3 (0.7-4.5); LYMPH % 16.7 % (10-50.0)
--- OUTSIDE RECORDS SUMMARY | 2017-06-26 14:36 | External Medical Summary Rpt | CCD ---
Author Author , YE BELCHER Address Unknown Phone [email or web address] Immunization Name Date Rout CVX Reac Dose [...] 999 Hist H134 No H134 B, 5-19 ori ped/ 97 al adol Info rmat ion [...]
--- OUTSIDE RECORDS SUMMARY | 2017-06-26 14:36 | External Medical Summary Rpt | CCD ---
Author Author , YE BELCHER Address Unknown Phone [email or web address] Immunization Name Date Rout CVX Reac Dose [...]
--- OUTSIDE RECORDS SUMMARY | 2017-06-26 14:36 | External Medical Summary Rpt | CCD ---
Demographics Preferred Language Setswana Marital Status Unknown Roman Catholic Affiliation Unknown Race Unknown Ethnic Group Unknown Author Author , YE BELCHER Address Unknown Phone [email or web address] Care Team Providers Care Commercial Real Estate Appraiser Name Role Phone [facility], Unavailable Unavailable [facility] # Unavailable Unavailable [id number], [email or web address] # [id number] [facility] # Unavailable Unavailable [id number], [facility] # [id number] Purpose Continuity of Care Document - 09-27-2009 through 2016 Medications Na ND Rx Da Fi Fi Am Da Di Ph RX Ph St me C No te ll ll ou ys ag ar # ys at rm s nt no ma ic us Or Da si cy ia de te s n re d DI 00 03 04 1 2. 20 [...] PH AN AR N MA E CY NE 00 02 03 5 30 30 HO 60 KN Ac XI 18 -2 -2 .0 ME 13 IG ti UM 65 3- 3- 00 TO 49 HT ve 04 [address] 03 11 11 SHAWN 1 PH EL 40 AR A MA MG CY CA PS UL E 00 12 03 5 9. 30 HO 60 BA Ac 17 -2 -2 00 ME 10 LB ti 30 9- 3- 0 TO 76 AU ve 75 20 20 WN 0 GH 00 10 [address] MA EW CY P DI 00 03 03 1 2. 20 [...] CE 5 PH RO TA AR BE VA MA RT NO CY W PH N [...] AN AR DR BLU PATE CY P 49 12 12 0 45 30 HO 60 AL Ac 88 -0 -0 .0 ME 09 I ti 40 1- 1- 00 TO 60 RI ve 73 20 20 WN 4 ZW 40 10 10 AN 1 PH AR MA CY TR 50 12 12 0 60 30 HO 60 AL Ac AZ 11 -0 -0 .0 ME 09 I ti OD 10 1- 1- 00 TO 60 RI ve ON 43 20 20 WN 5 ZW E 30 10 10 AN 50 2 PH AR MG MA CY TA BL ET NE 00 09 11 5 30 30 [...] 00 10 10 0 PH AN AR BLU PATE CY P NE 00 09 [...] 10 [address] LBU PATE CY P NE 00 09 10 [...]
--- OUTSIDE RECORDS SUMMARY | 2017-06-26 14:36 | External Medical Summary Rpt | CCD ---
Demographics Preferred Language Syriac Marital Status Unknown Christian Affiliation Unknown Race Unknown Ethnic Group Unknown Author Author , YE BELCHER Address Unknown Phone [email or web address] Care Team Providers Care Mail Agent Name Role Phone [facility], Unavailable Unavailable [facility] # Unavailable Unavailable [id number], [facility] # [id number] [facility] # Unavailable Unavailable [phone], [facility] # [id number] Purpose Continuity of Care Document - 09-27-2009 [...] CE 5 PH RO TA AR BE VT MA RT NO CY W PH N [...] 2- 2- 00 TO 22 ER ve IA 59 20 20 WN 8 SO ED [...] 1 60 30 HO 60 KN Ac IA 46 -2 -1 .0 ME 05 IG [...] AR RA 05 MA L % CY IA 00 08 08 0 30 10 HO 60 KN Ac OM 59 -2 -2 .0 ME 05 IG ti ET 15 0- 0- 00 TO 75 HT ve ONEILL 30 20 20 WN 1 ZI 71 10 10 SHAWN NE 0 PH EL AR A 25 MA CY MG TA BL ET NA 68 08 08 1 60 30 HO 60 KN Ac IA 46 -2 -2 .0 ME 05 IG [...]
[2017-06-26 14:37] LABS: HEMOGLOBIN 13.8 g/dL (12.2-16.2)
--- NOTE | 2017-06-26 14:48 | Emergency Room Report ---
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 N Clinical Suspician of Infection? N Mental Status: 1 - Regular (Normal Baseline) Sepsis Risk:Possible Sepsis Risk Have you (or family members/close friends) recently traveled outside the [place]? N If Yes, where/when: Have you had exposure to infectious disease within the past month? N TB? Other? Specify: R flank pain, s/p stent placement at for large ureteral stone, approximately two weeks ago. Reports fever last night and dry heaves. Intense pain on right. LMP two weeks ago. Last Percocet was about five days ago. ALLERGIES Coded Allergies: naproxen (From NAPROSYN) (Intermediate, I-ITCHING 01/18/17) ibuprofen (Mild, NA-NAUSEA/VOMITING 01/18/17) Home Medications Reported Medications Loratadine (Claritin 10MG) 10 MG PO DAILY #30 BUPROPION HCL (Bupropion HCl 75MG) 75 MG PO QHS #60 Quetiapine Fumarate 50 MG PO BID #60 HYDROCHLOROTHIAZIDE (Hydrochlorothiazide) 25 MG PO DAILY #30 History Medical History General CAD? No Angina: No [place]: No Hypertension? No Hyperlipidemia? No CHF? No DVT? No PE? No COPD? No Asthma? Yes Anemia? No GERD? No Gastric ulcers? No GI Bleed? No Hernia? No Thyroid Problems? No Hypothyroidism? No CVA? No Seizures? No Diabetes? No Renal Insuffiency? No End Stage Renal Disease? No UTI? No Stones? Yes BPH? No GB Disease: No Nephritic Syndrome? No Asplenia? No Hepatitis? No Sickle Cell Disease? No Arthritis? No Migraines? No Cataracts? No Glaucoma? No MRSA? No HIV? No TB? No Anxiety? No Depression? No Cancer? No More? 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 Physical Exam Vital Signs Vital Signs Date Time Temp Pulse Resp B/P Pulse O2 O2 Flow FiO2 Ox Delivery Rate 06/26 1632 98 20 131/70 97 06/26 1520 105 20 140/90 97 06/26 1514 20 06/26 1419 98.1 102 20 141/94 98 General Appearance mild distress (on knees in pain, cryiing) Eye Exam - bilateral eye normal exam, bilateral eye PERRL, bilateral eye EOMI Neck normal inspection, non-tender, supple, full range of motion Respiratory Status Yes: trachea midline, chest symmetrical, non tender chest. No: respiratory distress, tender on palpation, use of accessory muscles, pain on inspiration, pain on expiration, productive cough, non productive cough. Lung Sounds bilateral: normal breath sounds, lungs clear. Cardiovascular normal exam, regular rate/rhythm, no peripheral edema, no gallop, no JVD, no murmur, no rub, normal peripheral pulses Gastrointestinal normal bowel sounds, normal exam, non tender, soft, no organomegaly, no pulsatile mass, no guarding, rebound Back no vertebral tenderness, bowel/bladder continent, CVA tenderness (R) Strength 5 Upper Ext (L), 5 Upper Ext (R), 5 Lower Ext (L), 5 Lower Ext (R) Neurologic alert, normal exam, no motor/sensory deficits, oriented x 3 Glascow Coma Scale Glascow Coma Scale Response Value EYE response: 4 Spontaneously 4 MOTOR response: 6 OBEYS 6 VERBAL response: 5 Oriented & Converses 5 Total 15 Skin intact, normal color, warm/dry Medical Decision Making LABS/Meds/Orders Pt receiving controlled substance in ED? Yes Tommy was queried for this patient? Yes Reference #: [id number] Risks/benefits of using a controlled substance for treatment were discussed w/pt by me Results/Orders Laboratory Tests 06/26/17 1450: Lactic Acid 1.0 06/26/17 1420: Sodium 135 L, Potassium 3.2 L, Chloride 102, Carbon Dioxide 20 L, BUN 7, Creatinine 0.9, Estimated Creat Clear 113, Estimated GFR (MDRD) 76, Glucose 97, Calcium 9.0, Total Bilirubin 0.9, AST 27, ALT 44, Alkaline Phosphatase 68, Total Protein 8.3 H, Albumin 3.7, Globulin 4.6 H, Albumin/Globulin Ratio 0.8 L, WBC 19.3 H, RBC 4.49, Hgb 13.8, Hct 41.1, MCV 91.5, RDW 12.9, Plt Count 339, MPV 7.4, Gran % 75.5, Gran # 14.6 H, Total Counted 100, Lymphocytes % 16.7, Monocytes % 6.9, Eosinophils % 0.6, Basophils % 0.3, Neutrophils 74, Lymphocytes (Manual) 15, Lymphocytes # 3.2, Monocytes (Manual) 2, Monocytes # 1.3 H, Eosinophils # 0.1, Basophils # 0.1, Atypical Lymphocytes 9 H, Platelet Estimate NORMAL, PUBS MCHC 33.8, MCH 30.9, Urine Color YELLOW, Urine Appearance TURBID, Urine pH 6.5, Ur Specific [place] 1.010, Urine Protein TRACE H, Urine Ketones NEGATIVE, Urine Blood 1+ H, Urine Nitrate NEGATIVE, Urine Bilirubin NEGATIVE, Urine Urobilinogen 0.2, Ur Leukocyte Esterase 3+ H, Urine RBC 3-5, Urine WBC TNTC, Ur Squamous Epith Cells 5-10, Urine Bacteria 3+, Urine Glucose NEGATIVE Current Medication Orders Sig/Dennis Start time Last Medication Dose Route Stop Time Status Admin Ceftriaxone Sodium 1 GM ONCE ONE 06/26 1545 CAN Sodium Chloride 50 ML IV 06/26 1614 Ceftriaxone Sodium 0 .STK-MED ONE 06/26 1512 DC IV Ondansetron HCl 0 .STK-MED ONE 06/26 1512 DC .ROUTE Sodium Chloride 50 ML .STK-MED ONE 06/26 1512 DC IV Morphine Sulfate 0 .STK-MED ONE 06/26 1511 DC .ROUTE Ceftriaxone Sodium 1 GM ONCE ONE 06/26 1500 DC 06/26 Sodium Chloride 50 ML IV 06/26 1529 1514 Ondansetron HCl 4 MG ONCE ONE 06/26 1500 DC 06/26 IV 06/26 1501 1514 Morphine Sulfate 4 MG ONCE ONE 06/26 1445 DC 06/26 IV 06/26 1446 1514 Sodium Chloride 10 ML PRN PRN 06/26 1430 AC IV 06/27 1424 Orders Procedure Date/time Status DIET-NOTHING BY MOUTH 06/26 D Active CULTURE, BLOOD 06/26 1442 Active LACTIC ACID 06/[address] ABD/PELVIS REQ 06/26 1425 Complete IV SALINE LOCK 06/26 1424 Active URINALYSIS/COMPLETE 06/26 1424 Complete URINE 06/26 1424 Complete CBC WITH AUTO DIFF 06/26 1424 Complete CHEM 12 PROFILE 06/26 1424 Complete CULTURE, URINE 06/26 1420 Active DIFFERENTIAL-WBC 06/26 1420 Complete XRAY/CT/US XRAY/CT/US CT abdomen, pelvis CT interpretation by reviewed by me, discussed w/radiologist Time results known: 1527 CT Results normal/NAD, stent in bladder; on review of prior CT, Dr. Rosales thinks the patient more likely had a phlebolith. He does not see stranding or hydronephrosis. Consult MD Physician Consult 1 Time Called 1532 Reason Pt. 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 Physician Consult 2 Time Called 1625 Reason Pt. Condition, Urology eval/care Comments Dr. Cooley mobile application architect for urology: reviewed patient chart, states improving WBC, has stent colic, gave RX recommendations (Percocet5, number 10;Flomax;Bactrim) f /u clinic [phone] call for appt on 06/28/17. Departure Departure Time of Disposition 1627 Disposition DC Home or Self Care(routine) Clinical Impression Primary Impression: Flank pain Secondary Impressions: History of ureter stent, Pyuria, Renal colic on right side Condition STABLE Referrals STONE ADITYA SHAH (PCP/Family) Patient Instructions Kidney Stones -- Adult Additional Instructions Call Urology for follow up appointment next week; Rx Percocet 5, number ten, no refills, and further pain management per Urology at . Rx Flomax. Rx Pyridium. Discharge Counseling Counseled pt/family regarding diagnosis, test results, R/B of controlled subst., medications/RX, home care, follow up needs Prescriptions Current Visit Scripts TAMSULOSIN HCL (Flomax 0.4MG) 0.4 MG PO QHS #15 CAP Phenazopyridine HCl (Pyridium) 100 MG PO Q8 #6 TAB SULFAMETHOXAZOLE/TRIMETHOPRIM (Bactrim 400-80 MG Tablet) 1 TAB PO BID #14 TAB OXYCODONE HCL/ACETAMINOPHEN (Percocet 5-325 MG Tablet) 1 TAB PO Q6HP PRN flank pain #10 TAB ED Critical Care Critical Care No at 1911
--- NOTE | 2017-06-26 14:48 | Emergency Room Report ---
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 N Clinical Suspician of Infection? N Mental Status: 1 - Regular (Normal Baseline) Sepsis Risk:Possible Sepsis Risk Have you (or family members/close friends) recently traveled outside the [place]? N If Yes, where/when: Have you had exposure to infectious disease within the past month? N TB? Other? Specify: R flank pain, s/p stent placement at for large ureteral stone, approximately two weeks ago. Reports fever last night and dry heaves. Intense pain on right. LMP two weeks ago. Last Percocet was about five days ago. ALLERGIES Coded Allergies: naproxen (From NAPROSYN) (Intermediate, I-ITCHING 01/18/17) ibuprofen (Mild, NA-NAUSEA/VOMITING 01/18/17) Home Medications Reported Medications Loratadine (Claritin 10MG) 10 MG PO DAILY #30 BUPROPION HCL (Bupropion HCl 75MG) 75 MG PO QHS #60 Quetiapine Fumarate 50 MG PO BID #60 HYDROCHLOROTHIAZIDE (Hydrochlorothiazide) 25 MG PO DAILY #30 History Medical History General CAD? No Angina: No [place]: No Hypertension? No Hyperlipidemia? No CHF? No DVT? No PE? No COPD? No Asthma? Yes Anemia? No GERD? No Gastric ulcers? No GI Bleed? No Hernia? No Thyroid Problems? No Hypothyroidism? No CVA? No Seizures? No Diabetes? No Renal Insuffiency? No End Stage Renal Disease? No UTI? No Stones? Yes BPH? No GB Disease: No Nephritic Syndrome? No Asplenia? No Hepatitis? No Sickle Cell Disease? No Arthritis? No Migraines? No Cataracts? No Glaucoma? No MRSA? No HIV? No TB? No Anxiety? No Depression? No Cancer? No More? 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 Physical Exam Vital Signs Vital Signs Date Time Temp Pulse Resp B/P Pulse O2 O2 Flow FiO2 Ox Delivery Rate 06/26 1632 98 20 131/70 97 06/26 1520 105 20 140/90 97 06/26 1514 20 06/26 1419 98.1 102 20 141/94 98 General Appearance mild distress (on knees in pain, cryiing) Eye Exam - bilateral eye normal exam, bilateral eye PERRL, bilateral eye EOMI Neck normal inspection, non-tender, supple, full range of motion Respiratory Status Yes: trachea midline, chest symmetrical, non tender chest. No: respiratory distress, tender on palpation, use of accessory muscles, pain on inspiration, pain on expiration, productive cough, non productive cough. Lung Sounds bilateral: normal breath sounds, lungs clear. Cardiovascular normal exam, regular rate/rhythm, no peripheral edema, no gallop, no JVD, no murmur, no rub, normal peripheral pulses Gastrointestinal normal bowel sounds, normal exam, non tender, soft, no organomegaly, no pulsatile mass, no guarding, rebound Back no vertebral tenderness, bowel/bladder continent, CVA tenderness (R) Strength 5 Upper Ext (L), 5 Upper Ext (R), 5 Lower Ext (L), 5 Lower Ext (R) Neurologic alert, normal exam, no motor/sensory deficits, oriented x 3 Glascow Coma Scale Glascow Coma Scale Response Value EYE response: 4 Spontaneously 4 MOTOR response: 6 OBEYS 6 VERBAL response: 5 Oriented & Converses 5 Total 15 Skin intact, normal color, warm/dry Medical Decision Making LABS/Meds/Orders Pt receiving controlled substance in ED? Yes Tommy was queried for this patient? Yes Reference #: [id number] Risks/benefits of using a controlled substance for treatment were discussed w/pt by me Results/Orders Laboratory Tests 06/26/17 1450: Lactic Acid 1.0 06/26/17 1420: Sodium 135 L, Potassium 3.2 L, Chloride 102, Carbon Dioxide 20 L, BUN 7, Creatinine 0.9, Estimated Creat Clear 113, Estimated GFR (MDRD) 76, Glucose 97, Calcium 9.0, Total Bilirubin 0.9, AST 27, ALT 44, Alkaline Phosphatase 68, Total Protein 8.3 H, Albumin 3.7, Globulin 4.6 H, Albumin/Globulin Ratio 0.8 L, WBC 19.3 H, RBC 4.49, Hgb 13.8, Hct 41.1, MCV 91.5, RDW 12.9, Plt Count 339, MPV 7.4, Gran % 75.5, Gran # 14.6 H, Total Counted 100, Lymphocytes % 16.7, Monocytes % 6.9, Eosinophils % 0.6, Basophils % 0.3, Neutrophils 74, Lymphocytes (Manual) 15, Lymphocytes # 3.2, Monocytes (Manual) 2, Monocytes # 1.3 H, Eosinophils # 0.1, Basophils # 0.1, Atypical Lymphocytes 9 H, Platelet Estimate NORMAL, PUBS MCHC 33.8, MCH 30.9, Urine Color YELLOW, Urine Appearance TURBID, Urine pH 6.5, Ur Specific [place] 1.010, Urine Protein TRACE H, Urine Ketones NEGATIVE, Urine Blood 1+ H, Urine Nitrate NEGATIVE, Urine Bilirubin NEGATIVE, Urine Urobilinogen 0.2, Ur Leukocyte Esterase 3+ H, Urine RBC 3-5, Urine WBC TNTC, Ur Squamous Epith Cells 5-10, Urine Bacteria 3+, Urine Glucose NEGATIVE Current Medication Orders Sig/Dennis Start time Last Medication Dose Route Stop Time Status Admin Ceftriaxone Sodium 1 GM ONCE ONE 06/26 1545 CAN Sodium Chloride 50 ML IV 06/26 1614 Ceftriaxone Sodium 0 .STK-MED ONE 06/26 1512 DC IV Ondansetron HCl 0 .STK-MED ONE 06/26 1512 DC .ROUTE Sodium Chloride 50 ML .STK-MED ONE 06/26 1512 DC IV Morphine Sulfate 0 .STK-MED ONE 06/26 1511 DC .ROUTE Ceftriaxone Sodium 1 GM ONCE ONE 06/26 1500 DC 06/26 Sodium Chloride 50 ML IV 06/26 1529 1514 Ondansetron HCl 4 MG ONCE ONE 06/26 1500 DC 06/26 IV 06/26 1501 1514 Morphine Sulfate 4 MG ONCE ONE 06/26 1445 DC 06/26 IV 06/26 1446 1514 Sodium Chloride 10 ML PRN PRN 06/26 1430 AC IV 06/27 1424 Orders Procedure Date/time Status DIET-NOTHING BY MOUTH 06/26 D Active CULTURE, BLOOD 06/26 1442 Active LACTIC ACID 06/[address] ABD/PELVIS REQ 06/26 1425 Complete IV SALINE LOCK 06/26 1424 Active URINALYSIS/COMPLETE 06/26 1424 Complete URINE 06/26 1424 Complete CBC WITH AUTO DIFF 06/26 1424 Complete CHEM 12 PROFILE 06/26 1424 Complete CULTURE, URINE 06/26 1420 Active DIFFERENTIAL-WBC 06/26 1420 Complete XRAY/CT/US XRAY/CT/US CT abdomen, pelvis CT interpretation by reviewed by me, discussed w/radiologist Time results known: 1527 CT Results normal/NAD, stent in bladder; on review of prior CT, Dr. Rosales thinks the patient more likely had a phlebolith. He does not see stranding or hydronephrosis. Consult MD Physician Consult 1 Time Called 1532 Reason Pt. 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 Physician Consult 2 Time Called 1625 Reason Pt. Condition, Urology eval/care Comments Dr. Cooley air sampling and monitoring for urology: reviewed patient chart, states improving WBC, has stent colic, gave RX recommendations (Percocet5, number 10;Flomax;Bactrim) f /u clinic [phone] call for appt on 06/28/17. Departure Departure Time of Disposition 1627 Disposition DC Home or Self Care(routine) Clinical Impression Primary Impression: Flank pain Secondary Impressions: History of ureter stent, Pyuria, Renal colic on right side Condition STABLE Referrals STONE ADITYA SHAH (PCP/Family) Patient Instructions Kidney Stones -- Adult Additional Instructions Call Urology for follow up appointment next week; Rx Percocet 5, number ten, no refills, and further pain management per Urology at . Rx Flomax. Rx Pyridium. Discharge Counseling Counseled pt/family regarding diagnosis, test results, R/B of controlled subst., medications/RX, home care, follow up needs Prescriptions Current Visit Scripts TAMSULOSIN HCL (Flomax 0.4MG) 0.4 MG PO QHS #15 CAP Phenazopyridine HCl (Pyridium) 100 MG PO Q8 #6 TAB SULFAMETHOXAZOLE/TRIMETHOPRIM (Bactrim 400-80 MG Tablet) 1 TAB PO BID #14 TAB OXYCODONE HCL/ACETAMINOPHEN (Percocet 5-325 MG Tablet) 1 TAB PO Q6HP PRN flank pain #10 TAB ED Critical Care Critical Care No at 1807
[2017-06-26 14:57] LABS: NEUTROPHILS 74 % (42-76)
--- NOTE | 2017-06-26 15:38 | RADIOLOGY REPORT PS360 ---
CT ABD PELVIS W/O CONTRAST COMPARISON: CT scan abdomen pelvis 06/04/2017 HISTORY: Left flank pain recent left ureteral stent placement,:pyuria Technique: Multiaxial scans obtained from hemidiaphragms the pelvic floor and were performed without IV or oral contrast. Sagittal and coronal reformats were evaluated as well. FINDINGS: The lower lung [place] are clear. The liver spleen stomach pancreas and gallbladder appear grossly normal. The adrenal glands are normal. The kidneys are normal in size. There is left ureteral stent extending from the left renal pelvis to the bladder. There is a tiny calculus presenting at the base of urinary bladder unchanged in position from the previous study 06/04/2017. The ureteral stent enters the bladder above this level suggesting that this calculus seen on previous exam is a phlebolith and not a distal ureteral calculus. The bladder is moderately decompressed. Right kidney appears normal. The small bowel is unremarkable. There is large amount stool in the right colon. There may be a tiny amount of cul-de-sac fluid.. IMPRESSION: Satisfactory placement of left ureteral stent, no obvious obstructive uropathy left kidney and no obvious distal ureteral or bladder calculus seen at this time.
[2017-06-26] MEDS ORDERED: FLOMAX 0.4MG C0.4 MG PO (16:34)
[2017-06-26] MEDS ORDERED: PYRIDIUM100 M2 PO (16:34)
[2017-06-26] MEDS ORDERED: BACTRIM 400 MG-1 TAB PO (16:34)
[2017-06-26] MEDS ORDERED: PERCOCET1 TAB PO (16:34)
[2017-06-26 16:39] VITALS: BP 131/70
== END 2017-06-26 16:40 | disposition home or self-care (01) ==
LOC: ER 14:18
PROVIDERS: Emergency Medicine
DX: N23 Unspecified renal colic (principal); Z87.442 Personal history of urinary calculi; F17.210 Nicotine dependence, cigarettes, uncomplicated; J45.909 Unspecified asthma, uncomplicated
CPT/HCPCS: J2405